=== PATIENT | female | born 1980 | race Caucasian/White ===

== ENCOUNTER 2016-11-25 15:56 | Inpatient (IN) ==
[2016-11-25] MEDS ORDERED: *HR* HYDROmorphone (PF) 1 MG/ML SYRINGE IVP ONE ×3 (16:25→18:32)
[2016-11-25] MEDS ORDERED: Ondansetron 4 MG/2 ML VIAL IVP ONE (16:25)
[2016-11-25] MEDS ORDERED: 0.9 % Sodium Chloride 1,000 ML IVC ONE ×2 (16:25→18:10)
--- NOTE | 2016-11-25 16:48 | Emergency Department Note ---
Disposition Clinical Impression: Intractable pain Abdominal pain Qualifiers: Abdominal location: epigastric Qualified Code(s): R10.13 - Epigastric pain Pancreatitis Qualifiers: Chronicity: acute Pancreatitis type: alcohol induced Acute pancreatitis complication: unspecified Qualified Code(s): K85.20 - Alcohol induced acute pancreatitis without necrosis or infection Disposition: Admitted As Inpatient Condition: Good Forms: Work/School Release, ED Satisfaction Letter Time of Disposition: 17:48 Abdominal Pain HPI - General Chief Complaint: ED Abdominal Pain Stated Complaint: "pancreatitis" Time Seen by Provider: 11/25/16 16:01 Source: patient Mode of arrival: ambulatory Limitations: no limitations Nursing Notes Reviewed: Yes Vital Signs Reviewed: Yes - History of Present Illness HPI Narrative: Patient presents emergency room with complaint of abdominal pain midepigastric area. This is similar to all of her other episodes of pancreatitis. She did that she drink alcohol again 3 days ago and since then has had severe pain. Denies fevers chills has had intermittent normal discomfort with nausea vomiting and no diarrhea. Denies chest pain or shortness of breath. This is identical longer other pancreatitis exacerbation secondary to alcohol Pt Subjective Complaint: abdominal pain Onset (ago): day(s) Consistency: constant Location: epigastric Pain Severity: severe Pain Scale: 10 Quality: stabbing Radiation: epigastric Migration to: no migration Worsens with: eating, vomiting, movement Associated symptoms: Reports: nausea, vomiting, chills. Denies: diarrhea, fever Treatments prior to arrival: none - Related Data Home Medications Medication Instructions Recorded Confirmed Buspirone HCl [Buspar] 15 mg PO BID 05/26/16 05/26/16 LORazepam [Ativan] 1 mg PO AD 05/26/16 05/26/16 Labetalol [Trandate] 100 mg PO BID 05/26/16 05/26/16 Pantoprazole Sodium [Protonix] 40 mg PO DAILY 05/26/16 05/26/16 Previous Rx's Medication Instructions Recorded CloNIDine HCl [Kapvay] 0.2 mg PO TID #90 05/27/16 Folic Acid 1 mg PO DAILY #30 tablet 05/27/16 Labetalol [Trandate] 100 mg PO BID #60 tablet 05/27/16 OxyCODONE/APAP 7.5/325 [Percocet 1 each PO Q6H PRN #20 tablet 05/27/16 7.5/325 MG] Thiamine (B-1) [Vitamin B-1] 100 mg PO DAILY #30 tablet 05/27/16 Vitamin B Complex/Vit C/Vit E 1 each PO DAILY #30 tablet 05/27/16 [Stresstab] Allergies Allergy/AdvReac Type Severity Reaction Status Date / Time No Known Allergies Allergy Verified 11/25/16 16:01 All systems ED: reviewed and negative except as stated. Constitutional: Denies: chills Cardiovascular: Denies: chest pain, palpitations Respiratory: Denies: dyspnea, wheezes Gastrointestinal: Reports: abdominal pain, nausea, vomiting. Denies: diarrhea Musculoskeletal: Denies: back pain, neck pain Abdominal Pain PMH - Past Medical History Medical history: Reports: hypertension, other Female Surgical History: Reports: no surgical history Psychiatric history: Reports: no psych history, depression - Social History Smoking status: Current every day smoker Alcohol use: Reports: heavy, recent Drug use: Reports: none Physical Exam - General Limitations: no limitations General appearance: alert, in no apparent distress - Chest Chest inspection: Present: normal inspection - Cardiovascular Cardiovascular exam: Present: normal rhythm, tachycardia, normal heart sounds - Abdominal Exam Abdominal exam: Present: soft, tenderness, guarding, normal bowel sounds. Absent: distention, rebound, rigidity, Hyman's sign, Rovsing's sign, tenderness at McBurney's Point, pulsatile mass, hernia - Extremities Exam Extremities exam: Present: normal inspection, full ROM - Neurological Exam Neurological exam: Present: alert, oriented X3, CN II-XII intact - Psychiatric Psychiatric exam: Present: normal affect, normal mood - Skin Skin exam: Present: warm, dry, intact, normal color Course Course Narrative: Patient seen and examined the time of arrival. See history of present illness. Patient presents today for what she thinks is an acute flareup of her pancreatitis. She has a 7/10 she drinks alcohol. Patient drank alcohol 3 days ago. Since then she has had intermittent epigastric pain and today it became constant. She denies any fevers chills she has intermittent nausea vomiting. Denies any diarrhea. Denies chest pain shortness of breath headache vision change. On arrival to the room patient is requesting medication patient physical exam is abdominal pain and discomfort. Mild guarding no rigidity no peritoneal symptoms. Symptoms appear to assess the epigastrium. "I need pain medicine" patient has no other acute findings and evaluation. IV access to be obtained fluids nausea medication pain medication given. Nothing by mouth status advised the patient will be placed. Patient laboratory workup also including lipase. Patient had CT scan performed in April. At that time. Refrain from CT this time because it is a similar presentation of her chronic pancreatitis Patient is otherwise stable resting comfortably in the bed. Admission process will be discussed on - Reevaluation(s) Reevaluation #1: Labs consistent with a nonobstructive pancreatitis at this time. Patient viral fluids and second dose of pain medication. Urinalysis is pending at this point. Initial process completed consultation placement patient was reviewed with the hospitalist . We reviewed the patient's presentation symptoms medical history multiple evaluations in the emergency room. Urinalysis and urine drug screen are pending. Otherwise no other acute issues noted during the treatment course and evaluation. Patient will be admitted to the hospital for definitive management with nothing by mouth status for acute pancreatitis. CT imaging was not done at this time secondary to patient recently having a CAT scan performed in April. Patient's symptoms appear to identical to her previous PEG otitis episodes. Abdomen is soft with no other specific point tenderness or issue. Patient is otherwise comfortable resting in the bed at this time. Time: 17:47 Vital Signs Temperature 97.8 F 11/25/16 15:57 Pulse Rate 127 11/25/16 15:57 Respiratory Rate 18 11/25/16 15:57 Blood Pressure 179/115 11/25/16 15:57 O2 Sat by Pulse Oximetry 99 11/25/16 15:57 Temperature 97.8 F 11/25/16 15:57 Pulse Rate 127 11/25/16 15:57 Respiratory Rate 18 11/25/16 15:57 Blood Pressure 179/115 11/25/16 15:57 O2 Sat by Pulse Oximetry 99 11/25/16 15:57 Oxygen Delivery Oxygen Delivery Room Air Abdominal Pain - MDM Narrative Medical decision making narrative: Abdominal pain, nausea, vomiting, pancreatitis - Medical Records Medical records reviewed: Yes I reviewed the patient's medical records. - Lab Data Lab results reviewed: Yes I reviewed the patient's lab results.
[2016-11-25 16:50] LABS: Basophils # 0.1 K/mcL (0.0-0.2); Basophils % 0.4 %; Eosinophils % 0.2 %; Hematocrit 42.8 % (35.3-44.9); Hemoglobin 15.1 g/dL (11.5-15.4); Immature Granulocytes % 0.4 % (0-4); Lymphocytes # 2.2 K/mcL (0.6-4.6); Mean Corpuscular HGB Conc 35.3 g/dL (31.6-35.5); Mean Corpuscular Hemoglobin 32.7 pg (28.0-33.3); Mean Corpuscular Volume 92.6 fL (83.0-100.0); Mean Platelet Volume 8.9 fL (9.4-12.4); Monocytes # 0.9 K/mcL (0.0-1.3); Neutrophils # 9.7 K/mcL (1.6-8.9); Platelet Count 260 K/mcL (140-400); Red Blood Count 4.62 M/mcL (3.82-4.97)
[2016-11-25 17:04] LABS: Alanine Aminotransferase 18 Units/L (0-55); Alkaline Phosphatase 90 Units/L (38-126); Aspartate Amino Transferase 57 Units/L (5-34); BUN/Creatinine Ratio 20 (6-26); Bilirubin,Direct 0.4 mg/dL (0.0-0.5); Bilirubin,Indirect 0.3 mg/dL (0.0-1.2); Bilirubin,Total 0.7 mg/dL (0.2-1.2); Blood Urea Nitrogen 14 mg/dL (7-20); Calcium 8.9 mg/dL (8.6-10.8); Carbon Dioxide 22 mEq/L (19-29); Chloride 99 mEq/L (98-109); Glucose 124 mg/dL (70-99); Lipase 245 Units/L (8-78); Osmolality,Calculated 292 (280-300); Potassium 3.3 mEq/L (3.5-4.5); Sodium 140 mEq/L (136-145); eGFR For African Americans > 60 (> 60); eGFR For Non-African Americans > 60 (> 60)
--- NOTE | 2016-11-25 17:18 | Emergency Department Note ---
START Narrative - START START: I personally interviewed and examined this patient and my medical decision- making was reviewed with the ED Resident Physician, Dr. Richardson. I agree with the documented findings, disposition and treatment plan as described except to the extent set forth below. She is a 36-year-old white female with a prior history of pancreatitis which is secondary to her alcohol use. Patient states she last drank on Monday and then has been having gradually worsening epigastric abdominal pain rating her back with nausea and vomiting for the last 48 hours. Patient denies any fevers or chills, no chest pain shortness of breath. No urinary symptoms or flank pain. Patient denies any other associated symptoms. On exam she has mild tenderness to palpation in the epigastric area otherwise abdomen is soft with no pain signs. Remainder of exam is unremarkable with the exception of a mild tachycardia. Initiated IV fluids, pain medications and antiemetics and patient with elevated lipase reflecting pancreatitis. We will obtain imaging and admit the patient for further IV fluids and pain control.
[2016-11-25 17:50] LABS: Bilirubin,Urine Small (Negative); Blood,Urine Small (Negative); Clarity,Urine Cloudy (Clear); Color,Urine Dark Yellow (Yellow); Glucose,Urine (UA) Normal (Normal); Ketones,Urine Trace mg/dL (Negative); Leukocyte Esterase,Urine Negative (Negative); Nitrite,Urine Negative (Negative); Protein,Urine >=300 mg/dL (Neg-Trace); Specific Gravity,Urine > 1.030 (1.010-1.025); Urobilinogen,Urine Normal (Normal)
[2016-11-25 17:55] LABS: Bacteria,Urine Few per hpf (None-Few); Hyaline Casts,Urine Few per lpf (None-Few); Squamous Epithelial Cell,Urine Many per lpf (None-Few)
[2016-11-25] MEDS ORDERED: *HR* HYDROmorphone (PF) 1 MG/ML SYRINGE IVP PRN (18:06)
[2016-11-25] MEDS ORDERED: Naloxone 0.4 MG/ML INJ IVP PRN (18:06)
[2016-11-25] MEDS ORDERED: Ondansetron 4 MG/2 ML VIAL IVP PRN (18:06)
[2016-11-25] MEDS ORDERED: *HR* Metoprolol 5 MG/5 ML VIAL IVP PRN (18:10)
[2016-11-25] MEDS ORDERED: Potassium Chloride 20 MEQ, Lidocaine 1% 2 ML in D5% in Water 250 ML IVPB ONE (18:12)
[2016-11-25] MEDS ORDERED: 0.9 % Sodium Chloride 1,000 ML IVC SCH ×2 (18:15→20:19)
--- NOTE | 2016-11-25 18:20 | Internal Med History&Physical ---
<Breanna Tate M - Last Filed: 11/25/16 20:41> Date of Encounter: 11/25/16 Time of Encounter: 18:20 Assessment and Plan (1) Pancreatitis Current visit: No Status: Acute Patient with recurrent pancreatitis, reports she drank alcohol on Monday. She presents with abdominal pain, nausea and vomiting. Lipase elevated to 245. AST elevated to 57. 2L fluid boluses ordered 0.9NS at 150ml/hr CT abd/pelvis NPO Advance to clear liquids tomorrow if tolerated IV dilaudid PRN for pain Zofran PRN for nausea Narcan PRN for respiratory depression. Qualifiers: Chronicity: acute Pancreatitis type: alcohol induced Acute pancreatitis complication: unspecified Qualified Code(s): K85.20 - Alcohol induced acute pancreatitis without necrosis or infection (2) Hypokalemia Current visit: No Status: Acute Potassium of 3.3. 20mEq of potassium IVPB recheck chemistry tomorrow. (3) Alcohol dependence Current visit: No Status: Chronic Patient reports she drinks 2-3 times per week, despite having chronic pancreatitis and knowing that alcohol aggravates her pancreatitis. Serum and urine alcohol checks CIWA protocol. MVI IV fluids x 3. SWK consulted. Qualifiers: Substance use status: other alcohol-induced disorder Qualified Code(s): F10.288 - Alcohol dependence with other alcohol-induced disorder (4) Tachycardia Current visit: Yes Status: Acute HR 120s, likely secondary to dehydration with poor appetite yesterday and nausea /vomiting today. UA consistent with dehydration. Will hydrate with 2L of fluid boluses and 0.9NS at 150mL/hr. Continuous cardiac rehab nurse. (5) Hypertension Current visit: No Status: Acute Patient reports she hasn't taken any medication for her blood pressure recently due to lack of insurance. Patient hypertensive. Start metoprolol 25mg XL daily, and Lisinopril 5mg daily. Metoprolol 5mg IVP Q6hr PRN for SBP > 160 or DBP > 100. Qualifiers: Hypertension type: essential hypertension Qualified Code(s): I10 - Essential (primary) hypertension (6) Proteinuria Current visit: Yes Status: Acute UA showed large proteinuria. May be due to dehydration, but will check Hgb A1c , Urine P/C, urine microalbumin. Repeat UA tomorrow morning. Qualifiers: Proteinuria type: unspecified Qualified Code(s): R80.9 - Proteinuria, unspecified (7) DVT prophylaxis Current visit: No Status: Acute encourage ambulation anti-embolic stockings lovenox 40mg SQ daily Internal Medicine - H&P: HPI Chief complaint: abdominal pain, nausea and vomiting Admitted From: Emergency Dept Plans for Post Hospital Care: Home History of present illness: Ms. Anderson is a 36 year old female with history of chronic pancreatitis and hypertension and anxiety presents to the emergency room with complaints of abdominal pain, nausea, and vomiting. Patient reports yesterday she had a poor appetite, and abdominal pain started last evening. She describes it as sharp, constant, and worsening over time. It was somewhat relieved by pain medication given in the emergency department. Today she developed nausea and vomiting, and has not been able to eat or drink anything all day. She reports some lightheadedness, some palpitations. She denies any headache, chest pain, shortness of breath, or cough. She reports chills and sweats. Patient reports she drank alcohol on Monday, and knows that this is what exacerbates her pancreatitis. Evaluation emergency department revealed mildly elevated white blood cell count of 12.9. Elevated lipase of 245. Elevated AST of 57. She is tachycardic with heart rate in the 120s to 130s. Blood pressure is also elevated. She was mildly hypokalemic with potassium of 3.3. On exam, patient is alert and oriented, in no acute distress. Heart has tachycardic but regular rhythm, lungs are clear bilaterally to auscultation. Abdomen is tender to palpation in epigastric and right upper quadrant. Past Med Surg Social Fam HX - Past Medical History Medical history: hypertension, other Psychiatric history: depression - Past Surgical History Surgical History: no surgical history, other (tonsillectomy) - Social History Smoking Status: Current every day smoker Smokeless Tobacco Status: No Alcohol use: heavy, recent Drug use: none - Family History Father Living Status: Still Living Hx Family Cardiac Disorders: No Hx Family Respiratory Disorders: No Hx Family Cancer: Yes Hx Family GI Disorders: No Hx Family Endocrine Disorder: No Hx Family Neuromuscular Disorders: No Hx Family Neurologic Disorders: No Hx Family HEENT Disorders: No Hx Family Autoimmune Disorders: No Internal Medicine - H&P: Meds No Known Home Drugs 11/25/16 [History] Allergies No Known Allergies Allergy (Verified 11/25/16 16:01) All Systems PM: A 10-system review of systems was performed and is negative for pertinent findings except as documented above in the HPI. - Constitutional Constitutional: anorexia, chills, no fever(s), no night sweats - EENT Eyes: no change in vision, no discharge, no pain, no photophobia Ears: no ear discharge, no ear pain, no tinnitus Nose, mouth and throat: no dysphagia, no nasal discharge, no neck pain, no sore throat - Cardiovascular Cardiovascular ROS IM: lightheadedness, palpitations, no chest pain, no diaphoresis, no dyspnea, no syncope - Respiratory Respiratory: no cough, no dyspnea, no wheezing, no excessive phlegm production - Gastrointestinal Gastrointestinal: abdominal pain, nausea, vomiting, no diarrhea, no hematemesis , no hematochezia, no melena - Genitourinary Genitourinary: no change in urinary stream, no dysuria, no flank pain, no hematuria - Musculoskeletal Musculoskeletal ROS IM: no numbness, no tingling - Integumentary Integumentary IM: no rash, no unusual bruising - Neurological Neurological ROS: no confusion, no convulsions, no focal weakness, no numbness, no tingling, no tremor(s) - Hematologic/Lymphatic Hematologic/Lymphatic: no easy bruising - Constitutional Vitals: Temp Pulse Resp BP Pulse Ox 97.8 F 122 16 168/107 97 11/25/16 15:57 11/25/16 17:30 11/25/16 17:30 11/25/16 17:30 11/25/16 17:30 General appearance: Present: A&O X 3, pleasant, obese - Head Head exam: Present: atraumatic, normocephalic - Eye Eye exam: Present: PERRL, conjuntiva pink, sclera anicteric Pupils: Present: PERRL - Neck Neck exam general surgery: Present: supple, trachea midline. Absent: lymphadenopathy - Respiratory Respiratory exam: Present: CTAB. Absent: accessory muscle use, rales, rhonchi, wheezes - Cardiovascular Cardiovascular exam: Present: +S1, +S2, tachycardia. Absent: diastolic murmur, gallop, rubs, systolic murmur - GI/Abdominal GI/Abdominal exam: Present: guarding, normal bowel sounds, soft, tenderness, no peritoneal signs. Absent: distended - Extremities Exam Extremities exam: Present: warm, radial pulses palpable and symetrical. Absent : calf tenderness, cyanotic, pedal edema - Neurological Exam Neurological exam: Present: CN II-XII intact, oriented X3, no focal deficits. Absent: facial droop, speech deficit - Skin Skin exam: Present: dry, intact Internal Med - H&P Results - Labs CBC & Chem 7: 11/25/16 16:38 11/25/16 16:38 Labs: All Lab Results (24 Hours) 11/25/16 11/25/16 11/25/16 Range/Units 16:38 16:38 17:40 WBC 12.9 H (4.3-11.1) K/mcL RBC 4.62 (3.82-4.97) M/mcL Hgb 15.1 (11.5-15.4) g/dL Hct 42.8 (35.3-44.9) % MCV 92.6 (83.0-100.0) fL MCH 32.7 (28.0-33.3) pg MCHC 35.3 (31.6-35.5) g/dL RDW 12.0 (11.5-14.5) % Plt Count 260 (140-400) K/mcL MPV 8.9 L (9.4-12.4) fL Immature Gran % 0.4 (0-4) % Seg Neutrophils % 75.0 % Lymphocytes % 17.0 % Monocytes % 7.0 % Eosinophils % 0.2 % Basophils % 0.4 % Neutrophils # 9.7 H (1.6-8.9) K/mcL Lymphocytes # 2.2 (0.6-4.6) K/mcL Monocytes # 0.9 (0.0-1.3) K/mcL Eosinophils # 0.0 (0.0-0.6) K/mcL Basophils # 0.1 (0.0-0.2) K/mcL Immature Plt Fraction 3.0 (1.1-6.1) % Sodium 140 (136-145) mEq/L Potassium 3.3 L (3.5-4.5) mEq/L Chloride 99 (98-109) mEq/L Carbon Dioxide 22 (19-29) mEq/L BUN 14 (7-20) mg/dL Creatinine 0.69 (0.57-1.11) mg/dL Est GFR ( Amer) > 60 (> 60) Est GFR (Non-Af Amer) > 60 (> 60) BUN/Creatinine Ratio 20 (6-26) Glucose 124 H (70-99) mg/dL Calculated Osmolality 292 (280-300) Calcium 8.9 (8.6-10.8) mg/dL Total Bilirubin 0.7 (0.2-1.2) mg/dL Direct Bilirubin 0.4 (0.0-0.5) mg/dL Indirect Bilirubin 0.3 (0.0-1.2) mg/dL AST 57 H (5-34) Units/L ALT 18 (0-55) Units/L Alkaline Phosphatase 90 (38-126) Units/L Serum Total Protein 8.0 (6.0-8.3) g/dL Albumin 4.0 (3.5-5.0) g/dL Globulin 4.0 H (2.4-3.5) g/dL Albumin/Globulin Ratio 1.0 L (1.1-2.2) Lipase 245 H (8-78) Units/L Urine Color Dark Yellow (Yellow) Urine Clarity Cloudy A (Clear) Urine pH 6.0 (5.0-8.0) pH Units Ur Specific Hensel > 1.030 H (1.010-1.025) Urine Protein >=300 H (Neg-Trace) mg/dL Urine Glucose (UA) Normal (Normal) mg/dL Urine Ketones Trace H (Negative) mg/dL Urine Blood Small H (Negative) Urine Nitrite Negative (Negative) Urine Bilirubin Small H (Negative) Urine Urobilinogen Normal (Normal) mg/dL Ur Leukocyte Esterase Negative (Negative) Urine Microscopic RBC 5-15 H (0-3) per hpf Urine Microscopic WBC 5-15 H (0-3) per hpf Ur Squamous Epith Cells Many H (None-Few) per lpf Urine Bacteria Few (None-Few) per hpf Hyaline Casts Few (None-Few) per lpf Ur Culture Indicated? YES A (NO) Urine Test (Negative) Urine Opiates Screen (Fxehhr=757) ng/mL Ur Barbiturates Screen (Idoicm=047) ng/mL Ur Phencyclidine Scrn (Cutoff=25) ng/mL Ur Amphetamines Screen (Wqzfmp=9152) ng/mL U Benzodiazepines Scrn (Kfpgjy=910) ng/mL Urine Cocaine Screen (Cutoff= 300) ng/mL U Marijuana (THC) Screen (Cutoff = 50) ng/mL 11/25/16 11/25/16 Range/Units 17:40 17:40 WBC (4.3-11.1) K/mcL RBC (3.82-4.97) M/mcL Hgb (11.5-15.4) g/dL Hct (35.3-44.9) % MCV (83.0-100.0) fL MCH (28.0-33.3) pg MCHC (31.6-35.5) g/dL RDW (11.5-14.5) % Plt Count (140-400) K/mcL MPV (9.4-12.4) fL Immature Gran % (0-4) % Seg Neutrophils % % Lymphocytes % % Monocytes % % Eosinophils % % Basophils % % Neutrophils # (1.6-8.9) K/mcL Lymphocytes # (0.6-4.6) K/mcL Monocytes # (0.0-1.3) K/mcL Eosinophils # (0.0-0.6) K/mcL Basophils # (0.0-0.2) K/mcL Immature Plt Fraction (1.1-6.1) % Sodium (136-145) mEq/L Potassium (3.5-4.5) mEq/L Chloride (98-109) mEq/L Carbon Dioxide (19-29) mEq/L BUN (7-20) mg/dL Creatinine (0.57-1.11) mg/dL Est GFR ( Amer) (> 60) Est GFR (Non-Af Amer) (> 60) BUN/Creatinine Ratio (6-26) Glucose (70-99) mg/dL Calculated Osmolality (280-300) Calcium (8.6-10.8) mg/dL Total Bilirubin (0.2-1.2) mg/dL Direct Bilirubin (0.0-0.5) mg/dL Indirect Bilirubin (0.0-1.2) mg/dL AST (5-34) Units/L ALT (0-55) Units/L Alkaline Phosphatase (38-126) Units/L Serum Total Protein (6.0-8.3) g/dL Albumin (3.5-5.0) g/dL Globulin (2.4-3.5) g/dL Albumin/Globulin Ratio (1.1-2.2) Lipase (8-78) Units/L Urine Color (Yellow) Urine Clarity (Clear) Urine pH (5.0-8.0) pH Units Ur Specific Hensel (1.010-1.025) Urine Protein (Neg-Trace) mg/dL Urine Glucose (UA) (Normal) mg/dL Urine Ketones (Negative) mg/dL Urine Blood (Negative) Urine Nitrite (Negative) Urine Bilirubin (Negative) Urine Urobilinogen (Normal) mg/dL Ur Leukocyte Esterase (Negative) Urine Microscopic RBC (0-3) per hpf Urine Microscopic WBC (0-3) per hpf Ur Squamous Epith Cells (None-Few) per lpf Urine Bacteria (None-Few) per hpf Hyaline Casts (None-Few) per lpf Ur Culture Indicated? (NO) Urine Test Negative (Negative) Urine Opiates Screen Positive H (Wbpwyc=159) ng/mL Ur Barbiturates Screen Negative (Cyqmfq=019) ng/mL Ur Phencyclidine Scrn Negative (Cutoff=25) ng/mL Ur Amphetamines Screen Negative (Kwojlb=7860) ng/mL U Benzodiazepines Scrn Negative (Hfjljh=180) ng/mL Urine Cocaine Screen Negative (Cutoff= 300) ng/mL U Marijuana (THC) Screen Negative (Cutoff = 50) ng/mL <Eleazar Esqueda - Last Filed: 11/26/16 04:50> Date of Encounter: 11/25/16 Internal Medicine - H&P: HPI Admitted From: Emergency Dept Plans for Post Hospital Care: Home History of present illness: Ms. Anderson is a 36 year old female with significant history of chronic alcoholism/dependency/abuse, retention, OA, GERD, anemia of chronic disease, alcohol induced pancreatitis/chronic pancreatitis, obesity with deconditioning, nicotine dependency, etc.. The patient was admitted to [facility] via the emergency department when she presented with reports of abdominal pain. The patient has a history of chronic recurring pancreatitis. Today symptoms reminiscent of exacerbations experiences in the past. Mid abdominal epigastric area with radiation to the flank. The patient is a knowledged alcoholic. Her pancreatic disease felt induced by her alcoholism. She acknowledges drinking alcohol again 3 days prior to presentation. The history has been one of fever and shaking at L4 constant indigestion and extended periods. Following her admission of alcohol she began to experience severe burning discomfort. She denies any associated fevers chills sweats. She had noticed intermittent episodes of extended discomfort associated with nausea or vomiting. Denies any diarrhea. Denies chest pain. Denies any upper respiratory complaints. She presents with severe pain that she rates at 10/10 severity stabbing constant. She denies a migratory feature to it with today's symptoms of epigastric and focus. Symptoms are worsened with any oral intake following episodes of vomiting and movement. Denies any evidences of bleeding events either coffee- ground emesis epistaxis with blood per rectum melena hematochezia. These studies are significant for significant electrolyte disturbances. Potassium 3.3 , ionized calcium 1.0, magnesium 1.0. Lactic acid 3.1. Ethyl alcohol level less than 10. Lipase elevated at 245 urinalysis demonstrating marked proteinuria and sediment suggestive of associated UTI and general dehydration. Vital signs were noteworthy for tachycardia with heart rates 120-140s and accelerated hypertension/urgency with measures of 179/115. EKG demonstrated chronic ischemic changes for progression of the anterior-anteroseptal wall. Mild T-wave inversions 3 and aVF and mild ST depressions in the lateral leads. No acute ischemic changes remanifest. Radiographic findings did note mild cardiomegaly likely consistent with nonischemic cardiomyopathy seen in alcoholic populations. CT of the abdomen and pelvis will be obtained. The patient was encephalopathic and mild delirium was apparent he has some background of dysphoria/depressed mood. A UDS was obtained and positive for opiates. Final identification pending. Her presentation was suggestive of early alcohol withdrawal. Concomitant positive UDS raises question of visit drug use with his own secondary to adverse withdrawal concerns.. SIRS/sepsis criteria are present at the time of admission. The patient will receive a comprehensive supportive care measures and be initiated on appropriate cautionary protocols and's surveillance. Vigorous fluid rehydration therapy completion of electrolyte and metabolic deficits, etc. proceed. She is at risk for further acute clinical decline and morbidity given her presenting chief concerns, findings and historic comorbidities.. Patient was visited and interviewed and examined. I examined this patient and my medical decision-making was reviewed with the Advanced Practice Nurse, Ms. Breanna Tate. For this encounter, I have reviewed the CABLE ENGINEER documentation, treatment plan, and medical decision making. I have had face to face time with this patient. Cumulative laboratory and radiographic database was reviewed, considered and discussed.. I agree with the documented findings, disposition and treatment plan as described except to the extent set forth below. Given the patient's presenting concerns, past medical history, clinical findings and symptoms, she was admitted at this time to undergo further evaluation and disposition. Condition is serious; unstable with multiorgan derangements. Prognosis is guarded. CODE STATUS is full. Past Med Surg Social Fam HX - Past Medical History Source: old records reviewed Medical history: arthritis, cardiomyopathy (?Alcohol-induced cardiomyopathy), GERD, hypertension, kidney stones, liver disease (Hepatic steatosis. Cholelithiasis.), migraine, renal disease, other (Chornic pancreatitis. Chronic alcoholism.) Psychiatric history: anxiety, depression, other - Past Surgical History Surgical History: non-contributory, other - Social History Smoking Status: Current every day smoker Drug use: none, unknown Occupational status: unemployed Current living situation: Home - Independent, Home Activity Level: Independent ambulation, Mostly sedentary Recent Out of Country Travel Within the Last 8 Weeks: No Exposure or Possible Exposure to Illness During Travel: No ROS unobtainable: due to mental status All Systems PM: A 10-system review of systems was performed and is negative for pertinent findings except as documented above in the HPI. - Constitutional Constitutional: as per HPI - EENT Eyes: as per HPI Ears: as per HPI Nose, mouth and throat: as per HPI - Cardiovascular Cardiovascular ROS IM: as per HPI - Respiratory Respiratory: as per HPI - Gastrointestinal Gastrointestinal: as per HPI - Genitourinary Genitourinary: as per HPI Menstruation: as per HPI - Musculoskeletal Musculoskeletal ROS IM: as per HPI - Integumentary Integumentary IM: as per HPI - Neurological Neurological ROS: as per HPI - Psychiatric Psychiatric: as per HPI - Endocrine Endocrine IM: as per HPI - Hematologic/Lymphatic Hematologic/Lymphatic: as per HPI - Allergic/Immunologic Allergic/Immunologic: as per HPI - Constitutional Vitals: Temp Pulse Resp BP Pulse Ox 97.9 F 139 16 162/133 94 11/25/16 20:37 11/25/16 20:37 11/25/16 20:37 11/25/16 20:37 11/25/16 20:37 Vital Signs Temp Pulse Resp BP Pulse Ox 11/25/16 20:37 97.9 F 139 16 162/133 94 11/25/16 19:15 16 194/135 11/25/16 17:30 122 16 168/107 97 11/25/16 17:00 128 16 167/113 97 11/25/16 15:57 97.8 F 127 18 179/115 99 Intake and Output 11/25/16 11/25/16 11/25/16 07:59 15:59 23:59 Intake Total 1000 / 1000 Balance 1000 / 1000 Intake: IV Fluids 1000 / 1000 0.9 % Sodium Chloride 1, 1000 / 1000 000 ML @ 3750 mls/hr IVC .Q16M ONE Rx#:[id number] Other: Weight 72.575 kg Patient Weight 11/25/16 23:59 Weight 72.575 kg Internal Med - H&P Results - Labs CBC & Chem 7: 11/25/16 16:38 11/25/16 16:38 - ABG Interpretation ABG results: 11/25/16 21:42 VBG pH 7.35 VBG pCO2 50 VBG pO2 57 H VBG HCO3 27.6 H - Attending Attestation My signature below is to certify that this patient is under my care and that I, or Nurse Practitioner working with me, has had a [id number] encounter with this patient.
[2016-11-25 18:21] LABS: Amphetamine Screen,Urine Negative ng/mL (Cutoff=1000); Barbiturate Screen,Urine Negative ng/mL (Cutoff=200); Benzodiazepines Screen,Urine Negative ng/mL (Cutoff=200); Cannabinoid Screen,Urine Negative ng/mL (Cutoff = 50); Cocaine Screen,Urine Negative ng/mL (Cutoff= 300); Opiate Screen,Urine Positive ng/mL (Cutoff=300); Phencyclidine Screen,Urine Negative ng/mL (Cutoff=25)
[2016-11-25] MEDS ORDERED: Ondansetron 4 MG/2 ML VIAL IV ONE (18:33)
[2016-11-25] MEDS ORDERED: *HR* LORazepam 2 MG/ML VIAL IVP PRN ×2 (18:33)
[2016-11-25] MEDS: *HR* LORazepam 2 MG/ML VIAL IVP PRN (19:57)
[2016-11-25] MEDS: Pantoprazole 40 MG VIAL IVP SCH (20:23)
[2016-11-25] MEDS ORDERED: traZODone 50 MG TABLET PO PRN (20:27)
[2016-11-25 20:44] LABS: Hemoglobin A1C 5.6 %
[2016-11-25 21:07] LABS: Protein/Creatinine Ratio,Urine 0.94 mg/mg (0-0.20)
[2016-11-25 21:08] LABS: Thyroid Stimulating Hormone 0.71 mcIU/mL (0.350-4.840); Triiodothyronine (T3) Free 2.65 pg/mL (1.71-3.71)
[2016-11-25] MEDS ORDERED: Benzonatate 100 MG CAPSULE PO PRN (21:20)
[2016-11-25] MEDS ORDERED: Scopolamine Patch 1.5 MG PATCH.TD72 TD ONE (21:20)
[2016-11-25] MEDS ORDERED: Ipratropium/Albuterol Neb 3 ML IH PRN (21:20)
[2016-11-25] MEDS ORDERED: *HR* Promethazine 25 MG/ML VIAL IVP PRN (21:25)
[2016-11-25] MEDS ORDERED: Ibuprofen 400 MG TABLET PO PRN (21:25)
[2016-11-25 22:02] LABS: VBG HCO3 27.6 mEq/L (21-27); VBG PH 7.35 pH Units (7.32-7.42)
[2016-11-25] MEDS: Metoprolol XL (24 HR) Succ 25 MG TAB.ER.24H PO SCH (22:07)
[2016-11-25 22:11] LABS: Beta-Hydroxybutyric Acid 0.24 mmol/L (0.02-0.27)
[2016-11-25] MEDS: *HR* HYDROmorphone (PF) 1 MG/ML SYRINGE IVP PRN (22:15)
[2016-11-25] MEDS: Melatonin 3 MG TABLET PO SCH (22:16)
[2016-11-25 22:33] LABS: Thyroid Stimulating Hormone 2.295 mcIU/mL (0.350-4.840)
[2016-11-25] MEDS: Nicotine 21 MG PATCH.TD24 TD SCH (22:41)
[2016-11-26] MEDS ORDERED: Promethazine 12.5 MG in 0.9 % Sodium Chloride 50 ML IVPB SCH
[2016-11-26] MEDS: *HR* HYDROmorphone (PF) 1 MG/ML SYRINGE IVP PRN ×11 (00:09→22:30)
[2016-11-26] MEDS ORDERED: Promethazine 12.5 MG in 0.9 % Sodium Chloride 50 ML IVPB PRN (01:01)
[2016-11-26] MEDS: *HR* LORazepam 2 MG/ML VIAL IVP PRN ×7 (02:34→20:26)
[2016-11-26] MEDS ORDERED: PHENobarbital 65 MG/ML VIAL IVP STA (03:57)
[2016-11-26] MEDS ORDERED: Calcium Gluconate 1,000 MG in D5% in Water 100 ML IVPB ONE (03:57)
[2016-11-26] MEDS ORDERED: Magnesium Sulfate 2 GM in D5% in Water 100 ML IVPB STA (04:03)
[2016-11-26] MEDS ORDERED: Potassium Chloride 20 MEQ, Lidocaine 1% 2 ML in D5% in Water 250 ML IVPB ONE ×2 (04:11→07:53)
[2016-11-26] MEDS ORDERED: 0.9 % Sodium Chloride 1,000 ML IVC ONE (04:13)
[2016-11-26] MEDS ORDERED: Haloperidol Lactate 5 MG/ML VIAL IVP PRN (04:14)
[2016-11-26 06:11] LABS: Basophils % 0.4 %; Eosinophils # 0.1 K/mcL (0.0-0.6); Eosinophils % 0.5 %; Hematocrit 37.8 % (35.3-44.9); Immature Granulocytes % 0.5 % (0-4); Lymphocytes # 2.4 K/mcL (0.6-4.6); Lymphocytes % 24.1 %; Mean Corpuscular HGB Conc 34.4 g/dL (31.6-35.5); Mean Corpuscular Volume 95.9 fL (83.0-100.0); Mean Platelet Volume 9.1 fL (9.4-12.4); Monocytes # 0.8 K/mcL (0.0-1.3); Monocytes % 8.2 %; Neutrophils # 6.6 K/mcL (1.6-8.9); Platelet Count 180 K/mcL (140-400); Red Blood Count 3.94 M/mcL (3.82-4.97); Red Cell Distribution Width 12.1 % (11.5-14.5); Segmented Neutrophils % 66.3 %
[2016-11-26 06:15] LABS: INR 1.2; Prothrombin Time 12.9 Seconds (9.4-12.1)
[2016-11-26 06:18] LABS: Activated Partial Thrombo Time 32.2 Seconds (26.0-36.0)
[2016-11-26 06:27] LABS: Phosphorous 1.9 mg/dL (2.3-4.7)
[2016-11-26 06:31] LABS: Lactate Dehydrogenase 183 Units/L (159-327); Lipase 259 Units/L (8-78)
[2016-11-26 06:33] LABS: BUN/Creatinine Ratio 20 (6-26); Blood Urea Nitrogen 13 mg/dL (7-20); Calcium 8.2 mg/dL (8.6-10.8); Carbon Dioxide 23 mEq/L (19-29); Chloride 105 mEq/L (98-109); Cholesterol 152 mg/dL (< 200); Glucose 171 mg/dL (70-99); HDL Cholesterol 77 mg/dL (40-59); LDL Cholesterol,Calculated 51 mg/dL (0-99); Osmolality,Calculated 292 (280-300); Potassium 3.2 mEq/L (3.5-4.5); Sodium 139 mEq/L (136-145); Triglycerides 120 mg/dL (< 150); eGFR For African Americans > 60 (> 60); eGFR For Non-African Americans > 60 (> 60)
[2016-11-26 06:51] LABS: Triiodothyronine (T3) Free 3.15 pg/mL (1.71-3.71)
[2016-11-26] MEDS: *HR* Enoxaparin 40 MG/0.4 ML SYRINGE SQ SCH (06:55)
[2016-11-26] MEDS ORDERED: *HR* LORazepam 2 MG/ML VIAL IVP PRN (08:21)
--- NOTE | 2016-11-26 08:38 | Internal Med Progress Note ---
Date of Encounter: 11/26/16 Time of Encounter: 08:35 - Assessment and plan (1) Acute alcoholic pancreatitis Current Visit: No Status: Acute Assessment and plan: Acute on chronic alcoholic pancreatitis Start normal saline with 10 mEq of potassium at 200 cc per hour, may decrease rate when she is less tachycardic and starts clear liquids Monitor lipase, may go back to NPO if pain gets worse Dilated as needed Qualifiers: Acute pancreatitis complication: no infection or necrosis Qualified Code(s) : K85.20 - Alcohol induced acute pancreatitis without necrosis or infection (2) Alcoholism Current Visit: No Status: Acute Assessment and plan: Start Librium and taper, hold if sedated Continue Ativan IV per CIWA scale (3) Hypokalemia Current Visit: No Status: Acute Assessment and plan: Replete as needed (4) Cigarette smoker Current Visit: No Status: Chronic Assessment and plan: Smoking cessation counseling given for 5 minutes, nicotine patch ordered (5) Tachycardia Current Visit: Yes Status: Acute Assessment and plan: Likely related to dehydration Increase IV fluids, may discontinue Cardizem drip once heart rate is better controlled Order an EKG (6) Proteinuria Current Visit: Yes Status: Acute Assessment and plan: Unclear etiology, patient does not show any signs of nephrotic syndrome Qualifiers: Proteinuria type: unspecified Qualified Code(s): R80.9 - Proteinuria, unspecified - Subjective Interval history: Complains of abdominal pain 8 out of 10 in intensity, denies any dysuria, feels very thirsty. Still very tachycardic, anxious, denies any shortness of breath - Constitutional Vitals: Temp Pulse Resp BP Pulse Ox 98.0 F 123 16 135/92 92 11/26/16 07:48 11/26/16 07:48 11/26/16 07:48 11/26/16 07:48 11/26/16 08:00 General appearance: Present: A&O X 3, pleasant, obese Exam: Dry mucosa - Head Head exam: Present: atraumatic, normocephalic - Eye Eye exam: Present: PERRL, conjuntiva pink, sclera anicteric Pupils: Present: PERRL - Neck Neck exam general surgery: Present: supple, trachea midline. Absent: lymphadenopathy - Respiratory Respiratory exam: Present: CTAB. Absent: accessory muscle use, rales, rhonchi, wheezes - Cardiovascular Cardiovascular exam: Present: RRR, +S1, +S2, tachycardia. Absent: diastolic murmur, gallop, rubs, systolic murmur - GI/Abdominal GI/Abdominal exam: Present: distended, normal bowel sounds, soft, tenderness ( Epigastric tenderness, no rebound), no peritoneal signs. Absent: rebound - Extremities Exam Extremities exam: Present: warm, radial pulses palpable and symetrical. Absent : calf tenderness, cyanotic, pedal edema - Neurological Exam Neurological exam: Present: CN II-XII intact, oriented X3, no focal deficits. Absent: pronater drift, facial droop, speech deficit - Skin Skin exam: Present: dry, intact Internal Medicine: Result - Labs CBC & Chem 7: 11/26/16 05:45 11/26/16 05:45 Labs: Short CBC 11/26/16 Range/Units 05:45 WBC 10.0 (4.3-11.1) K/mcL Hgb 13.0 D (11.5-15.4) g/dL Hct 37.8 (35.3-44.9) % Plt Count 180 (140-400) K/mcL Neutrophils # 6.6 (1.6-8.9) K/mcL BMP 11/26/16 05:45 Sodium 139 Potassium 3.2 L Chloride 105 Carbon Dioxide 23 BUN 13 Creatinine 0.65 Glucose 171 H Calcium 8.2 L - ABG Interpretation ABG results: PT/INR, D-dimer PT 12.9 Seconds (9.4-12.1) H 11/26/16 05:45 - Impressions Impressions Abdomen/Pelvis CT 11/25/16 20:15 IMPRESSION: Findings compatible with acute pancreatitis. No loculated fluid collections identified. Mild hyperdensity within the gallbladder is nonspecific but could represent biliary sludge. Hepatic steatosis. Nonobstructing nephrolithiasis. D/ / 11/25/2016 23:19:03 Gallo Robertson MD / [email or web address] Interpreting Provider: Gallo Robertson MD - VTE Documentation of Mechanical Device: Graduated compression elastic hosiery Consult Discharge Plan - Plan Referrals: NO,PCP [Primary Care Provider] -
[2016-11-26] MEDS: Nicotine 21 MG PATCH.TD24 TD SCH (08:48)
[2016-11-26] MEDS: Metoprolol XL (24 HR) Succ 25 MG TAB.ER.24H PO SCH (08:57)
[2016-11-26] MEDS: Magnesium Oxide 400 MG TABLET PO SCH ×2 (08:57→20:05)
[2016-11-26] MEDS: Pantoprazole 40 MG VIAL IVP SCH (08:57)
[2016-11-26] MEDS: Mag Hydrox/Al Hydrox/Simeth 30 ML UDC PO PRN ×2 (08:58→15:48)
[2016-11-26] MEDS ORDERED: Folic Acid 1 MG TABLET PO SCH (09:00)
[2016-11-26] MEDS ORDERED: Vitamin B Complex/Vit C/Vit E 1 EACH TABLET PO SCH (09:00)
[2016-11-26] MEDS: Promethazine 12.5 MG in 0.9 % Sodium Chloride 50 ML IVPB PRN (12:53)
[2016-11-26] MEDS: *HR* OxyCODONE Immed Rel 5 MG TABLET PO PRN (14:29)
[2016-11-26] MEDS ORDERED: Thiamine (B-1) 100 MG, Folic Acid 1 MG, MVI, adult with vitamin K 10 ML in 0.9 % Sodi... IVPB SCH ×2 (18:00)
[2016-11-26] MEDS: Melatonin 3 MG TABLET PO SCH (20:06)
[2016-11-27] MEDS: *HR* HYDROmorphone (PF) 1 MG/ML SYRINGE IVP PRN ×8 (00:45→22:07)
[2016-11-27] MEDS: *HR* LORazepam 2 MG/ML VIAL IVP PRN ×5 (03:28→22:14)
[2016-11-27 05:38] LABS: Alanine Aminotransferase 9 Units/L (0-55); Albumin 2.9 g/dL (3.5-5.0); Albumin/Globulin Ratio 0.8 (1.1-2.2); Alkaline Phosphatase 61 Units/L (38-126); Aspartate Amino Transferase 22 Units/L (5-34); BUN/Creatinine Ratio 6 (6-26); Bilirubin,Total 0.9 mg/dL (0.2-1.2); Blood Urea Nitrogen 3 mg/dL (7-20); Calcium 7.7 mg/dL (8.6-10.8); Carbon Dioxide 23 mEq/L (19-29); Chloride 104 mEq/L (98-109); Globulin 3.5 g/dL (2.4-3.5); Glucose 124 mg/dL (70-99); Lipase 68 Units/L (8-78); Osmolality,Calculated 280 (280-300); Potassium 3.5 mEq/L (3.5-4.5); Sodium 136 mEq/L (136-145); Total Protein 6.4 g/dL (6.0-8.3); eGFR For African Americans > 60 (> 60); eGFR For Non-African Americans > 60 (> 60)
[2016-11-27] MEDS: *HR* Enoxaparin 40 MG/0.4 ML SYRINGE SQ SCH (05:41)
[2016-11-27] MEDS: Pantoprazole 40 MG VIAL IVP SCH (07:52)
[2016-11-27] MEDS: Magnesium Oxide 400 MG TABLET PO SCH ×2 (07:52→20:07)
[2016-11-27] MEDS: Metoprolol XL (24 HR) Succ 25 MG TAB.ER.24H PO SCH (07:52)
[2016-11-27] MEDS: Nicotine 21 MG PATCH.TD24 TD SCH ×2 (07:52→08:10)
[2016-11-27] MEDS: *HR* OxyCODONE Immed Rel 5 MG TABLET PO PRN (11:44)
[2016-11-27] MEDS ORDERED: Magnesium Sulfate 2 GM in D5% in Water 100 ML IVPB ONE (12:44)
--- NOTE | 2016-11-27 16:38 | Internal Med Progress Note ---
Date of Encounter: 11/27/16 Time of Encounter: 16:36 - Assessment and plan (1) Acute alcoholic pancreatitis Current Visit: No Status: Acute Assessment and plan: Acute on chronic alcoholic pancreatitis Start normal saline with 10 mEq of potassium at 200 cc per hour, may decrease rate when she is less tachycardic and starts clear liquids Monitor lipase, may go back to NPO if pain gets worse Dilated as needed 11/27/2016 Acute on chronic alcoholic pancreatitis. Patient is comfortably lying in bed. Complains of occasional abdominal pain. We will continue nothing by mouth. Enzyme trending downwards. Qualifiers: Acute pancreatitis complication: no infection or necrosis Qualified Code(s) : K85.20 - Alcohol induced acute pancreatitis without necrosis or infection (2) Alcoholism Current Visit: No Status: Acute Assessment and plan: We will continue CIWA protocol (3) Tachycardia Current Visit: Yes Status: Acute Assessment and plan: Likely related to dehydration Increase IV fluids, may discontinue Cardizem drip once heart rate is better controlled Order an EKG 11/27/2016 Patient is in sinus rhythm. We will gradually taper the Cardizem drip. We will continue IV fluids. Close monitoring (4) Pancreatitis Current Visit: No Status: Acute Assessment and plan: Likely secondary to alcoholic etiology. Qualifiers: Chronicity: acute Pancreatitis type: unspecified pancreatitis type Acute pancreatitis complication: unspecified Qualified Code(s): K85.90 - Acute pancreatitis without necrosis or infection, unspecified - Subjective Interval history: 11/27/2016 Patient seen and examined. Chart reviewed. Patient complains of occasional abdominal pain. Patient denies chest pain, shortness of breath, vomiting and diarrhea. - Constitutional Vitals: Temp Pulse Resp BP Pulse Ox 97.9 F 108 18 111/82 97 11/27/16 15:42 11/27/16 15:42 11/27/16 15:42 11/27/16 15:42 11/27/16 16:02 General appearance: Present: A&O X 3, pleasant, obese - Head Head exam: Present: atraumatic, normocephalic - Eye Eye exam: Present: PERRL, conjuntiva pink, sclera anicteric Pupils: Present: PERRL - Neck Neck exam general surgery: Present: supple, trachea midline. Absent: lymphadenopathy - Respiratory Respiratory exam: Present: CTAB. Absent: accessory muscle use, rales, rhonchi, wheezes - Cardiovascular Cardiovascular exam: Present: RRR, +S1, +S2. Absent: diastolic murmur, gallop, rubs, systolic murmur - GI/Abdominal GI/Abdominal exam: Present: normal bowel sounds, soft, no peritoneal signs. Absent: distended, tenderness - Extremities Exam Extremities exam: Present: warm, radial pulses palpable and symetrical. Absent : calf tenderness, cyanotic, pedal edema - Neurological Exam Neurological exam: Present: CN II-XII intact, oriented X3, no focal deficits. Absent: pronater drift, facial droop, speech deficit - Skin Skin exam: Present: dry, intact Internal Medicine: Result - Labs CBC & Chem 7: 11/26/16 05:45 11/27/16 04:51 Labs: BMP 11/27/16 04:51 Sodium 136 Potassium 3.5 Chloride 104 Carbon Dioxide 23 BUN 3 L D Creatinine 0.48 L Glucose 124 H Calcium 7.7 L Liver Function 11/27/16 Range/Units 04:51 Total Bilirubin 0.9 (0.2-1.2) mg/dL AST 22 (5-34) Units/L ALT 9 (0-55) Units/L Alkaline Phosphatase 61 (38-126) Units/L Albumin 2.9 L D (3.5-5.0) g/dL - ABG Interpretation ABG results: PT/INR, D-dimer PT 12.9 Seconds (9.4-12.1) H 11/26/16 05:45 - VTE Documentation of Mechanical Device: Graduated compression elastic hosiery Consult Discharge Plan - Plan Referrals: NO,PCP [Primary Care Provider] -
--- NOTE | 2016-11-27 17:44 | Electrocardiograph Report ---
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
[2016-11-27] MEDS: Melatonin 3 MG TABLET PO SCH (20:07)
[2016-11-28] MEDS: *HR* HYDROmorphone (PF) 1 MG/ML SYRINGE IVP PRN ×9 (00:47→22:28)
[2016-11-28] MEDS: *HR* LORazepam 2 MG/ML VIAL IVP PRN ×3 (02:16→22:07)
[2016-11-28] MEDS: *HR* OxyCODONE Immed Rel 5 MG TABLET PO PRN (02:16)
[2016-11-28 04:11] LABS: Basophils % 0.6 %; Eosinophils # 0.2 K/mcL (0.0-0.6); Eosinophils % 3.3 %; Hematocrit 29.8 % (35.3-44.9); Immature Granulocytes % 0.8 % (0-4); Lymphocytes # 2.5 K/mcL (0.6-4.6); Lymphocytes % 37.2 %; Mean Corpuscular HGB Conc 33.2 g/dL (31.6-35.5); Mean Corpuscular Hemoglobin 33.3 pg (28.0-33.3); Mean Corpuscular Volume 100.3 fL (83.0-100.0); Mean Platelet Volume 9.3 fL (9.4-12.4); Monocytes # 0.6 K/mcL (0.0-1.3); Monocytes % 8.3 %; Neutrophils # 3.3 K/mcL (1.6-8.9); Platelet Count 115 K/mcL (140-400); Red Blood Count 2.97 M/mcL (3.82-4.97); Red Cell Distribution Width 12.5 % (11.5-14.5); Segmented Neutrophils % 49.8 %
[2016-11-28 04:16] LABS: Hemoglobin 9.9 g/dL (11.5-15.4)
[2016-11-28 04:35] LABS: Alanine Aminotransferase 8 Units/L (0-55); Albumin 2.6 g/dL (3.5-5.0); Albumin/Globulin Ratio 0.8 (1.1-2.2); Alkaline Phosphatase 53 Units/L (38-126); Aspartate Amino Transferase 20 Units/L (5-34); BUN/Creatinine Ratio 7 (6-26); Bilirubin,Total 0.6 mg/dL (0.2-1.2); Calcium 7.6 mg/dL (8.6-10.8); Carbon Dioxide 21 mEq/L (19-29); Chloride 109 mEq/L (98-109); Globulin 3.2 g/dL (2.4-3.5); Glucose 121 mg/dL (70-99); Osmolality,Calculated 280 (280-300); Potassium 3.3 mEq/L (3.5-4.5); Sodium 136 mEq/L (136-145); Total Protein 5.8 g/dL (6.0-8.3); eGFR For African Americans > 60 (> 60); eGFR For Non-African Americans > 60 (> 60)
[2016-11-28 04:37] LABS: Blood Urea Nitrogen 3 mg/dL (7-20)
[2016-11-28] MEDS: *HR* Enoxaparin 40 MG/0.4 ML SYRINGE SQ SCH (06:48)
[2016-11-28] MEDS: Metoprolol XL (24 HR) Succ 25 MG TAB.ER.24H PO SCH (09:02)
[2016-11-28] MEDS: Pantoprazole 40 MG VIAL IVP SCH (09:02)
[2016-11-28] MEDS: Magnesium Oxide 400 MG TABLET PO SCH ×2 (09:02→20:02)
[2016-11-28] MEDS: Nicotine 21 MG PATCH.TD24 TD SCH (09:03)
--- NOTE | 2016-11-28 09:03 | Electrocardiograph Report ---
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
[2016-11-28] MEDS: Thiamine (B-1) 100 MG TABLET PO SCH (09:05)
--- NOTE | 2016-11-28 11:58 | Electrocardiograph Report ---
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
--- NOTE | 2016-11-28 18:25 | Internal Med Progress Note ---
Date of Encounter: 11/28/16 Time of Encounter: 18:24 - Assessment and plan (1) Acute alcoholic pancreatitis Current Visit: No Status: Acute Assessment and plan: Acute on chronic alcoholic pancreatitis Start normal saline with 10 mEq of potassium at 200 cc per hour, may decrease rate when she is less tachycardic and starts clear liquids Monitor lipase, may go back to NPO if pain gets worse Dilated as needed 11/27/2016 Acute on chronic alcoholic pancreatitis. Patient is comfortably lying in bed. Complains of occasional abdominal pain. We will continue nothing by mouth. Enzyme trending downwards. 11/28/2016 Acute on chronic alcoholic pancreatitis Patient feels much better as compared to yesterday. Denies any abdominal pain. We will start clear liquid for her. Qualifiers: Acute pancreatitis complication: no infection or necrosis Qualified Code(s) : K85.20 - Alcohol induced acute pancreatitis without necrosis or infection (2) Alcoholism Current Visit: No Status: Acute Assessment and plan: We will continue CIWA protocol (3) Tachycardia Current Visit: Yes Status: Acute Assessment and plan: Likely related to dehydration Increase IV fluids, may discontinue Cardizem drip once heart rate is better controlled Order an EKG 11/27/2016 Patient is in sinus rhythm. We will gradually taper the Cardizem drip. We will continue IV fluids. Close monitoring (4) Pancreatitis Current Visit: No Status: Acute Assessment and plan: Likely secondary to alcoholic etiology. Qualifiers: Chronicity: acute Pancreatitis type: unspecified pancreatitis type Acute pancreatitis complication: unspecified Qualified Code(s): K85.90 - Acute pancreatitis without necrosis or infection, unspecified - Subjective Interval history: 11/27/2016 Patient seen and examined. Chart reviewed. Patient complains of occasional abdominal pain. Patient denies chest pain, shortness of breath, vomiting and diarrhea. 11/28/2016 Seen and examined Chart reviewed. Denies any chest pain, short of breath, abdominal pain, diarrhea - Constitutional Vitals: Temp Pulse Resp BP Pulse Ox 97.9 F 104 16 146/109 96 11/28/16 17:56 11/28/16 17:56 11/28/16 17:56 11/28/16 17:56 11/28/16 17:56 General appearance: Present: A&O X 3, pleasant, obese - Head Head exam: Present: atraumatic, normocephalic - Eye Eye exam: Present: PERRL, conjuntiva pink, sclera anicteric Pupils: Present: PERRL - Neck Neck exam general surgery: Present: supple, trachea midline. Absent: lymphadenopathy - Respiratory Respiratory exam: Present: CTAB. Absent: accessory muscle use, rales, rhonchi, wheezes - Cardiovascular Cardiovascular exam: Present: RRR, +S1, +S2. Absent: diastolic murmur, gallop, rubs, systolic murmur - GI/Abdominal GI/Abdominal exam: Present: normal bowel sounds, soft, no peritoneal signs. Absent: distended, tenderness - Extremities Exam Extremities exam: Present: warm, radial pulses palpable and symetrical. Absent : calf tenderness, cyanotic, pedal edema - Neurological Exam Neurological exam: Present: CN II-XII intact, oriented X3, no focal deficits. Absent: pronater drift, facial droop, speech deficit - Skin Skin exam: Present: dry, intact Internal Medicine: Result - Labs CBC & Chem 7: 11/28/16 03:39 11/28/16 03:39 Labs: Short CBC 11/28/16 Range/Units 03:39 WBC 6.6 (4.3-11.1) K/mcL Hgb 9.9 L D (11.5-15.4) g/dL Hct 29.8 L (35.3-44.9) % Plt Count 115 L (140-400) K/mcL Neutrophils # 3.3 (1.6-8.9) K/mcL BMP 11/28/16 03:39 Sodium 136 Potassium 3.3 L Chloride 109 Carbon Dioxide 21 BUN 3 L Creatinine 0.46 L Glucose 121 H Calcium 7.6 L Liver Function 11/28/16 Range/Units 03:39 Total Bilirubin 0.6 (0.2-1.2) mg/dL AST 20 (5-34) Units/L ALT 8 (0-55) Units/L Alkaline Phosphatase 53 (38-126) Units/L Albumin 2.6 L (3.5-5.0) g/dL - ABG Interpretation ABG results: PT/INR, D-dimer PT 12.9 Seconds (9.4-12.1) H 11/26/16 05:45 - VTE Documentation of Mechanical Device: Graduated compression elastic hosiery Consult Discharge Plan - Plan Referrals: [facility], [facility]PER [Advanced Practice Nurse] -
[2016-11-28] MEDS: Promethazine 12.5 MG in 0.9 % Sodium Chloride 50 ML IVPB PRN (18:50)
[2016-11-28] MEDS: Melatonin 3 MG TABLET PO SCH (20:02)
[2016-11-28] MEDS ORDERED: *HR* Metoprolol 5 MG/5 ML VIAL IVP ONE (20:39)
[2016-11-29] MEDS: *HR* HYDROmorphone (PF) 1 MG/ML SYRINGE IVP PRN ×4 (01:10→09:52)
[2016-11-29 04:27] LABS: Basophils % 0.5 %; Eosinophils # 0.2 K/mcL (0.0-0.6); Hematocrit 30.9 % (35.3-44.9); Hemoglobin 10.2 g/dL (11.5-15.4); Immature Granulocytes % 0.9 % (0-4); Lymphocytes # 2.4 K/mcL (0.6-4.6); Mean Platelet Volume 9.3 fL (9.4-12.4); Monocytes # 0.6 K/mcL (0.0-1.3); Monocytes % 9.7 %; Neutrophils # 3.1 K/mcL (1.6-8.9); Platelet Count 141 K/mcL (140-400); Red Blood Count 3.09 M/mcL (3.82-4.97); Red Cell Distribution Width 12.5 % (11.5-14.5); Segmented Neutrophils % 47.9 %
[2016-11-29 04:53] LABS: Alanine Aminotransferase 6 Units/L (0-55); Albumin 2.8 g/dL (3.5-5.0); Albumin/Globulin Ratio 0.8 (1.1-2.2); Alkaline Phosphatase 70 Units/L (38-126); Aspartate Amino Transferase 22 Units/L (5-34); BUN/Creatinine Ratio 6 (6-26); Bilirubin,Total 0.4 mg/dL (0.2-1.2); Blood Urea Nitrogen 3 mg/dL (7-20); Calcium 8.3 mg/dL (8.6-10.8); Carbon Dioxide 23 mEq/L (19-29); Chloride 108 mEq/L (98-109); Globulin 3.7 g/dL (2.4-3.5); Glucose 101 mg/dL (70-99); Osmolality,Calculated 283 (280-300); Potassium 3.5 mEq/L (3.5-4.5); Sodium 138 mEq/L (136-145); Total Protein 6.5 g/dL (6.0-8.3); eGFR For African Americans > 60 (> 60); eGFR For Non-African Americans > 60 (> 60)
[2016-11-29] MEDS: *HR* Enoxaparin 40 MG/0.4 ML SYRINGE SQ SCH (06:12)
[2016-11-29 08:46] VITALS: BP 140/109
[2016-11-29] MEDS: Thiamine (B-1) 100 MG TABLET PO SCH (09:54)
[2016-11-29] MEDS: Magnesium Oxide 400 MG TABLET PO SCH (09:54)
[2016-11-29] MEDS: Pantoprazole 40 MG VIAL IVP SCH (09:54)
[2016-11-29] MEDS: Metoprolol XL (24 HR) Succ 25 MG TAB.ER.24H PO SCH (09:54)
[2016-11-29] MEDS: Nicotine 21 MG PATCH.TD24 TD SCH (10:40)
[2016-11-29] MEDS: *HR* OxyCODONE Immed Rel 5 MG TABLET PO PRN (12:17)
--- NOTE | 2016-12-05 18:16 | Event Note ---
Date of Encounter: 12/05/16 Time of Encounter: 18:14 This patient signed out AMA. Patient is aware of the risk, benefit, advantages, disadvantages and alternative options. She did not signed out in front of me. please treat this event note a discharge summary.
--- NOTE | 2016-12-13 05:15 | Discharge Summary ---
Date of Encounter: 12/13/16 Time of Encounter: 05:12 - Discharge Diagnosis (1) Acute alcoholic pancreatitis Priority: Primary Status: Acute Qualifiers: Acute pancreatitis complication: no infection or necrosis Qualified Code(s) : K85.20 - Alcohol induced acute pancreatitis without necrosis or infection (2) Alcoholism Priority: Primary Status: Acute (3) Tachycardia Priority: Primary Status: Acute (4) Pancreatitis Priority: Secondary Status: Acute Qualifiers: Chronicity: acute Pancreatitis type: unspecified pancreatitis type Acute pancreatitis complication: unspecified Qualified Code(s): K85.90 - Acute pancreatitis without necrosis or infection, unspecified - Discharge Medications Home Medications: No Known Home Drugs 11/25/16 [History] Allergies/Adverse Reactions: Allergies No Known Allergies Allergy (Verified 11/25/16 16:01) Date of admission: 11/25/16 18:06 Primary care physician: PCP NO Consults: 11/25/16 18:34 Consult to Head Of Sales Promotion [CONS] Routine Reason for SW Consult: Patient still drinking despite chronic pancreatitis. Reportedly drinks 2-3 days per week. Discharging clinician: Elijah Prajapati - Patient Status Disposition: Left Against Medical Advice Condition: Fair - Discharge Instructions Instructions: Pancreatitis (DC), Alcohol Dependence (GEN) Follow Up With: Mason Cleaning CNP [Advanced Practice Nurse] - 12/08/16 2:00 pm () Interval History: Ms. Anderson is a 36 year old female with history of chronic pancreatitis and hypertension and anxiety presents to the emergency room with complaints of abdominal pain, nausea, and vomiting. Patient reports yesterday she had a poor appetite, and abdominal pain started last evening. She describes it as sharp, constant, and worsening over time. It was somewhat relieved by pain medication given in the emergency department.She reports some lightheadedness, some palpitations. She denies any headache, chest pain, shortness of breath, or cough. She reports chills and sweats. Patient reports she drank alcohol on Monday, and knows that this is what exacerbates her pancreatitis. Evaluation emergency department revealed mildly elevated white blood cell count of 12.9. Elevated lipase of 245. Elevated AST of 57. She is tachycardic with heart rate in the 120s to 130s. Blood pressure is also elevated. She was mildly hypokalemic with potassium of 3.3. On exam, patient is alert and oriented, in no acute distress. Heart has tachycardic but regular rhythm, lungs are clear bilaterally to auscultation. Abdomen is tender to palpation in epigastric and right upper quadrant. Hospital course: patient was hospitalized for further management. she was started on IV fluids along with pain medications. serial abdominal examinations performed and repeat seral labs were done. she was kept NPO and monitered closely. she responded clinically as well as biochemically ( trending down pancreatic enzymes). patient was started on clear liquid diet. her pain was controlled with IV and oral medications. her IV medications tapered down. she was not completely recovered yet but she decided to leave hospital. This patient signed out AMA. Patient is aware of the risk, benefit, advantages, disadvantages and alternative options. - Time Spent with Patient Total time spent providing and/or coordinating discharge services: - Constitutional Vitals: Temp Pulse Resp BP Pulse Ox 98.3 F 87 16 140/109 95 11/29/16 08:44 11/29/16 08:44 11/29/16 08:44 11/29/16 08:44 11/29/16 08:44 General appearance: Present: A&O X 3, pleasant, obese - VTE Documentation of Mechanical Device: Graduated compression elastic hosiery
== END 2016-11-29 14:35 | disposition left against medical advice (07) | DRG 282 ==
LOC: 3BNU 15:56 → EMEROO 15:56 → SUATTDRO 18:06 → 3BNU 19:36 → 2NENU 11-26 00:35
PROVIDERS: ADMIT Internal Medicine; ATTEND Internal Medicine

== ENCOUNTER 2016-12-20 22:16 | Inpatient (IN) ==
[2016-12-20 23:25] LABS: Bilirubin,Urine Small (Negative); Blood,Urine Negative (Negative); Clarity,Urine Clear (Clear); Color,Urine Yellow (Yellow); Glucose,Urine (UA) >=1000 mg/dL (Normal); Ketones,Urine 40 mg/dL (Negative); Leukocyte Esterase,Urine Negative (Negative); Nitrite,Urine Negative (Negative); PH,Urine 5.5 pH Units (5.0-8.0); Protein,Urine 100 mg/dL (Neg-Trace); Specific Gravity,Urine > 1.030 (1.010-1.025); Urobilinogen,Urine Normal (Normal)
[2016-12-20 23:28] LABS: Bacteria,Urine Few per hpf (None-Few); Hyaline Casts,Urine None Seen per lpf (None-Few); Squamous Epithelial Cell,Urine Many per lpf (None-Few)
[2016-12-20 23:41] LABS: RBC,Urine 0-3 per hpf (0-3)
[2016-12-20] MEDS ORDERED: 0.9 % Sodium Chloride 1,000 ML IVC ONE (23:51)
[2016-12-20] MEDS ORDERED: Ondansetron 4 MG/2 ML VIAL IVP ONE (23:51)
[2016-12-20] MEDS ORDERED: *HR* HYDROmorphone (PF) 1 MG/ML SYRINGE IVP ONE (23:52)
[2016-12-21 00:05] LABS: Alanine Aminotransferase 41 Units/L (0-55); Albumin 4.4 g/dL (3.5-5.0); Albumin/Globulin Ratio 0.9 (1.1-2.2); Alkaline Phosphatase 106 Units/L (38-126); Amylase 29 Units/L (25-125); Aspartate Amino Transferase 53 Units/L (5-34); BUN/Creatinine Ratio 15 (6-26); Bilirubin,Direct 0.7 mg/dL (0.0-0.5); Bilirubin,Indirect 0.7 mg/dL (0.0-1.2); Bilirubin,Total 1.4 mg/dL (0.2-1.2); Blood Urea Nitrogen 15 mg/dL (7-20); Carbon Dioxide 22 mEq/L (19-29); Chloride 88 mEq/L (98-109); Globulin 4.7 g/dL (2.4-3.5); Glucose 445 mg/dL (70-99); Lipase 120 Units/L (8-78); Osmolality,Calculated 294 (280-300); Potassium 3.8 mEq/L (3.5-4.5); Sodium 132 mEq/L (136-145); Total Protein 9.1 g/dL (6.0-8.3); eGFR For African Americans > 60 (> 60); eGFR For Non-African Americans > 60 (> 60)
[2016-12-21 00:06] LABS: Basophils # 0.1 K/mcL (0.0-0.2); Basophils % 0.6 %; Eosinophils % 0.2 %; Hematocrit 45.1 % (35.3-44.9); Hemoglobin 15.8 g/dL (11.5-15.4); Immature Granulocytes % 0.7 % (0-4); Immature Platelets 6.1 % (1.1-6.1); Lymphocytes # 1.5 K/mcL (0.6-4.6); Mean Corpuscular Hemoglobin 32.9 pg (28.0-33.3); Mean Platelet Volume 10.3 fL (9.4-12.4); Monocytes # 1.4 K/mcL (0.0-1.3); Neutrophils # 7.7 K/mcL (1.6-8.9); Platelet Count 172 K/mcL (140-400); Red Cell Distribution Width 12.8 % (11.5-14.5); Segmented Neutrophils % 71.5 %
[2016-12-21] MEDS ORDERED: *HR* HYDROmorphone (PF) 1 MG/ML SYRINGE IVP ONE ×2 (00:32→07:42)
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
[2016-12-21 01:38] LABS: VBG HCO3 24.3 mEq/L (21-27); VBG PH 7.38 pH Units (7.32-7.42)
[2016-12-21] MEDS ORDERED: Ondansetron 4 MG/2 ML VIAL IVP ONE ×2 (01:51→04:57)
[2016-12-21] MEDS ORDERED: *HR* Morphine 2 MG/ML SYRINGE IVP ONE ×2 (01:57→04:57)
[2016-12-21] MEDS ORDERED: *HR* Dextrose 50 % in Water (Syg) 50 ML SYRINGE IVP PRN ×2 (03:08→08:14)
[2016-12-21] MEDS ORDERED: 0.9 % Sodium Chloride 1,000 ML IVC ONE (03:08)
[2016-12-21] MEDS ORDERED: Insulin Human Regular 100 UNIT in 0.9 % Sodium Chloride 100 ML IVC SCH (03:15)
[2016-12-21] MEDS ORDERED: Pantoprazole 40 MG VIAL IVP ONE (04:57)
[2016-12-21] MEDS ORDERED: D5% in 0.45% NACL 1,000 ML IVC SCH (06:25)
--- NOTE | 2016-12-21 07:16 | Emergency Department Note ---
Disposition Clinical Impression: DKA (diabetic ketoacidoses) Qualifiers: Diabetes mellitus type: due to underlying condition Diabetes mellitus complication detail: without coma Qualified Code(s): E08.10 - Diabetes mellitus due to underlying condition with ketoacidosis without coma Pancreatitis Qualifiers: Chronicity: acute Pancreatitis type: alcohol induced Acute pancreatitis complication: unspecified Qualified Code(s): K85.20 - Alcohol induced acute pancreatitis without necrosis or infection Disposition: Admitted As Inpatient Referrals: NO,PCP [Primary Care Provider] - Forms: ED Satisfaction Letter, Work/School Release General Adult HPI - General Chief complaint: ED Abdominal Pain Stated complaint: "Thinks Her B/P is High/Pancreatic Problems" Time Seen by Provider: 12/20/16 23:11 Source: patient Limitations: no limitations Nursing Notes Reviewed: Yes Vital Signs Reviewed: Yes - History of Present Illness Pain Scale: 7 - Related Data Home Medications Medication Instructions Recorded Confirmed Aspirin/Sod Bicarb/Citric Acid 1 tab PO DAILY PRN 12/21/16 12/21/16 [[place] Original Tab Eff] FLUoxetine HCl [PROzac] 20 mg PO DAILY 12/21/16 12/21/16 Lisinopril/Hydrochlorothiazide 1 tab PO DAILY 12/21/16 12/21/16 [Zestoretic 10-12.5 mg Tablet] Naproxen Sodium [Aleve] 220 mg PO BID PRN 12/21/16 12/21/16 Pantoprazole Sodium [Protonix] 40 mg PO DAILY 12/21/16 12/21/16 Allergies Allergy/AdvReac Type Severity Reaction Status Date / Time No Known Allergies Allergy Verified 11/25/16 16:01 Past Medical History - Past Medical History Medical history: Reports: arthritis, cardiomyopathy, GERD, hypertension, kidney stones, liver disease, migraine, renal disease, other Surgical history: Reports: non-contributory, other Psychiatric history: Reports: anxiety, depression, other - Social History Smoking Status: Current every day smoker Smokeless Tobacco Status: No Alcohol use: Reports: heavy, recent Drug use: Reports: none, unknown Physical Exam - General Limitations: no limitations General appearance: alert Course Vital Signs Temperature 98 F 12/20/16 22:46 Pulse Rate 88 12/20/16 22:46 Respiratory Rate 18 12/20/16 22:46 Blood Pressure 178/125 12/20/16 22:46 O2 Sat by Pulse Oximetry 96 12/20/16 22:46 Temperature 98 F 12/20/16 22:46 Pulse Rate 114 12/21/16 05:55 Respiratory Rate 16 12/21/16 05:55 Blood Pressure 169/119 12/21/16 05:55 O2 Sat by Pulse Oximetry 98 12/21/16 05:55 Oxygen Delivery Oxygen Delivery Room Air Medical Decision Making - MDM Narrative Medical decision making narrative: I examined this patient and my medical decision-making was reviewed with the SALES SERVICE ROUTE MANAGER/PA/Advanced Practice Nurse/Resident Physician. I agree with the documented findings, disposition and treatment plan as described except to the extent set forth below. Patient was a sign out from the evening ER physician Dr. Jones. Dr. Ordaz and I assume the care of the patient this morning. Dr. 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 Patient has long history of pancreatitis and came in with exacerbation. Found her sugar to be elevated and was placed on insulin drip. She has been admitted but there are no beds in the hospital currently for an insulin drip. Her sugars are down to 130 here to see if we can bring her off the insulin drip per protocols. She is actually thirsty does not want anything to eat. We will see how she tolerates by mouth liquids. See if we can repeat a Chem-7 to see what our acid-base status is and then reassess. She will still need admission. Depending on her glucose - Lab Data Result diagrams: 12/20/16 23:58 12/20/16 23:12 Lab Results 12/20/16 12/20/16 12/20/16 Range/Units 23:00 23:00 23:12 WBC (4.3-11.1) K/mcL RBC (3.82-4.97) M/mcL Hgb (11.5-15.4) g/dL Hct (35.3-44.9) % MCV (83.0-100.0) fL MCH (28.0-33.3) pg MCHC (31.6-35.5) g/dL RDW (11.5-14.5) % Plt Count (140-400) K/mcL MPV (9.4-12.4) fL Immature Gran % (0-4) % Seg Neutrophils % % Lymphocytes % % Monocytes % % Eosinophils % % Basophils % % Neutrophils # (1.6-8.9) K/mcL Lymphocytes # (0.6-4.6) K/mcL Monocytes # (0.0-1.3) K/mcL Eosinophils # (0.0-0.6) K/mcL Basophils # (0.0-0.2) K/mcL Immature Plt Fraction (1.1-6.1) % VBG pH (7.32-7.42) pH Units VBG pCO2 (41-51) mmHg VBG pO2 (25-40) mmHg VBG HCO3 (21-27) mEq/L Sodium 132 L (136-145) mEq/L Potassium 3.8 (3.5-4.5) mEq/L Chloride 88 L (98-109) mEq/L Carbon Dioxide 22 (19-29) mEq/L BUN 15 (7-20) mg/dL Creatinine 1.01 (0.57-1.11) mg/dL Est GFR ( Amer) > 60 (> 60) Est GFR (Non-Af Amer) > 60 (> 60) BUN/Creatinine Ratio 15 (6-26) Glucose 445 H (70-99) mg/dL POC Glucose (58-89) Calculated Osmolality 294 (280-300) Calcium 10.0 (8.6-10.8) mg/dL Total Bilirubin 1.4 H (0.2-1.2) mg/dL Direct Bilirubin 0.7 H (0.0-0.5) mg/dL Indirect Bilirubin 0.7 (0.0-1.2) mg/dL AST 53 H (5-34) Units/L ALT 41 (0-55) Units/L Alkaline Phosphatase 106 (38-126) Units/L Serum Total Protein 9.1 H (6.0-8.3) g/dL Albumin 4.4 (3.5-5.0) g/dL Globulin 4.7 H (2.4-3.5) g/dL Albumin/Globulin Ratio 0.9 L (1.1-2.2) Amylase 29 (25-125) Units/L Lipase 120 H (8-78) Units/L Beta-Hydroxybutyric Acd (0.02-0.27) mmol/L Urine Color Yellow (Yellow) Urine Clarity Clear (Clear) Urine pH 5.5 (5.0-8.0) pH Units Ur Specific [place] > 1.030 H (1.010-1.025) Urine Protein 100 H (Neg-Trace) mg/dL Urine Glucose (UA) >=1000 H (Normal) mg/dL Urine Ketones 40 H (Negative) mg/dL Urine Blood Negative (Negative) Urine Nitrite Negative (Negative) Urine Bilirubin Small H (Negative) Urine Urobilinogen Normal (Normal) mg/dL Ur Leukocyte Esterase Negative (Negative) Urine Microscopic RBC 0-3 (0-3) per hpf Urine Microscopic WBC 3-5 H (0-3) per hpf Ur Squamous Epith Cells Many H (None-Few) per lpf Urine Bacteria Few (None-Few) per hpf Hyaline Casts None Seen (None-Few) per lpf Ur Culture Indicated? NO (NO) Urine Test Negative (Negative) Ethyl Alcohol (0-10) mg/dL 12/20/16 12/20/16 12/21/16 Range/Units 23:12 23:58 00:04 WBC 10.7 (4.3-11.1) K/mcL RBC 4.80 (3.82-4.97) M/mcL Hgb 15.8 H (11.5-15.4) g/dL Hct 45.1 H (35.3-44.9) % MCV 94.0 D (83.0-100.0) fL MCH 32.9 (28.0-33.3) pg MCHC 35.0 (31.6-35.5) g/dL RDW 12.8 (11.5-14.5) % Plt Count 172 (140-400) K/mcL MPV 10.3 (9.4-12.4) fL Immature Gran % 0.7 (0-4) % Seg Neutrophils % 71.5 % Lymphocytes % 14.0 % Monocytes % 13.0 % Eosinophils % 0.2 % Basophils % 0.6 % Neutrophils # 7.7 (1.6-8.9) K/mcL Lymphocytes # 1.5 (0.6-4.6) K/mcL Monocytes # 1.4 H (0.0-1.3) K/mcL Eosinophils # 0.0 (0.0-0.6) K/mcL Basophils # 0.1 (0.0-0.2) K/mcL Immature Plt Fraction 6.1 (1.1-6.1) % VBG pH (7.32-7.42) pH Units VBG pCO2 (41-51) mmHg VBG pO2 (25-40) mmHg VBG HCO3 (21-27) mEq/L Sodium (136-145) mEq/L Potassium (3.5-4.5) mEq/L Chloride (98-109) mEq/L Carbon Dioxide (19-29) mEq/L BUN (7-20) mg/dL Creatinine (0.57-1.11) mg/dL Est GFR ( Amer) (> 60) Est GFR (Non-Af Amer) (> 60) BUN/Creatinine Ratio (6-26) Glucose (70-99) mg/dL POC Glucose (58-89) Calculated Osmolality (280-300) Calcium (8.6-10.8) mg/dL Total Bilirubin (0.2-1.2) mg/dL Direct Bilirubin (0.0-0.5) mg/dL Indirect Bilirubin (0.0-1.2) mg/dL AST (5-34) Units/L ALT (0-55) Units/L Alkaline Phosphatase (38-126) Units/L Serum Total Protein (6.0-8.3) g/dL Albumin (3.5-5.0) g/dL Globulin (2.4-3.5) g/dL Albumin/Globulin Ratio (1.1-2.2) Amylase (25-125) Units/L Lipase (8-78) Units/L Beta-Hydroxybutyric Acd > 2.00 H (0.02-0.27) mmol/L Urine Color (Yellow) Urine Clarity (Clear) Urine pH (5.0-8.0) pH Units Ur Specific [place] (1.010-1.025) Urine Protein (Neg-Trace) mg/dL Urine Glucose (UA) (Normal) mg/dL Urine Ketones (Negative) mg/dL Urine Blood (Negative) Urine Nitrite (Negative) Urine Bilirubin (Negative) Urine Urobilinogen (Normal) mg/dL Ur Leukocyte Esterase (Negative) Urine Microscopic RBC (0-3) per hpf Urine Microscopic WBC (0-3) per hpf Ur Squamous Epith Cells (None-Few) per lpf Urine Bacteria (None-Few) per hpf Hyaline Casts (None-Few) per lpf Ur Culture Indicated? (NO) Urine Test (Negative) Ethyl Alcohol < 10 (0-10) mg/dL 12/21/16 12/21/16 12/21/16 Range/Units 01:27 03:32 04:23 WBC (4.3-11.1) K/mcL RBC (3.82-4.97) M/mcL Hgb (11.5-15.4) g/dL Hct (35.3-44.9) % MCV (83.0-100.0) fL MCH (28.0-33.3) pg MCHC (31.6-35.5) g/dL RDW (11.5-14.5) % Plt Count (140-400) K/mcL MPV (9.4-12.4) fL Immature Gran % (0-4) % Seg Neutrophils % % Lymphocytes % % Monocytes % % Eosinophils % % Basophils % % Neutrophils # (1.6-8.9) K/mcL Lymphocytes # (0.6-4.6) K/mcL Monocytes # (0.0-1.3) K/mcL Eosinophils # (0.0-0.6) K/mcL Basophils # (0.0-0.2) K/mcL Immature Plt Fraction (1.1-6.1) % VBG pH 7.38 (7.32-7.42) pH Units VBG pCO2 41 (41-51) mmHg VBG pO2 84 H (25-40) mmHg VBG HCO3 24.3 (21-27) mEq/L Sodium (136-145) mEq/L Potassium (3.5-4.5) mEq/L Chloride (98-109) mEq/L Carbon Dioxide (19-29) mEq/L BUN (7-20) mg/dL Creatinine (0.57-1.11) mg/dL Est GFR ( Amer) (> 60) Est GFR (Non-Af Amer) (> 60) BUN/Creatinine Ratio (6-26) Glucose (70-99) mg/dL POC Glucose 379 H 335 H (58-89) Calculated Osmolality (280-300) Calcium (8.6-10.8) mg/dL Total Bilirubin (0.2-1.2) mg/dL Direct Bilirubin (0.0-0.5) mg/dL Indirect Bilirubin (0.0-1.2) mg/dL AST (5-34) Units/L ALT (0-55) Units/L Alkaline Phosphatase (38-126) Units/L Serum Total Protein (6.0-8.3) g/dL Albumin (3.5-5.0) g/dL Globulin (2.4-3.5) g/dL Albumin/Globulin Ratio (1.1-2.2) Amylase (25-125) Units/L Lipase (8-78) Units/L Beta-Hydroxybutyric Acd (0.02-0.27) mmol/L Urine Color (Yellow) Urine Clarity (Clear) Urine pH (5.0-8.0) pH Units Ur Specific [place] (1.010-1.025) Urine Protein (Neg-Trace) mg/dL Urine Glucose (UA) (Normal) mg/dL Urine Ketones (Negative) mg/dL Urine Blood (Negative) Urine Nitrite (Negative) Urine Bilirubin (Negative) Urine Urobilinogen (Normal) mg/dL Ur Leukocyte Esterase (Negative) Urine Microscopic RBC (0-3) per hpf Urine Microscopic WBC (0-3) per hpf Ur Squamous Epith Cells (None-Few) per lpf Urine Bacteria (None-Few) per hpf Hyaline Casts (None-Few) per lpf Ur Culture Indicated? (NO) Urine Test (Negative) Ethyl Alcohol (0-10) mg/dL 12/21/16 12/21/16 12/21/16 Range/Units 05:22 06:24 07:06 WBC (4.3-11.1) K/mcL RBC (3.82-4.97) M/mcL Hgb (11.5-15.4) g/dL Hct (35.3-44.9) % MCV (83.0-100.0) fL MCH (28.0-33.3) pg MCHC (31.6-35.5) g/dL RDW (11.5-14.5) % Plt Count (140-400) K/mcL MPV (9.4-12.4) fL Immature Gran % (0-4) % Seg Neutrophils % % Lymphocytes % % Monocytes % % Eosinophils % % Basophils % % Neutrophils # (1.6-8.9) K/mcL Lymphocytes # (0.6-4.6) K/mcL Monocytes # (0.0-1.3) K/mcL Eosinophils # (0.0-0.6) K/mcL Basophils # (0.0-0.2) K/mcL Immature Plt Fraction (1.1-6.1) % VBG pH (7.32-7.42) pH Units VBG pCO2 (41-51) mmHg VBG pO2 (25-40) mmHg VBG HCO3 (21-27) mEq/L Sodium (136-145) mEq/L Potassium (3.5-4.5) mEq/L Chloride (98-109) mEq/L Carbon Dioxide (19-29) mEq/L BUN (7-20) mg/dL Creatinine (0.57-1.11) mg/dL Est GFR ( Amer) (> 60) Est GFR (Non-Af Amer) (> 60) BUN/Creatinine Ratio (6-26) Glucose (70-99) mg/dL POC Glucose 227 H 141 H 134 H (58-89) Calculated Osmolality (280-300) Calcium (8.6-10.8) mg/dL Total Bilirubin (0.2-1.2) mg/dL Direct Bilirubin (0.0-0.5) mg/dL Indirect Bilirubin (0.0-1.2) mg/dL AST (5-34) Units/L ALT (0-55) Units/L Alkaline Phosphatase (38-126) Units/L Serum Total Protein (6.0-8.3) g/dL Albumin (3.5-5.0) g/dL Globulin (2.4-3.5) g/dL Albumin/Globulin Ratio (1.1-2.2) Amylase (25-125) Units/L Lipase (8-78) Units/L Beta-Hydroxybutyric Acd (0.02-0.27) mmol/L Urine Color (Yellow) Urine Clarity (Clear) Urine pH (5.0-8.0) pH Units Ur Specific [place] (1.010-1.025) Urine Protein (Neg-Trace) mg/dL Urine Glucose (UA) (Normal) mg/dL Urine Ketones (Negative) mg/dL Urine Blood (Negative) Urine Nitrite (Negative) Urine Bilirubin (Negative) Urine Urobilinogen (Normal) mg/dL Ur Leukocyte Esterase (Negative) Urine Microscopic RBC (0-3) per hpf Urine Microscopic WBC (0-3) per hpf Ur Squamous Epith Cells (None-Few) per lpf Urine Bacteria (None-Few) per hpf Hyaline Casts (None-Few) per lpf Ur Culture Indicated? (NO) Urine Test (Negative) Ethyl Alcohol (0-10) mg/dL
--- NOTE | 2016-12-21 07:24 | Emergency Department Note ---
START Narrative - START START: Patient taken over at signout from Dr. Oropeza and Dr. Jones. Patient has been admitted for DKA but has not made it to the floor secondary to bed availability. Upon evaluation the patient is in no acute distress. Patient asking for fluids. Patient's blood sugars have decreased to 140. Inpatient protocols will be obtained and she will be taken off her insulin drip if possible.
[2016-12-21] MEDS: D5% in 0.45% NACL w KCl 10 MEQ/1,000 ML MLS IVC SCH ×2 (07:37→16:13)
[2016-12-21 07:47] LABS: Beta-Hydroxybutyric Acid 0.39 mmol/L (0.02-0.27)
[2016-12-21 07:58] LABS: BUN/Creatinine Ratio 21 (6-26); Blood Urea Nitrogen 17 mg/dL (7-20); Calcium 9.1 mg/dL (8.6-10.8); Carbon Dioxide 28 mEq/L (19-29); Chloride 95 mEq/L (98-109); Glucose 121 mg/dL (70-99); Osmolality,Calculated 285 (280-300); Potassium 3.4 mEq/L (3.5-4.5); Sodium 136 mEq/L (136-145); eGFR For African Americans > 60 (> 60); eGFR For Non-African Americans > 60 (> 60)
[2016-12-21 08:13] LABS: Hematocrit 41.2 % (35.3-44.9); Hemoglobin 14.3 g/dL (11.5-15.4); Mean Corpuscular HGB Conc 34.7 g/dL (31.6-35.5); Mean Corpuscular Hemoglobin 32.7 pg (28.0-33.3); Mean Corpuscular Volume 94.3 fL (83.0-100.0); Mean Platelet Volume 10.5 fL (9.4-12.4); Platelet Count 154 K/mcL (140-400); Red Blood Count 4.37 M/mcL (3.82-4.97); Red Cell Distribution Width 12.7 % (11.5-14.5)
[2016-12-21] MEDS ORDERED: D5% in Water 1,000 ML IVC PRN (08:14)
[2016-12-21] MEDS ORDERED: Dextrose Gel 15 GM PO PRN ×2 (08:14)
[2016-12-21] MEDS ORDERED: Acetaminophen 325 MG TABLET PO PRN (08:17)
[2016-12-21] MEDS ORDERED: Naloxone 0.4 MG/ML INJ IVP PRN (08:17)
[2016-12-21] MEDS ORDERED: *HR* HYDROmorphone (PF) 1 MG/ML SYRINGE IVP PRN ×2 (08:17→12:44)
[2016-12-21] MEDS ORDERED: *HR* LORazepam 2 MG/ML VIAL IVP PRN ×3 (08:20)
--- NOTE | 2016-12-21 08:25 | Internal Med History&Physical ---
Date of Encounter: 12/21/16 Time of Encounter: 08:23 Assessment and Plan (1) DKA (diabetic ketoacidoses) Current visit: Yes Status: Acute Likely triggered by acute on chronic pancreatitis Order hemoglobin A1c Start subcutaneous insulin Levemir 5 units as the patient is going to be nothing by mouth Insulin sliding scale every 6 hours and discontinue insulin drip as the gap has closed Protonix for GI prophylaxis and subcutaneous heparin for DVT prophylaxis. The patient will be admitted as inpatient, full code. Time spent on this admission 45 minutes. Might need insulin permanently Qualifiers: Diabetes mellitus type: due to underlying condition Diabetes mellitus complication detail: without coma Qualified Code(s): E08.10 - Diabetes mellitus due to underlying condition with ketoacidosis without coma (2) Acute alcoholic pancreatitis Current visit: No Status: Acute Acute on chronic alcoholic pancreatitis Nothing by mouth, IV fluids, Dilaudid as needed May advance to clear liquids if better in the morning Qualifiers: Acute pancreatitis complication: no infection or necrosis Qualified Code(s) : K85.20 - Alcohol induced acute pancreatitis without necrosis or infection (3) Hypokalemia Current visit: No Status: Acute Replete (4) Alcohol dependence Current visit: No Status: Chronic Ativan per CIWA scale Qualifiers: Substance use status: uncomplicated Qualified Code(s): F10.20 - Alcohol dependence, uncomplicated (5) Hypertension Current visit: No Status: Acute Hydralazine as needed Hold lisinopril and hydrochlorothiazide for now Qualifiers: Hypertension type: essential hypertension Qualified Code(s): I10 - Essential (primary) hypertension (6) Cigarette smoker Current visit: No Status: Chronic Smoking cessation counseling given for 5 minutes. Nicotine patch ordered Internal Medicine - H&P: HPI Chief complaint: Abdominal pain Admitted From: Emergency Dept History of present illness: Ms. Anderson is a 36 year old female with a past medical history of chronic pancreatitis, alcohol abuse, tobacco abuse, hypertension who left against medical advise from the hospital on December 13 where she was admitted for similar situation. She can complain of severe nausea and vomiting that started yesterday, she drank a 6 pack of beer on Monday in 3 more beers on Monday, she has been trying to think to rehabilitation to stop drinking but has been unsuccessful. This time she comes with a sodium of 132 and glucose of 445 lipase is 120 B hydroxybutyric acid more than 2, potassium 3.8, anion gap was 22 [place] which she was started on an insulin drip and diagnosed with DKA. Ketones were positive in urine. Blood pressure was 178/25. At the moment the and iron gap has closed down to 13. Is still complaining of severe abdominal pain 8 out of 10 in intensity, nausea. Past Med Surg Social Fam HX - Past Medical History Medical history: arthritis, GERD, hypertension, kidney stones, liver disease, migraine, other (Alcohol abuse, chronic pancreatitis, migraines, tobacco use) Psychiatric history: anxiety, depression, other - Past Surgical History Surgical History: other (Tonsillectomy) - Social History Smoking Status: Current every day smoker Smokeless Tobacco Status: No Alcohol use: heavy, recent Drug use: none, unknown - Family History Father Living Status: Still Living Hx Family Cardiac Disorders: No Hx Family Respiratory Disorders: No Hx Family Cancer: Yes Hx Family GI Disorders: No Hx Family Endocrine Disorder: No Hx Family Neuromuscular Disorders: No Hx Family Neurologic Disorders: No Hx Family HEENT Disorders: No Hx Family Autoimmune Disorders: No - Additional Family History Additional family history: father with hypertension Internal Medicine - H&P: Meds Aspirin/Sod Bicarb/Citric Acid [[place] Original Tab Eff] 1 tab PO DAILY PRN 12/21/16 [History] FLUoxetine HCl [PROzac] 20 mg PO DAILY 12/21/16 [History] Lisinopril/Hydrochlorothiazide [Zestoretic 10-12.5 mg Tablet] 1 tab PO DAILY [History] Naproxen Sodium [Aleve] 220 mg PO BID PRN 12/21/16 [History] Pantoprazole Sodium [Protonix] 40 mg PO DAILY 12/21/16 [History] Allergies No Known Allergies Allergy (Verified 11/25/16 16:01) All Systems PM: A 10-system review of systems was performed and is negative for pertinent findings except as documented above in the HPI. Review of systems: Abdominal pain, nausea, no diarrhea, no dysuria. Other systems out of the 10 reviewed were negative - Constitutional Vitals: Temp Pulse Resp BP Pulse Ox 98 F 111 16 140/94 95 12/20/16 22:46 12/21/16 07:39 12/21/16 05:55 12/21/16 07:39 12/21/16 07:39 General appearance: Present: A&O X 3 (Dehydrated, dry mucosa) - Head Head exam: Present: atraumatic, normocephalic - Eye Eye exam: Present: PERRL, conjuntiva pink, sclera anicteric Pupils: Present: PERRL - Neck Neck exam general surgery: Present: supple, trachea midline. Absent: lymphadenopathy - Respiratory Respiratory exam: Present: CTAB. Absent: accessory muscle use, rales, rhonchi, wheezes - Cardiovascular Cardiovascular exam: Present: RRR, +S1, +S2. Absent: diastolic murmur, gallop, rubs, systolic murmur - GI/Abdominal GI/Abdominal exam: Present: normal bowel sounds, soft, tenderness (Epigastric tenderness, negative Hyman sign), no peritoneal signs. Absent: distended - Extremities Exam Extremities exam: Present: warm, radial pulses palpable and symetrical. Absent : calf tenderness, cyanotic, pedal edema - Neurological Exam Neurological exam: Present: CN II-XII intact, oriented X3, no focal deficits. Absent: pronater drift, facial droop, speech deficit - Skin Skin exam: Present: dry, intact Internal Med - H&P Results - Labs CBC & Chem 7: 12/21/16 07:37 12/21/16 07:37 Labs: Short CBC 12/20/16 12/21/16 Range/Units 23:58 07:37 WBC 10.7 12.0 H (4.3-11.1) K/mcL Hgb 15.8 H 14.3 D (11.5-15.4) g/dL Hct 45.1 H 41.2 (35.3-44.9) % Plt Count 172 154 (140-400) K/mcL Neutrophils # 7.7 (1.6-8.9) K/mcL BMP 12/20/16 12/21/16 23:12 07:37 Sodium 132 L 136 Potassium 3.8 3.4 L Chloride 88 L 95 L Carbon Dioxide 22 28 BUN 15 17 Creatinine 1.01 0.81 Glucose 445 H 121 H Calcium 10.0 9.1 Liver Function 12/20/16 Range/Units 23:12 Total Bilirubin 1.4 H (0.2-1.2) mg/dL Direct Bilirubin 0.7 H (0.0-0.5) mg/dL AST 53 H (5-34) Units/L ALT 41 (0-55) Units/L Alkaline Phosphatase 106 (38-126) Units/L Albumin 4.4 (3.5-5.0) g/dL Urine 12/20/16 Range/Units 23:00 Urine Color Yellow (Yellow) Urine Clarity Clear (Clear) Urine pH 5.5 (5.0-8.0) pH Units Ur Specific [place] > 1.030 H (1.010-1.025) Urine Protein 100 H (Neg-Trace) mg/dL Urine Glucose (UA) >=1000 H (Normal) mg/dL - ABG Interpretation ABG results: 12/21/16 01:27 VBG pH 7.38 VBG pCO2 41 VBG pO2 84 H VBG HCO3 24.3
[2016-12-21] MEDS: Insulin DETEMIR 100 UNIT/ML X5UNITS SQ SCH (08:36)
[2016-12-21] MEDS: Nicotine 21 MG PATCH.TD24 TD SCH (10:19)
[2016-12-21] MEDS: Pantoprazole 40 MG VIAL IVP SCH (11:02)
[2016-12-21] MEDS: FLUoxetine 20 MG CAPSULE PO SCH (11:02)
[2016-12-21] MEDS: Insulin LISPRO 300 UNITS/3 ML VIAL SQ SCH ×2 (12:26→18:49)
[2016-12-21 14:12] LABS: BUN/Creatinine Ratio 19 (6-26); Blood Urea Nitrogen 18 mg/dL (7-20); Calcium 8.3 mg/dL (8.6-10.8); Carbon Dioxide 27 mEq/L (19-29); Chloride 94 mEq/L (98-109); Glucose 344 mg/dL (70-99); Osmolality,Calculated 292 (280-300); Potassium 3.6 mEq/L (3.5-4.5); Sodium 133 mEq/L (136-145); eGFR For African Americans > 60 (> 60); eGFR For Non-African Americans > 60 (> 60)
[2016-12-21] MEDS: Ondansetron 4 MG/2 ML VIAL IVP PRN (15:04)
[2016-12-21] MEDS: *HR* HYDROmorphone 2 MG/ML SYRINGE IVP PRN ×3 (16:11→23:22)
[2016-12-21] MEDS: *HR* Heparin 5,000 UNIT/ML VIAL SQ SCH (16:12)
[2016-12-21] MEDS: *HR* LORazepam 2 MG/ML VIAL IVP PRN ×3 (16:12→23:24)
[2016-12-22] MEDS: D5% in 0.45% NACL w KCl 10 MEQ/1,000 ML MLS IVC SCH ×4 (00:11→21:18)
[2016-12-22] MEDS: *HR* Heparin 5,000 UNIT/ML VIAL SQ SCH ×3 (00:13→14:55)
[2016-12-22] MEDS: Insulin LISPRO 300 UNITS/3 ML VIAL SQ SCH ×4 (00:35→18:04)
[2016-12-22] MEDS: *HR* HYDROmorphone 2 MG/ML SYRINGE IVP PRN ×7 (02:33→21:18)
[2016-12-22] MEDS: *HR* LORazepam 2 MG/ML VIAL IVP PRN ×4 (02:38→21:33)
[2016-12-22 05:07] LABS: Hematocrit 37.2 % (35.3-44.9); Mean Corpuscular HGB Conc 34.1 g/dL (31.6-35.5); Mean Corpuscular Hemoglobin 32.4 pg (28.0-33.3); Mean Corpuscular Volume 94.9 fL (83.0-100.0); Mean Platelet Volume 10.9 fL (9.4-12.4); Platelet Count 120 K/mcL (140-400); Red Blood Count 3.92 M/mcL (3.82-4.97); Red Cell Distribution Width 12.7 % (11.5-14.5)
[2016-12-22 05:08] LABS: Hemoglobin 12.7 g/dL (11.5-15.4)
[2016-12-22 05:22] LABS: BUN/Creatinine Ratio 18 (6-26); Blood Urea Nitrogen 14 mg/dL (7-20); Calcium 8.3 mg/dL (8.6-10.8); Carbon Dioxide 23 mEq/L (19-29); Chloride 99 mEq/L (98-109); Chol/HDL Ratio 3.4 (0-4.9); Cholesterol 183 mg/dL (< 200); Glucose 260 mg/dL (70-99); HDL Cholesterol 54 mg/dL (40-59); LDL Cholesterol,Calculated 70 mg/dL (0-99); Osmolality,Calculated 285 (280-300); Potassium 3.7 mEq/L (3.5-4.5); Sodium 133 mEq/L (136-145); Triglycerides 296 mg/dL (< 150); eGFR For African Americans > 60 (> 60); eGFR For Non-African Americans > 60 (> 60)
[2016-12-22 05:32] LABS: Hemoglobin A1C 7.9 %
[2016-12-22] MEDS: Nicotine 21 MG PATCH.TD24 TD SCH (07:58)
[2016-12-22] MEDS: FLUoxetine 20 MG CAPSULE PO SCH (07:58)
[2016-12-22] MEDS: Pantoprazole 40 MG VIAL IVP SCH (07:59)
[2016-12-22] MEDS: Insulin DETEMIR 100 UNIT/ML X5UNITS SQ SCH (08:00)
[2016-12-22] MEDS ORDERED: *HR* LORazepam 2 MG/ML VIAL IVP PRN (10:30)
[2016-12-22 16:10] LABS: Amylase 14 Units/L (25-125); Lipase 37 Units/L (8-78)
--- NOTE | 2016-12-22 18:46 | Internal Med Progress Note ---
Date of Encounter: 12/22/16 Time of Encounter: 13:00 - Assessment and plan (1) Pancreatitis Current Visit: No Status: Acute Assessment and plan: We will check lipase and amylase in the morning. Continue with nothing by mouth. IV fluids. IV Dilaudid for pain. She is at high risk for morbidity or mortality and complications due to frequent and high doses of IV opiates for pain. Qualifiers: Chronicity: acute Pancreatitis type: alcohol induced Acute pancreatitis complication: unspecified Qualified Code(s): K85.20 - Alcohol induced acute pancreatitis without necrosis or infection (2) Alcoholism Current Visit: No Status: Acute Assessment and plan: Counseling was provided. Enforced the need to refrain from alcohol consumption. (3) DVT prophylaxis Current Visit: No Status: Acute Assessment and plan: Subcutaneous heparin (4) Depression Current Visit: No Status: Chronic Assessment and plan: Continue home meds. Qualifiers: Depression Type: major depressive disorder Major depression recurrence: recurrent Active/Remission status: currently active Major depression episode severity: moderate Qualified Code(s): F33.1 - Major depressive disorder, recurrent, moderate (5) Cigarette smoker Current Visit: No Status: Chronic Assessment and plan: We will provide nicotine replacement therapy. (6) DKA (diabetic ketoacidoses) Current Visit: Yes Status: Acute Assessment and plan: This has resolved. We will continue with insulin sliding scale every 6 hours. Qualifiers: Diabetes mellitus type: due to underlying condition Diabetes mellitus complication detail: without coma Qualified Code(s): E08.10 - Diabetes mellitus due to underlying condition with ketoacidosis without coma - Subjective Interval history: 12/21/2016: Patient reports 7/10 epigastric abdominal pain, sharp associated with nausea and no vomiting. Improved with IV Dilaudid. She presented with this severe epigastric abdominal pain and was found to have acute pancreatitis and DKA. She reported that she had been drinking heavily prior to that due to social stressors. - Constitutional Vitals: Temp Pulse Resp BP Pulse Ox 97.9 F 92 17 107/75 93 12/22/16 15:10 12/22/16 15:10 12/22/16 15:10 12/22/16 15:10 12/22/16 15:10 General appearance: Present: A&O X 3 (Dehydrated, dry mucosa) - Respiratory Respiratory exam: Present: CTAB. Absent: accessory muscle use, rales, rhonchi, wheezes - Cardiovascular Cardiovascular exam: Present: RRR, +S1, +S2. Absent: diastolic murmur, gallop, rubs, systolic murmur - GI/Abdominal GI/Abdominal exam: Present: normal bowel sounds, soft, no peritoneal signs. Absent: distended, tenderness - Extremities Exam Extremities exam: Present: warm, radial pulses palpable and symetrical. Absent : calf tenderness, cyanotic, pedal edema - Skin Skin exam: Present: dry, intact Internal Medicine: Result - Labs CBC & Chem 7: 12/22/16 04:08 12/22/16 04:08 Labs: Short CBC 12/22/16 Range/Units 04:08 WBC 7.9 (4.3-11.1) K/mcL Hgb 12.7 D (11.5-15.4) g/dL Hct 37.2 (35.3-44.9) % Plt Count 120 L (140-400) K/mcL BMP 12/22/16 04:08 Sodium 133 L Potassium 3.7 Chloride 99 Carbon Dioxide 23 BUN 14 Creatinine 0.76 Glucose 260 H Calcium 8.3 L Consult Discharge Plan - Plan Referrals: NO,PCP [Primary Care Provider] -
[2016-12-23] MEDS: *HR* HYDROmorphone 2 MG/ML SYRINGE IVP PRN ×5 (00:15→13:57)
[2016-12-23] MEDS: *HR* LORazepam 2 MG/ML VIAL IVP PRN ×4 (00:15→08:07)
[2016-12-23] MEDS: *HR* Heparin 5,000 UNIT/ML VIAL SQ SCH ×3 (00:16→17:12)
[2016-12-23] MEDS: Insulin LISPRO 300 UNITS/3 ML VIAL SQ SCH ×4 (00:27→17:16)
[2016-12-23] MEDS: Ondansetron 4 MG/2 ML VIAL IVP PRN (02:24)
[2016-12-23] MEDS: D5% in 0.45% NACL w KCl 10 MEQ/1,000 ML MLS IVC SCH ×2 (04:53→11:58)
[2016-12-23 05:37] LABS: Basophils % 0.7 %; Eosinophils # 0.2 K/mcL (0.0-0.6); Eosinophils % 2.8 %; Hematocrit 34.2 % (35.3-44.9); Hemoglobin 11.5 g/dL (11.5-15.4); Immature Granulocytes % 0.5 % (0-4); Lymphocytes # 2.6 K/mcL (0.6-4.6); Lymphocytes % 42.6 %; Mean Corpuscular HGB Conc 33.6 g/dL (31.6-35.5); Mean Corpuscular Hemoglobin 32.9 pg (28.0-33.3); Mean Corpuscular Volume 97.7 fL (83.0-100.0); Mean Platelet Volume 11.1 fL (9.4-12.4); Monocytes # 0.9 K/mcL (0.0-1.3); Monocytes % 14.1 %; Neutrophils # 2.4 K/mcL (1.6-8.9); Platelet Count 109 K/mcL (140-400); Red Cell Distribution Width 12.8 % (11.5-14.5); Segmented Neutrophils % 39.3 %
[2016-12-23 05:56] LABS: BUN/Creatinine Ratio 12 (6-26); Blood Urea Nitrogen 7 mg/dL (7-20); Calcium 7.8 mg/dL (8.6-10.8); Carbon Dioxide 22 mEq/L (19-29); Chloride 105 mEq/L (98-109); Glucose 158 mg/dL (70-99); Lipase 40 Units/L (8-78); Osmolality,Calculated 281 (280-300); Potassium 3.7 mEq/L (3.5-4.5); Sodium 135 mEq/L (136-145); eGFR For African Americans > 60 (> 60); eGFR For Non-African Americans > 60 (> 60)
[2016-12-23] MEDS: FLUoxetine 20 MG CAPSULE PO SCH (07:50)
[2016-12-23] MEDS: Insulin DETEMIR 100 UNIT/ML X5UNITS SQ SCH (07:51)
[2016-12-23] MEDS: Nicotine 21 MG PATCH.TD24 TD SCH (07:51)
[2016-12-23] MEDS: Pantoprazole 40 MG VIAL IVP SCH (07:51)
--- NOTE | 2016-12-23 13:41 | Internal Med Progress Note ---
Date of Encounter: 12/23/16 Time of Encounter: 13:40 - Assessment and plan (1) Pancreatitis Current Visit: No Status: Acute Assessment and plan: 12/23/2016: Lipase has normalized. She still has significant pain. Given that she has chronic pancreatitis and normalized lipase level does not mean that her inflammation and therefore we will continue to treat for pancreatitis. We will continue with clear liquid diet which was started last night. Encourage small frequent meals. Encourage oral hydration. Stop IV fluids. Pain control: We will decrease IV Dilaudid from 1.5 mg every 3 hours to 1 mg every 6 hours and had oxycodone short-acting. The patient uses her IV Dilaudid every 3 hours. She is certainly at very high risk for morbidity and mortality and complications due to high doses of IV opiates. We will monitor mental status and vital signs closely. Again I have advised complete alcohol cessation. 12/22/2016: We will check lipase and amylase in the morning. Continue with nothing by mouth. IV fluids. IV Dilaudid for pain. She is at high risk for morbidity or mortality and complications due to frequent and high doses of IV opiates for pain. Qualifiers: Chronicity: acute Pancreatitis type: alcohol induced Acute pancreatitis complication: unspecified Qualified Code(s): K85.20 - Alcohol induced acute pancreatitis without necrosis or infection (2) Alcoholism Current Visit: No Status: Acute Assessment and plan: Counseling was provided. Enforced the need to refrain from alcohol consumption. (3) DVT prophylaxis Current Visit: No Status: Acute Assessment and plan: Subcutaneous heparin on January 05 inch SHE is cardiology was admitted she came in with chest the chest pain. She had CABG heart reveals a difficult to control her or just she is difficult to control she can she I do not remember that has been (4) Depression Current Visit: No Status: Chronic Assessment and plan: Continue home meds. Qualifiers: Depression Type: major depressive disorder Major depression recurrence: recurrent Active/Remission status: currently active Major depression episode severity: moderate Qualified Code(s): F33.1 - Major depressive disorder, recurrent, moderate (5) Cigarette smoker Current Visit: No Status: Chronic Assessment and plan: We will provide nicotine replacement therapy. (6) DKA (diabetic ketoacidoses) Current Visit: Yes Status: Acute Assessment and plan: This has resolved. Switch to insulin sliding scale with meals. Qualifiers: Diabetes mellitus type: due to underlying condition Diabetes mellitus complication detail: without coma Qualified Code(s): E08.10 - Diabetes mellitus due to underlying condition with ketoacidosis without coma (7) Alcohol withdrawal Current Visit: Yes Status: Acute Assessment and plan: She scores high on CIWA scales. I would start Librium taper. We will use IV Ativan for uncontrolled symptoms. Qualifiers: Complication of substance-induced condition: uncomplicated Qualified Code(s ): F10.230 - Alcohol dependence with withdrawal, uncomplicated - Subjective Interval history: 12/23/2016: Patient reports severe, sharp, 7/10 currently epigastric abdominal pain that only improves with IV Dilaudid. Pain is worse with taking a few bites of Jell-O as she was started on clear liquid diet. Denies associated vomiting or diarrhea. 12/21/2016: Patient reports 7/10 epigastric abdominal pain, sharp associated with nausea and no vomiting. Improved with IV Dilaudid. She presented with this severe epigastric abdominal pain and was found to have acute pancreatitis and DKA. She reported that she had been drinking heavily prior to that due to social stressors. - Constitutional Vitals: Temp Pulse Resp BP Pulse Ox 98 F 87 18 115/82 94 12/23/16 11:05 12/23/16 11:05 12/23/16 11:05 12/23/16 11:05 12/23/16 11:05 General appearance: Present: A&O X 3 (Dehydrated, dry mucosa) - Eye Eye exam: Present: PERRL, conjuntiva pink, sclera anicteric Pupils: Present: PERRL - Respiratory Respiratory exam: Present: CTAB. Absent: accessory muscle use, rales, rhonchi, wheezes - Cardiovascular Cardiovascular exam: Present: RRR, +S1, +S2. Absent: diastolic murmur, gallop, rubs, systolic murmur - GI/Abdominal GI/Abdominal exam: Present: normal bowel sounds, soft, no peritoneal signs. Absent: distended, tenderness - Extremities Exam Extremities exam: Present: warm, radial pulses palpable and symetrical. Absent : calf tenderness, cyanotic, pedal edema - Skin Skin exam: Present: dry, intact Internal Medicine: Result - Labs CBC & Chem 7: 12/23/16 05:01 12/23/16 05:01 Labs: Short CBC 12/23/16 Range/Units 05:01 WBC 6.1 (4.3-11.1) K/mcL Hgb 11.5 (11.5-15.4) g/dL Hct 34.2 L (35.3-44.9) % Plt Count 109 L (140-400) K/mcL Neutrophils # 2.4 (1.6-8.9) K/mcL BMP 12/23/16 05:01 Sodium 135 L Potassium 3.7 Chloride 105 Carbon Dioxide 22 BUN 7 Creatinine 0.60 Glucose 158 H Calcium 7.8 L Consult Discharge Plan - Plan Referrals: NO,PCP [Primary Care Provider] -
[2016-12-23] MEDS ORDERED: *HR* OxyCODONE Immed Rel 5 MG TABLET PO PRN (16:26)
[2016-12-23] MEDS: *HR* HYDROmorphone 4 MG TABLET PO SCH (20:15)
[2016-12-23] MEDS: *HR* HYDROmorphone (PF) 1 MG/ML SYRINGE IVP PRN (22:47)
[2016-12-24] MEDS: *HR* Heparin 5,000 UNIT/ML VIAL SQ SCH ×3 (00:18→15:10)
[2016-12-24] MEDS: *HR* HYDROmorphone 4 MG TABLET PO SCH ×7 (00:18→21:34)
[2016-12-24] MEDS: Insulin LISPRO 300 UNITS/3 ML VIAL SQ SCH ×4 (00:22→17:32)
[2016-12-24 04:48] LABS: Basophils # 0.1 K/mcL (0.0-0.2); Basophils % 0.9 %; Eosinophils # 0.2 K/mcL (0.0-0.6); Eosinophils % 2.7 %; Hematocrit 34.9 % (35.3-44.9); Hemoglobin 11.7 g/dL (11.5-15.4); Immature Granulocytes % 0.5 % (0-4); Lymphocytes # 2.9 K/mcL (0.6-4.6); Lymphocytes % 49.6 %; Mean Corpuscular HGB Conc 33.5 g/dL (31.6-35.5); Mean Corpuscular Hemoglobin 33.1 pg (28.0-33.3); Mean Corpuscular Volume 98.6 fL (83.0-100.0); Mean Platelet Volume 10.1 fL (9.4-12.4); Monocytes # 0.7 K/mcL (0.0-1.3); Monocytes % 12.4 %; Platelet Count 110 K/mcL (140-400); Red Blood Count 3.54 M/mcL (3.82-4.97); Red Cell Distribution Width 12.7 % (11.5-14.5); Segmented Neutrophils % 33.9 %
[2016-12-24 05:16] LABS: Alanine Aminotransferase 18 Units/L (0-55); Albumin 3.1 g/dL (3.5-5.0); Albumin/Globulin Ratio 0.9 (1.1-2.2); Alkaline Phosphatase 67 Units/L (38-126); Aspartate Amino Transferase 39 Units/L (5-34); BUN/Creatinine Ratio 6 (6-26); Bilirubin,Direct 0.2 mg/dL (0.0-0.5); Bilirubin,Indirect 0.4 mg/dL (0.0-1.2); Bilirubin,Total 0.6 mg/dL (0.2-1.2); Calcium 8.2 mg/dL (8.6-10.8); Carbon Dioxide 25 mEq/L (19-29); Chloride 108 mEq/L (98-109); Globulin 3.6 g/dL (2.4-3.5); Glucose 139 mg/dL (70-99); Lipase 37 Units/L (8-78); Magnesium 1.3 mg/dL (1.6-2.6); Osmolality,Calculated 287 (280-300); Potassium 3.7 mEq/L (3.5-4.5); Sodium 139 mEq/L (136-145); Total Protein 6.7 g/dL (6.0-8.3); eGFR For African Americans > 60 (> 60); eGFR For Non-African Americans > 60 (> 60)
[2016-12-24 05:17] LABS: Blood Urea Nitrogen 4 mg/dL (7-20)
[2016-12-24] MEDS: *HR* HYDROmorphone (PF) 1 MG/ML SYRINGE IVP PRN (06:35)
[2016-12-24] MEDS ORDERED: Magnesium Sulfate 2 GM in D5% in Water 100 ML IVPB ONE (08:02)
[2016-12-24] MEDS: Pantoprazole 40 MG VIAL IVP SCH (08:09)
[2016-12-24] MEDS: Nicotine 21 MG PATCH.TD24 TD SCH (08:09)
[2016-12-24] MEDS: Insulin DETEMIR 100 UNIT/ML X5UNITS SQ SCH (08:10)
[2016-12-24] MEDS: FLUoxetine 20 MG CAPSULE PO SCH (08:10)
[2016-12-24] MEDS ORDERED: *HR* HYDROmorphone (PF) 1 MG/ML SYRINGE IVP PRN (12:02)
[2016-12-24] MEDS ORDERED: *HR* HYDROmorphone 4 MG TABLET PO SCH (12:15)
--- NOTE | 2016-12-24 12:44 | Internal Med Progress Note ---
Date of Encounter: 12/24/16 Time of Encounter: 12:42 - Assessment and plan (1) Pancreatitis Current Visit: No Status: Acute Assessment and plan: Pt appears to be in no distress but constantly complains of pain will continue clear liquid diet pain control advance diet as tolerated decreased IV dilaudid to 0.5mg IV q6h, pt in agreement alcohol cessation advised. pt reports of going through a rehab program in the past for alcohol abuse and is wiling to quit at this time She is at high risk for morbidity or mortality and complications due to frequent and high doses of IV opiates for pain. Qualifiers: Chronicity: acute Pancreatitis type: alcohol induced Acute pancreatitis complication: unspecified Qualified Code(s): K85.20 - Alcohol induced acute pancreatitis without necrosis or infection (2) Alcoholism Current Visit: No Status: Acute Assessment and plan: Counseling was provided. Enforced the need to refrain from alcohol consumption. (3) Diabetes mellitus Current Visit: Yes Status: Acute Assessment and plan: BG better controlled continue ss insulin algorithm monitor FS and BG Qualifiers: Diabetes mellitus type: type 2 Diabetes mellitus complication status: with unspecified complications Diabetes mellitus manager long term care insulin use: unspecified senior living insulin use status Qualified Code(s): E11.8 - Type 2 diabetes mellitus with unspecified complications (4) DVT prophylaxis Current Visit: No Status: Acute Assessment and plan: Heparin SQ (5) Hypertension Current Visit: No Status: Chronic Assessment and plan: Repeat BP within acceptable range closely monitor Hydralazine 10mg IV q6h PRN SBP>150 Qualifiers: Hypertension type: essential hypertension Qualified Code(s): I10 - Essential (primary) hypertension (6) Cigarette smoker Current Visit: No Status: Chronic Assessment and plan: nicotine replacement therapy provided (7) Electrolyte abnormality Current Visit: No Status: Acute Assessment and plan: Hypomagnesemia Mg supplemented continue to monitor electrolytes and replace as needed (8) Alcohol withdrawal Current Visit: Yes Status: Acute Assessment and plan: CIWA scores of 0-1 reported will initiate Librium taper changed librium to 25mg PO TID will continue to closely monitor Qualifiers: Complication of substance-induced condition: uncomplicated Qualified Code(s ): F10.230 - Alcohol dependence with withdrawal, uncomplicated - Subjective Interval history: Patient seen and examined at bedside. REsting comfortably in bed and appears to be in no distress. Pt continously exhibits drug seeking behavior as she continuous to demand her pain medications as the scheduled time approaches. I had a detailed discussion about opioid dependence. Pt understands she does easily gets addicted to these agents and is willing to initiate taper CIWA scores have been 0-1. Will start librium taper pt tolerating PO intake (clear liquid diet) - Constitutional Vitals: Temp Pulse Resp BP Pulse Ox 97.6 F 93 16 161/99 95 12/24/16 11:04 12/24/16 11:04 12/24/16 11:04 12/24/16 11:04 12/24/16 11:04 General appearance: Present: A&O X 3, no acute distress, obese - Head Head exam: Present: atraumatic, normocephalic - Eye Eye exam: Present: normal appearance, conjuntiva pink, sclera anicteric - Respiratory Respiratory exam: Present: CTAB. Absent: accessory muscle use, rales, rhonchi, wheezes - Cardiovascular Cardiovascular exam: Present: RRR, +S1, +S2. Absent: diastolic murmur, gallop, rubs, systolic murmur - GI/Abdominal GI/Abdominal exam: Present: distended (obese), normal bowel sounds, soft, no peritoneal signs. Absent: guarding, tenderness - Extremities Exam Extremities exam: Present: warm, radial pulses palpable and symetrical. Absent : calf tenderness, cyanotic, pedal edema - Neurological Exam Neurological exam: Present: alert, oriented X3 - Psychiatric Psychiatric exam: Present: normal affect, normal mood Internal Medicine: Result - Labs CBC & Chem 7: 12/24/16 04:37 12/24/16 04:37 Labs: Short CBC 12/24/16 Range/Units 04:37 WBC 5.9 (4.3-11.1) K/mcL Hgb 11.7 (11.5-15.4) g/dL Hct 34.9 L (35.3-44.9) % Plt Count 110 L (140-400) K/mcL Neutrophils # 2.0 (1.6-8.9) K/mcL BMP 12/24/16 04:37 Sodium 139 Potassium 3.7 Chloride 108 Carbon Dioxide 25 BUN 4 L Creatinine 0.66 Glucose 139 H Calcium 8.2 L Liver Function 12/24/16 Range/Units 04:37 Total Bilirubin 0.6 (0.2-1.2) mg/dL Direct Bilirubin 0.2 (0.0-0.5) mg/dL AST 39 H (5-34) Units/L ALT 18 (0-55) Units/L Alkaline Phosphatase 67 (38-126) Units/L Albumin 3.1 L (3.5-5.0) g/dL Consult Discharge Plan - Plan Referrals: NO,PCP [Primary Care Provider] -
[2016-12-25] MEDS: *HR* HYDROmorphone 4 MG TABLET PO SCH ×6 (01:08→19:41)
[2016-12-25] MEDS: *HR* Heparin 5,000 UNIT/ML VIAL SQ SCH ×3 (01:08→16:04)
[2016-12-25] MEDS: Insulin LISPRO 300 UNITS/3 ML VIAL SQ SCH ×4 (01:09→16:04)
[2016-12-25 04:18] LABS: Basophils # 0.1 K/mcL (0.0-0.2); Basophils % 0.9 %; Eosinophils # 0.2 K/mcL (0.0-0.6); Eosinophils % 2.8 %; Hematocrit 36.4 % (35.3-44.9); Hemoglobin 12.1 g/dL (11.5-15.4); Immature Granulocytes % 0.6 % (0-4); Lymphocytes # 2.6 K/mcL (0.6-4.6); Lymphocytes % 47.8 %; Mean Corpuscular HGB Conc 33.2 g/dL (31.6-35.5); Mean Corpuscular Hemoglobin 32.8 pg (28.0-33.3); Mean Corpuscular Volume 98.6 fL (83.0-100.0); Mean Platelet Volume 10.3 fL (9.4-12.4); Monocytes # 0.8 K/mcL (0.0-1.3); Monocytes % 14.2 %; Neutrophils # 1.8 K/mcL (1.6-8.9); Platelet Count 135 K/mcL (140-400); Red Blood Count 3.69 M/mcL (3.82-4.97); Red Cell Distribution Width 12.7 % (11.5-14.5); Segmented Neutrophils % 33.7 %
[2016-12-25 04:32] LABS: BUN/Creatinine Ratio 6 (6-26); Blood Urea Nitrogen 4 mg/dL (7-20); Carbon Dioxide 26 mEq/L (19-29); Chloride 105 mEq/L (98-109); Glucose 99 mg/dL (70-99); Magnesium 1.4 mg/dL (1.6-2.6); Osmolality,Calculated 285 (280-300); Phosphorous 3.1 mg/dL (2.3-4.7); Potassium 3.2 mEq/L (3.5-4.5); Sodium 139 mEq/L (136-145); eGFR For African Americans > 60 (> 60); eGFR For Non-African Americans > 60 (> 60)
[2016-12-25] MEDS ORDERED: Magnesium Sulfate 2 GM in D5% in Water 100 ML IVPB ONE (08:25)
[2016-12-25] MEDS: FLUoxetine 20 MG CAPSULE PO SCH (08:46)
[2016-12-25] MEDS: Insulin DETEMIR 100 UNIT/ML X5UNITS SQ SCH (08:47)
[2016-12-25] MEDS: Pantoprazole 40 MG VIAL IVP SCH (08:47)
[2016-12-25] MEDS: Nicotine 21 MG PATCH.TD24 TD SCH (08:48)
--- NOTE | 2016-12-25 13:09 | Internal Med Progress Note ---
Date of Encounter: 12/25/16 Time of Encounter: 12:20 - Assessment and plan (1) Pancreatitis Current Visit: No Status: Acute Assessment and plan: Pt appears to be in no distress but constantly complains of pain tolerating ADA diet pain control discontinue all IV pain medications PO pain meds likely d/c in am if remains clinically stable. alcohol cessation advised. pt reports of going through a rehab program in the past for alcohol abuse and is wiling to quit at this time Qualifiers: Chronicity: acute Pancreatitis type: alcohol induced Acute pancreatitis complication: unspecified Qualified Code(s): K85.20 - Alcohol induced acute pancreatitis without necrosis or infection (2) Alcoholism Current Visit: No Status: Acute Assessment and plan: Counseling was provided. Enforced the need to refrain from alcohol consumption. (3) Diabetes mellitus Current Visit: Yes Status: Acute Assessment and plan: BG better controlled continue ss insulin algorithm monitor FS and BG Qualifiers: Diabetes mellitus type: type 2 Diabetes mellitus complication status: with unspecified complications Diabetes mellitus fdc insulin use: unspecified fdc insulin use status Qualified Code(s): E11.8 - Type 2 diabetes mellitus with unspecified complications (4) DVT prophylaxis Current Visit: No Status: Acute Assessment and plan: Heparin SQ (5) Hypertension Current Visit: No Status: Chronic Assessment and plan: Restarted home medications (lisinopril/HCTZ) closely monitor Hydralazine 10mg IV q6h PRN SBP>150 Qualifiers: Hypertension type: essential hypertension Qualified Code(s): I10 - Essential (primary) hypertension (6) Cigarette smoker Current Visit: No Status: Chronic Assessment and plan: nicotine replacement therapy provided (7) Electrolyte abnormality Current Visit: No Status: Acute Assessment and plan: Hypomagnesemia Mg supplemented continue to monitor electrolytes and replace as needed (8) Alcohol withdrawal Current Visit: Yes Status: Acute Assessment and plan: CIWA scores of 0-1 reported will initiate Librium taper changed librium to 25mg PO TID PRN will continue to closely monitor Qualifiers: Complication of substance-induced condition: uncomplicated Qualified Code(s ): F10.230 - Alcohol dependence with withdrawal, uncomplicated - Subjective Interval history: Patient seen and examined at bedside. Resting in bed and beginning to tolerate better PO intake. Pt states she is feeling better but continues to rate her pain being 7-10. Pt in agreement to discontinuing IV pain medications as part of her discharge planning. Noted to be hypertensive and restarted her home BP medications (Lisinopril/HCTZ). - Constitutional Vitals: Temp Pulse Resp BP Pulse Ox 98.3 F 84 15 126/81 96 12/25/16 10:42 12/25/16 10:42 12/25/16 10:42 12/25/16 10:42 12/25/16 10:42 General appearance: Present: A&O X 3, no acute distress, obese - Head Head exam: Present: atraumatic, normocephalic - Eye Eye exam: Present: normal appearance, conjuntiva pink, sclera anicteric - Respiratory Respiratory exam: Present: CTAB. Absent: accessory muscle use, rales, rhonchi, wheezes - Cardiovascular Cardiovascular exam: Present: RRR, +S1, +S2. Absent: diastolic murmur, gallop, rubs, systolic murmur - GI/Abdominal GI/Abdominal exam: Present: normal bowel sounds, soft, no peritoneal signs. Absent: distended, tenderness - Extremities Exam Extremities exam: Present: warm, radial pulses palpable and symetrical. Absent : calf tenderness, cyanotic, pedal edema - Neurological Exam Neurological exam: Present: alert, oriented X3 - Psychiatric Psychiatric exam: Present: normal affect, normal mood Internal Medicine: Result - Labs CBC & Chem 7: 12/25/16 03:55 12/25/16 03:55 Labs: Short CBC 12/25/16 Range/Units 03:55 WBC 5.4 (4.3-11.1) K/mcL Hgb 12.1 (11.5-15.4) g/dL Hct 36.4 (35.3-44.9) % Plt Count 135 L (140-400) K/mcL Neutrophils # 1.8 (1.6-8.9) K/mcL BMP 12/25/16 03:55 Sodium 139 Potassium 3.2 L Chloride 105 Carbon Dioxide 26 BUN 4 L Creatinine 0.64 Glucose 99 Calcium 9.0 Consult Discharge Plan - Plan Referrals: NO,PCP [Primary Care Provider] -
[2016-12-25] MEDS: hydroCHLOROthiazide 25 MG TABLET PO SCH (18:45)
[2016-12-26] MEDS: *HR* Heparin 5,000 UNIT/ML VIAL SQ SCH ×2 (00:32→07:35)
[2016-12-26] MEDS: *HR* HYDROmorphone 4 MG TABLET PO SCH ×4 (00:32→12:55)
[2016-12-26 06:16] LABS: Basophils % 0.6 %; Eosinophils # 0.2 K/mcL (0.0-0.6); Eosinophils % 2.6 %; Hemoglobin 12.8 g/dL (11.5-15.4); Immature Granulocytes % 0.5 % (0-4); Immature Platelets 5.8 % (1.1-6.1); Lymphocytes # 2.8 K/mcL (0.6-4.6); Lymphocytes % 42.4 %; Mean Corpuscular HGB Conc 33.7 g/dL (31.6-35.5); Mean Corpuscular Hemoglobin 32.7 pg (28.0-33.3); Mean Corpuscular Volume 97.2 fL (83.0-100.0); Mean Platelet Volume 10.3 fL (9.4-12.4); Monocytes % 15.7 %; Neutrophils # 2.5 K/mcL (1.6-8.9); Platelet Count 165 K/mcL (140-400); Red Blood Count 3.91 M/mcL (3.82-4.97); Red Cell Distribution Width 12.7 % (11.5-14.5); Segmented Neutrophils % 38.2 %
[2016-12-26 06:40] LABS: BUN/Creatinine Ratio 7 (6-26); Blood Urea Nitrogen 5 mg/dL (7-20); Calcium 9.7 mg/dL (8.6-10.8); Carbon Dioxide 25 mEq/L (19-29); Chloride 101 mEq/L (98-109); Glucose 153 mg/dL (70-99); Magnesium 1.2 mg/dL (1.6-2.6); Osmolality,Calculated 284 (280-300); Phosphorous 4.1 mg/dL (2.3-4.7); Potassium 3.6 mEq/L (3.5-4.5); Sodium 137 mEq/L (136-145); eGFR For African Americans > 60 (> 60); eGFR For Non-African Americans > 60 (> 60)
[2016-12-26] MEDS: Pantoprazole 40 MG VIAL IVP SCH (07:35)
[2016-12-26] MEDS: FLUoxetine 20 MG CAPSULE PO SCH (07:35)
[2016-12-26] MEDS: hydroCHLOROthiazide 25 MG TABLET PO SCH (07:35)
[2016-12-26] MEDS: Nicotine 21 MG PATCH.TD24 TD SCH (07:35)
[2016-12-26] MEDS: Insulin LISPRO 300 UNITS/3 ML VIAL SQ SCH ×2 (07:37→12:55)
[2016-12-26] MEDS: Insulin DETEMIR 100 UNIT/ML X5UNITS SQ SCH (07:37)
[2016-12-26] MEDS ORDERED: Magnesium Sulfate 2 GM in D5% in Water 100 ML IVPB ONE (07:53)
--- NOTE | 2016-12-26 09:24 | Discharge Summary ---
Date of Encounter: 12/26/16 Time of Encounter: 08:55 - Discharge Diagnosis (1) Pancreatitis Priority: Primary Status: Acute Qualifiers: Chronicity: acute Pancreatitis type: alcohol induced Acute pancreatitis complication: unspecified Qualified Code(s): K85.20 - Alcohol induced acute pancreatitis without necrosis or infection (2) Alcoholism Priority: Secondary Status: Chronic (3) Diabetes mellitus Priority: Secondary Status: Acute Qualifiers: Diabetes mellitus type: type 2 Diabetes mellitus complication status: with unspecified complications Diabetes mellitus parts counterman insulin use: unspecified parts counterman insulin use status Qualified Code(s): E11.8 - Type 2 diabetes mellitus with unspecified complications (4) DVT prophylaxis Priority: Secondary Status: Acute (5) Hypertension Priority: Secondary Status: Chronic Qualifiers: Hypertension type: essential hypertension Qualified Code(s): I10 - Essential (primary) hypertension (6) Cigarette smoker Priority: Secondary Status: Chronic (7) Electrolyte abnormality Priority: Secondary Status: Resolved (8) Alcohol withdrawal Priority: Primary Status: Acute Qualifiers: Complication of substance-induced condition: uncomplicated Qualified Code(s ): F10.230 - Alcohol dependence with withdrawal, uncomplicated - Discharge Medications Prescriptions: OxyCODONE/APAP 5/325 [Percocet 5/325 MG] 1 each PO Q6HR PRN #20 tablet PRN Reason: Severe Pain Magnesium Oxide [Mag-Ox] 400 mg PO BID #20 tablet metFORMIN [Glucophage] 500 mg PO BIDWM #30 tablet Home Medications: Aspirin/Sod Bicarb/Citric Acid [Hattie-Ridgely Original Tab Eff] 1 tab PO DAILY PRN 12/21/16 [History] FLUoxetine HCl [Prozac] 20 mg PO DAILY 12/21/16 [History] Lisinopril/Hydrochlorothiazide [Zestoretic 10-12.5 mg Tablet] 1 tab PO DAILY [History] Naproxen Sodium [Aleve] 220 mg PO BID PRN 12/21/16 [History] Pantoprazole Sodium [Protonix] 40 mg PO DAILY 12/21/16 [History] Magnesium Oxide [Mag-Ox] 400 mg PO BID #20 tablet 12/26/16 [Rx] OxyCODONE/APAP 5/325 [Percocet 5/325 MG] 1 each PO Q6HR PRN #20 tablet 12/26/16 [Rx] metFORMIN [Glucophage] 500 mg PO BIDWM #30 tablet 12/26/16 [Rx] Allergies/Adverse Reactions: Allergies No Known Allergies Allergy (Verified 11/25/16 16:01) Date of admission: 12/21/16 09:38 Primary care physician: NEELAM FONTANA Discharging clinician: Sylwia Mcneill Anticipated date of discharge: 12/26/16 - Patient Status Disposition: Home, Self-Care Condition: Good Functional capacity at discharge: independent ambulation Overall status at discharge: patient is back to baseline - Discharge Instructions Instructions: How to Check Your Blood Sugar (DC), Diabetes Mellitus Type 2 in Adults (DC), Diabetic Hypoglycemia (DC) Follow Up With: NO,PCP [Primary Care Provider] - Additional Instructions: Please follow up with your primary care physician within five days after your discharge from the hospital. You were newly diagnosed with diabetes during this hospitalization. You will be discharged to home with Metformin 500mg twice day. This medication can cause diarrhea during it's first week of use, please continue taking this medication as prescribed. Please inform your primary care physician of this new diagnosis. please check your fingerstick glucose three times a day and keep a log of these numbers. Take this log with you to your primary care physician's appointment and your medication regimen would be adjusted accordingly. Please check our fingerstick as follows: fasting, two hours after a meal, and at bedtime. Please seek medical help if you are noted to have persistently elevated glucose above 200. Resume all your other home medications as prescribed by your primary care physician. smoking cessation and alcohol cessation are highly advised. - Diet and Activity Activity: resume usual activities as tolerated Diet: diabetic diet Hospital course: Ms. Anderson is a 36 year old female with PMH of chronic pancreatitis, alcohol abuse, tobacco abuse, htn, obesity who was admitted for management of acute alcohol pancreatitis, diabetic ketoacidosis. She was started on IV fluids , insulin therapy, and pain medications. Pt was responded appropriately to therapy. She was found to be a new Diabetic. She was also placed on CIWA monitoring due to her history of alcohol withdrawal. Extensive smoking and alcohol cessation counseling was provided and patient is willing to be compliant. She will received Diabetic education prior to her hospital discharge and will be discharged with Metformin after discharge. Pt is hemodynamically stable and will be discharged to home. She demonstrates understanding of her diagnosis and agree with the discharge care and plan. - Time Spent with Patient Total time spent providing and/or coordinating discharge services: Greater than 30 minutes - Constitutional Vitals: Temp Pulse Resp BP Pulse Ox 98.2 F 68 13 147/108 98 12/26/16 06:55 12/26/16 06:55 12/26/16 06:55 12/26/16 06:55 12/26/16 06:55 General appearance: Present: A&O X 3, no acute distress, obese - Head Head exam: Present: atraumatic, normocephalic - Eye Eye exam: Present: normal appearance, conjuntiva pink, sclera anicteric - Respiratory Respiratory exam: Present: CTAB. Absent: accessory muscle use, rales, rhonchi, wheezes - Cardiovascular Cardiovascular exam: Present: RRR, +S1, +S2. Absent: diastolic murmur, gallop, rubs, systolic murmur - GI/Abdominal GI/Abdominal exam: Present: distended (obese), normal bowel sounds, soft, no peritoneal signs. Absent: tenderness - Extremities Exam Extremities exam: Present: warm, radial pulses palpable and symetrical. Absent : calf tenderness, cyanotic, pedal edema - Neurological Exam Neurological exam: Present: alert, oriented X3 - Psychiatric Psychiatric exam: Present: normal affect, normal mood
[2016-12-26 10:52] VITALS: BP 131/89
== END 2016-12-26 16:49 | disposition home or self-care (01) | DRG 420 ==
LOC: EMEROO 22:16 → SUATTDRO 12-21 09:38 → 2ANU 12-21 09:38
PROVIDERS: ADMIT Internal Medicine; ATTEND Internal Medicine

== ENCOUNTER 2017-03-05 13:17 | Inpatient (IN) ==
[~2017-03-05 13:17] MED LIST: Sodium Phosphate 15 MMOL in D5% in Water 100 ML IVPB ONE
[2017-03-05] MEDS ORDERED: *HR* HYDROmorphone (PF) 1 MG/ML SYRINGE ONE (15:21)
[2017-03-05] MEDS: *HR* HYDROmorphone (PF) 1 MG/ML SYRINGE IVP ONE ×2 (15:22→15:36)
[2017-03-05] MEDS ORDERED: D5% in 0.45% NACL w KCl 20 MEQ/1,000 ML MLS IVC ONE (15:30)
[2017-03-05] MEDS ORDERED: Insulin Regular, Human 100 UNIT/ML IV PRN (15:31)
[2017-03-05] MEDS ORDERED: *HR* Dextrose 50 % in Water (Syg) 50 ML SYRINGE IVP PRN ×2 (15:31→21:48)
[2017-03-05] MEDS ORDERED: Naloxone 0.4 MG/ML INJ IVP PRN (15:31)
[2017-03-05] MEDS ORDERED: *HR* HYDROmorphone (PF) 1 MG/ML SYRINGE IVP PRN (15:31)
[2017-03-05] MEDS ORDERED: *HR* Morphine 2 MG/ML SYRINGE IVP PRN (15:31)
[2017-03-05] MEDS ORDERED: *HR* LORazepam 2 MG/ML VIAL IVP PRN ×2 (15:31)
[2017-03-05] MEDS ORDERED: Insulin Human Regular 100 UNIT in 0.9 % Sodium Chloride 100 ML IVC SCH (15:45)
--- NOTE | 2017-03-05 15:50 | Internal Med History&Physical ---
<MartinezObey - Last Filed: 03/05/17 16:09> Date of Encounter: 03/05/17 Time of Encounter: 15:46 Assessment and Plan (1) DKA (diabetic ketoacidoses) Current visit: No Status: Acute Patient presented with initial glucose of 416 with anion gap metabolic acidosis and ketosis Will start on DKA protocol with insulin drip, VBG, serial BMPs Currently on D5 1/2 NS with 40 KCl at 200 ml/hr given her hypokalemia Repeat CBC, lactic acid, VBG, lipids in the AM Will transition to SQ insulin once anion gap and acidosis resolves Qualifiers: Diabetes mellitus type: due to underlying condition Diabetes mellitus complication detail: without coma Qualified Code(s): E08.10 - Diabetes mellitus due to underlying condition with ketoacidosis without coma (2) Acute on chronic pancreatitis Current visit: Yes Status: Acute Lipase elevated at [address] admission with corresponding CT findings of peripancreatic inflammation Likely secondary to chronic alcohol use and contributing to her DKA Will keep NPO and support with fluids, anti-emetics and analgesics (3) Hypokalemia Current visit: No Status: Acute Potassium last checked was 2.9, which was expected when correcting her acidosis Will start on D5 1/2 NS with 40 KCl as above and also PRN K+ replacements ordered Recheck BMP q4hr to closely monitor electrolytes Obtain Mg, Phos levels (4) Hypertension Current visit: No Status: Chronic Blood pressures elevated after transferring to [facility] Will restart home Lisinopril dose at 20 mg Add PRN Hydralazine 10 mg IV if SBP > 170 Qualifiers: Hypertension type: essential hypertension Qualified Code(s): I10 - Essential (primary) hypertension (5) High anion gap metabolic acidosis Current visit: Yes Status: Acute Management as above per DKA (6) Non-insulin dependent type 2 diabetes mellitus Current visit: Yes Status: Chronic She has been non-compliant with her Metformin and would benefit from diabetic education Will start on insulin drip per DKA protocol Last A1c checked in November was 7.9% (7) Alcoholism Current visit: No Status: Chronic Patient last drank 2 days ago Will start on CIWA protocol Replenishing vitamins with Thiamine and Folic acid (8) DVT prophylaxis Current visit: No Status: Acute Heparin 5000 units BID Internal Medicine - H&P: HPI Chief complaint: abdominal pain Admitted From: Home Plans for Post Hospital Care: Home History of present illness: Ms. Anderson is a 37 year old female who presents with epigastric abdominal pain that started yesterday afternoon. She states the pain is severe and radiates to her back, similar to when she had pancreatitis in the past. She does admit to chronic alcohol use and last drank 2 days ago, and usually drinks twice a week having 4-5 beverages each session. Admits to having roughly 20 episodes of vomiting, describes it as non-bloody. She has not eaten in the past 24 hours, but claims the pain did not start after eating. Denies any chest pain , shortness of breath, fevers, chills, recent illness, diarrhea, constipation, or urinary complaints. Patient also has a history of DM II and HTH but admits to being non-compliant with her Lisinopril and Metformin, and hasn't taken either in weeks because she doesn't "feel like she needs it". Past Med Surg Social Fam HX - Past Medical History Medical history: diabetes, GERD, hypertension Psychiatric history: anxiety, depression, other - Past Surgical History Surgical History: other - Social History Smoking Status: Current every day smoker Packs per day: 0.2 Smokeless Tobacco Status: No Alcohol use: occasionally, recent Drug use: none - Family History Father Living Status: Still Living Hx Family Cardiac Disorders: No Hx Family Respiratory Disorders: No Hx Family Cancer: Yes Hx Family GI Disorders: No Hx Family Endocrine Disorder: No Hx Family Neuromuscular Disorders: No Hx Family Neurologic Disorders: No Hx Family HEENT Disorders: No Hx Family Autoimmune Disorders: No Internal Medicine - H&P: Meds Pantoprazole Sodium [Protonix] 40 mg PO DAILY 12/21/16 [History] LORazepam [Ativan] 0.5 mg PO TID 03/05/17 [History] Allergies No Known Allergies Allergy (Verified 11/25/16 16:01) All Systems PM: A 10-system review of systems was performed and is negative for pertinent findings except as documented above in the HPI. - Constitutional Constitutional: no chills, no fever(s), no night sweats - EENT Eyes: no change in vision, no discharge, no pain, no photophobia Ears: no ear discharge, no ear pain, no tinnitus Nose, mouth and throat: no dysphagia, no nasal discharge, no neck pain, no sore throat - Cardiovascular Cardiovascular ROS IM: no chest pain, no diaphoresis, no dyspnea, no lightheadedness, no palpitations, no syncope - Respiratory Respiratory: no cough, no dyspnea, no wheezing, no excessive phlegm production - Gastrointestinal Gastrointestinal: as per HPI, abdominal pain, nausea, vomiting, no diarrhea, no hematemesis, no hematochezia, no melena - Genitourinary Genitourinary: no change in urinary stream, no dysuria, no flank pain, no hematuria - Musculoskeletal Musculoskeletal ROS IM: no numbness, no tingling - Integumentary Integumentary IM: no rash, no unusual bruising - Neurological Neurological ROS: no confusion, no convulsions, no focal weakness, no numbness, no tingling, no tremor(s) - Hematologic/Lymphatic Hematologic/Lymphatic: no easy bruising - Constitutional Vitals: Temp Pulse Resp BP Pulse Ox 98.1 F 116 16 185/125 100 03/05/17 14:54 03/05/17 14:54 03/05/17 14:54 03/05/17 14:54 03/05/17 14:54 General appearance: Present: cooperative, pleasant, no acute distress, answers questions appropriately - Head Head exam: Present: atraumatic, normocephalic - Eye Eye exam: Present: PERRL, conjuntiva pink, sclera anicteric - Neck Neck exam general surgery: Present: supple, trachea midline. Absent: lymphadenopathy - Respiratory Respiratory exam: Present: CTAB. Absent: accessory muscle use, rales, rhonchi, wheezes - Cardiovascular Cardiovascular exam: Present: +S1, +S2, tachycardia (regular rhythm). Absent: diastolic murmur, gallop, rubs, systolic murmur - GI/Abdominal GI/Abdominal exam: Present: normal bowel sounds, soft, no peritoneal signs. Absent: distended, tenderness - Extremities Exam Extremities exam: Present: warm, radial pulses palpable and symetrical. Absent : calf tenderness, cyanotic, pedal edema, tenderness - Neurological Exam Neurological exam: Present: alert, no focal deficits. Absent: facial droop, speech deficit - Skin Skin exam: Present: dry, intact <Jorge Alberto Kinney - Last Filed: 03/05/17 18:46> Date of Encounter: 08/06/17 Assessment and Plan (1) DKA (diabetic ketoacidoses) Current visit: No Status: Acute Qualifiers: Diabetes mellitus type: due to underlying condition Diabetes mellitus complication detail: without coma Qualified Code(s): E08.10 - Diabetes mellitus due to underlying condition with ketoacidosis without coma (2) Acute on chronic pancreatitis Current visit: Yes Status: Acute (3) Hypertension, essential Current visit: No Status: Acute (4) Hypokalemia Current visit: No Status: Acute (5) Alcohol dependence Current visit: No Status: Chronic Qualifiers: Substance use status: in withdrawal Complication of substance-induced condition: uncomplicated Qualified Code(s): F10.230 - Alcohol dependence with withdrawal, uncomplicated (6) Cigarette smoker Current visit: No Status: Chronic (7) Hypomagnesemia Current visit: Yes Status: Acute Replete today (8) Hypophosphatemia Current visit: Yes Status: Acute Replete today Internal Medicine - H&P: HPI History of present illness: Ms. Anderson is a 37 year old female All Systems PM: A 10-system review of systems was performed and is negative for pertinent findings except as documented above in the HPI. - Constitutional Vitals: Temp Pulse Resp BP Pulse Ox 98.1 F 116 16 185/125 100 03/05/17 14:54 03/05/17 14:54 03/05/17 14:54 03/05/17 14:54 03/05/17 14:54 Internal Med - H&P Results - Labs CBC & Chem 7: 03/05/17 16:03 Labs: BMP 03/05/17 16:03 Sodium 141 Potassium 2.7 L Chloride 111 H Carbon Dioxide 13 L BUN 6 L Creatinine 0.76 Glucose 182 H Calcium 8.2 L - ABG Interpretation ABG results: 03/05/17 16:03 VBG pH 7.28 L VBG pCO2 34 L VBG pO2 219 H VBG HCO3 16.0 L - Attending Attestation I examined this patient and my medical decision-making was reviewed with the Resident Physician on 03/05/17. I agree with the documented findings, disposition and treatment plan as described except to the extent set forth below. Ms. Anderson has had multiple admissions for acute pancreatitis. She has been recently diagnosed with diabetes. She presented to ED at [facility] with N /V and found to have acute pancreatitis as well as DKA. She was started on insulin drip and transferred here. At this time her biggest complaint is abd pain. She has some nausea as well. She remains on insulin drip and is still acidotic on labs. Exam Alert. Mod distress due to pain. Mucus membranes dry Heart tachy and regular Lungs clear Abd soft - midepigastric discomfort without peritoneal signs Ext warm. No edema I/P 1. DKA 2. Acute pancreatitis 3. ETOH Further diagnoses and plan as above. Pt admitted inpatient. She is severely ill and will be hospitalized for at least 2 days.
[2017-03-05] MEDS ORDERED: *HR* HYDROmorphone 20 MG/20 ML PCA IVC PRN (16:15)
[2017-03-05 16:24] LABS: VBG PH 7.28 pH Units (7.32-7.42)
[2017-03-05 16:35] LABS: Magnesium 1.3 mg/dL (1.6-2.6)
[2017-03-05 16:40] LABS: Phosphorous < 0.7 mg/dL (2.3-4.7)
[2017-03-05] MEDS ORDERED: Magnesium Sulfate 2 GM in D5% in Water 100 ML IVPB PRN (16:45)
[2017-03-05] MEDS ORDERED: Sodium Phosphate 30 MMOL in D5% in Water 100 ML IVPB PRN (16:45)
[2017-03-05 17:01] LABS: BUN/Creatinine Ratio 8 (6-26); Blood Urea Nitrogen 6 mg/dL (7-20); Calcium 8.2 mg/dL (8.6-10.8); Carbon Dioxide 13 mEq/L (19-29); Chloride 111 mEq/L (98-109); Glucose 182 mg/dL (70-99); Osmolality,Calculated 294 (280-300); Potassium 2.7 mEq/L (3.5-4.5); Sodium 141 mEq/L (136-145); eGFR For African Americans > 60 (> 60); eGFR For Non-African Americans > 60 (> 60)
[2017-03-05] MEDS: Potassium Chloride 40 MEQ in D5% in 0.45% NACL 1,000 ML IVC SCH ×2 (17:01→22:03)
[2017-03-05] MEDS ORDERED: Thiamine (B-1) 100 MG, Folic Acid 1 MG, MVI, adult with vitamin K 10 ML in 0.9 % Sodi... IVPB SCH (18:00)
[2017-03-05] MEDS: *HR* Promethazine 25 MG/ML VIAL IVP PRN ×2 (18:00→22:10)
[2017-03-05] MEDS ORDERED: 0.9 % Sodium Chloride 500 ML ONE (18:30)
[2017-03-05] MEDS: *HR* Heparin 5,000 UNIT/ML VIAL SQ SCH (20:17)
[2017-03-05] MEDS: *HR* LORazepam 2 MG/ML VIAL IVP PRN ×4 (20:18→23:07)
[2017-03-05] MEDS: Ondansetron 4 MG/2 ML VIAL IVP PRN (20:18)
[2017-03-05 20:55] LABS: BUN/Creatinine Ratio 7 (6-26); Blood Urea Nitrogen 5 mg/dL (7-20); Calcium 8.2 mg/dL (8.6-10.8); Carbon Dioxide 19 mEq/L (19-29); Chloride 109 mEq/L (98-109); Glucose 150 mg/dL (70-99); Osmolality,Calculated 290 (280-300); Potassium 2.7 mEq/L (3.5-4.5); Sodium 140 mEq/L (136-145); eGFR For African Americans > 60 (> 60); eGFR For Non-African Americans > 60 (> 60)
[2017-03-05] MEDS ORDERED: Insulin DETEMIR 100 UNIT/ML X5UNITS SQ ONE (21:44)
[2017-03-05] MEDS ORDERED: Dextrose Gel 15 GM PO PRN ×2 (21:48)
[2017-03-05] MEDS ORDERED: D5% in Water 1,000 ML IVC PRN (21:48)
[2017-03-06 04:39] LABS: VBG HCO3 15.5 mEq/L (21-27); VBG PH 7.35 pH Units (7.32-7.42)
[2017-03-06 04:44] LABS: Chol/HDL Ratio 2.5 (0-4.9); Cholesterol 172 mg/dL (< 200); HDL Cholesterol 68 mg/dL (40-59); LDL Cholesterol,Calculated 83 mg/dL (0-99); Triglycerides 106 mg/dL (< 150)
[2017-03-06 04:56] LABS: Basophils # 0.1 K/mcL (0.0-0.2); Basophils % 0.4 %; Eosinophils % 0.2 %; Hematocrit 38.5 % (35.3-44.9); Hemoglobin 13.5 g/dL (11.5-15.4); Immature Granulocytes % 0.9 % (0-4); Lymphocytes # 1.7 K/mcL (0.6-4.6); Lymphocytes % 13.4 %; Mean Corpuscular HGB Conc 35.1 g/dL (31.6-35.5); Mean Corpuscular Hemoglobin 30.8 pg (28.0-33.3); Mean Corpuscular Volume 87.7 fL (83.0-100.0); Mean Platelet Volume 9.4 fL (9.4-12.4); Monocytes # 1.4 K/mcL (0.0-1.3); Neutrophils # 9.2 K/mcL (1.6-8.9); Platelet Count 171 K/mcL (140-400); Red Blood Count 4.39 M/mcL (3.82-4.97); Red Cell Distribution Width 13.6 % (11.5-14.5); Segmented Neutrophils % 74.1 %
[2017-03-06 05:05] LABS: BUN/Creatinine Ratio 6 (6-26); Carbon Dioxide 15 mEq/L (19-29); Chloride 103 mEq/L (98-109); Glucose 216 mg/dL (70-99); Osmolality,Calculated 285 (280-300); Sodium 136 mEq/L (136-145); eGFR For African Americans > 60 (> 60); eGFR For Non-African Americans > 60 (> 60)
[2017-03-06 05:06] LABS: Blood Urea Nitrogen 4 mg/dL (7-20)
[2017-03-06] MEDS: *HR* Heparin 5,000 UNIT/ML VIAL SQ SCH ×2 (06:09→18:04)
[2017-03-06] MEDS: Pantoprazole 40 MG VIAL IVP SCH (08:23)
[2017-03-06] MEDS: Ondansetron 4 MG/2 ML VIAL IVP PRN ×2 (08:23→21:00)
[2017-03-06] MEDS: Insulin LISPRO 300 UNITS/3 ML VIAL SQ SCH ×7 (08:32→20:49)
--- NOTE | 2017-03-06 11:10 | Internal Med Progress Note ---
Date of Encounter: 03/06/17 Time of Encounter: 11:08 - Assessment and plan (1) DKA (diabetic ketoacidoses) Current Visit: No Status: Acute Assessment and plan: Improving.. Her AG down to 18 cont IV hydration Cont ISS + Levemir QHS will start her on PO meds in AM diabetic education done Qualifiers: Diabetes mellitus type: other specified (including EDGAR) Diabetes mellitus complication detail: without coma Qualified Code(s): E13.10 - Other specified diabetes mellitus with ketoacidosis without coma (2) Non-insulin dependent type 2 diabetes mellitus Current Visit: Yes Status: Chronic Assessment and plan: it looks like type 2 DM with metabolic syndrome HbA1C 7.9 cont ISS + Levemir now will switch to PO meds in AM (3) Acute alcoholic pancreatitis Current Visit: No Status: Acute Assessment and plan: counseled to quit drinking placed on diet today IV fluids trend on lipase Qualifiers: Acute pancreatitis complication: no infection or necrosis Qualified Code(s) : K85.20 - Alcohol induced acute pancreatitis without necrosis or infection (4) Accelerated essential hypertension Current Visit: No Status: Acute Assessment and plan: will start her on PO meds Lisinopril 20mg daily (5) Alcohol dependence Current Visit: No Status: Chronic Assessment and plan: counseled to quit last alcohol 2 days ago high risk for DT's now cont CIWA assessment will give Ativan PRN also started her on Librium tapering dose since pt is willing to go for alcohol rehab Qualifiers: Substance use status: in withdrawal Complication of substance-induced condition: uncomplicated Qualified Code(s): F10.230 - Alcohol dependence with withdrawal, uncomplicated (6) Hypokalemia Current Visit: No Status: Acute Assessment and plan: electrolyte abnormalities due to DKA / Alcohol will cont replacing them (7) DVT prophylaxis Current Visit: No Status: Acute Assessment and plan: on SQ heparin (8) Tobacco abuse Current Visit: No Status: Chronic Assessment and plan: counseled to quit on nicotine patch - Subjective Interval history: This is a 37 y/o F with known recently diagnosed possible type 2 DM2 with metabolic syndrome, HbA1C 7.9 admitted with acute DKA and acute on chronic pancreatitis. Pt is more alert, awake and oriented x 3 now. Denied any CP / SOB. Still has mild abdominal discomfort. No more nausea / vomiting. However she did c/o loss of appetite - Constitutional Vitals: Temp Pulse Resp BP Pulse Ox 97.8 F 117 14 139/105 97 03/06/17 11:03 03/06/17 11:03 03/06/17 11:03 03/06/17 11:03 03/06/17 11:03 General appearance: Present: cooperative, A&O X 3, pleasant, no acute distress, answers questions appropriately - Head Head exam: Present: atraumatic, normal inspection - Respiratory Respiratory exam: Present: CTAB. Absent: accessory muscle use, rales, rhonchi, wheezes - Cardiovascular Cardiovascular exam: Present: +S1, +S2, tachycardia - GI/Abdominal GI/Abdominal exam: Present: normal bowel sounds, soft, tenderness (mild discomfort horacio umelicla region). Absent: distended, firm, guarding, rebound, rigid - Extremities Exam Extremities exam: Absent: calf tenderness, pedal edema, tenderness - Neurological Exam Neurological exam: Present: alert, oriented X3 - Psychiatric Psychiatric exam: Present: normal affect, normal mood Internal Medicine: Result - Labs CBC & Chem 7: 03/06/17 04:13 03/06/17 04:13 Labs: Short CBC 03/06/17 Range/Units 04:13 WBC 12.4 H (4.3-11.1) K/mcL Hgb 13.5 D (11.5-15.4) g/dL Hct 38.5 (35.3-44.9) % Plt Count 171 (140-400) K/mcL Neutrophils # 9.2 H (1.6-8.9) K/mcL BMP 03/05/17 03/05/17 03/06/17 16:03 20:28 04:13 Sodium 141 140 136 Potassium 2.7 L 2.7 L 3.0 L Chloride 111 H 109 103 Carbon Dioxide 13 L 19 15 L BUN 6 L 5 L 4 L Creatinine 0.76 0.67 0.67 Glucose 182 H 150 H 216 H Calcium 8.2 L 8.2 L 8.0 L Consult Discharge Plan - Plan Referrals: Mason Cleaning, SAMUEL [Primary Care Provider] -
[2017-03-06] MEDS: Acetaminophen 325 MG TABLET PO PRN ×2 (11:16→20:59)
[2017-03-06] MEDS: Magnesium Sulfate 2 GM in D5% in Water 100 ML IVPB SCH ×2 (11:18→17:30)
[2017-03-06] MEDS ORDERED: *HR* Promethazine 25 MG/ML VIAL IVP PRN (14:26)
[2017-03-06] MEDS: *HR* LORazepam 1 MG TABLET PO PRN ×2 (14:29→20:59)
[2017-03-06] MEDS: *HR* OxyCODONE/APAP 5/325 TABLET PO PRN ×2 (14:29→18:03)
[2017-03-06 17:39] LABS: BUN/Creatinine Ratio 4 (6-26); Calcium 6.1 mg/dL (8.6-10.8); Carbon Dioxide 13 mEq/L (19-29); Chloride 112 mEq/L (98-109); Glucose 179 mg/dL (70-99); Magnesium 1.4 mg/dL (1.6-2.6); Osmolality,Calculated 283 (280-300); Potassium 4.3 mEq/L (3.5-4.5); Sodium 136 mEq/L (136-145); eGFR For African Americans > 60 (> 60); eGFR For Non-African Americans > 60 (> 60)
[2017-03-06 17:43] LABS: Blood Urea Nitrogen 2 mg/dL (7-20)
[2017-03-06 17:51] LABS: Phosphorous 0.9 mg/dL (2.3-4.7)
--- NOTE | 2017-03-06 20:48 | Electrocardiograph Report ---
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
[2017-03-07] MEDS: *HR* OxyCODONE/APAP 5/325 TABLET PO PRN ×4 (00:18→20:01)
[2017-03-07] MEDS: Acetaminophen 325 MG TABLET PO PRN (03:17)
[2017-03-07] MEDS: *HR* LORazepam 1 MG TABLET PO PRN ×4 (03:17→21:32)
[2017-03-07] MEDS: *HR* Heparin 5,000 UNIT/ML VIAL SQ SCH ×2 (04:53→17:12)
[2017-03-07] MEDS: Ondansetron 4 MG/2 ML VIAL IVP PRN ×2 (04:53→21:32)
[2017-03-07 05:52] LABS: Basophils % 0.7 %; Eosinophils # 0.1 K/mcL (0.0-0.6); Eosinophils % 1.9 %; Hematocrit 35.6 % (35.3-44.9); Hemoglobin 12.4 g/dL (11.5-15.4); Immature Granulocytes % 0.6 % (0-4); Lymphocytes # 1.8 K/mcL (0.6-4.6); Lymphocytes % 32.5 %; Mean Corpuscular HGB Conc 34.8 g/dL (31.6-35.5); Mean Platelet Volume 9.8 fL (9.4-12.4); Monocytes # 0.6 K/mcL (0.0-1.3); Monocytes % 10.4 %; Neutrophils # 2.9 K/mcL (1.6-8.9); Platelet Count 138 K/mcL (140-400); Red Cell Distribution Width 13.8 % (11.5-14.5); Segmented Neutrophils % 53.9 %
[2017-03-07 06:00] LABS: Hemoglobin A1C 11.6 %
[2017-03-07 06:06] LABS: BUN/Creatinine Ratio 4 (6-26); Carbon Dioxide 17 mEq/L (19-29); Chloride 107 mEq/L (98-109); Glucose 208 mg/dL (70-99); Magnesium 1.8 mg/dL (1.6-2.6); Osmolality,Calculated 284 (280-300); Sodium 136 mEq/L (136-145); eGFR For African Americans > 60 (> 60); eGFR For Non-African Americans > 60 (> 60)
[2017-03-07 06:14] LABS: Blood Urea Nitrogen 2 mg/dL (7-20); Calcium 7.2 mg/dL (8.6-10.8); Potassium 3.2 mEq/L (3.5-4.5)
[2017-03-07 06:16] LABS: Phosphorous 0.9 mg/dL (2.3-4.7)
[2017-03-07] MEDS: Pantoprazole 40 MG VIAL IVP SCH (08:11)
[2017-03-07] MEDS: Thiamine (B-1) 100 MG TABLET PO SCH (08:12)
[2017-03-07] MEDS: Folic Acid 1 MG TABLET PO SCH (08:12)
[2017-03-07] MEDS: Multivit/Ca/Min/Fe/FA 1 TAB TABLET PO SCH (08:12)
[2017-03-07] MEDS: Insulin LISPRO 300 UNITS/3 ML VIAL SQ SCH ×6 (08:13→21:45)
[2017-03-07] MEDS ORDERED: Potassium Phosphate 44 MEQ in 0.9 % Sodium Chloride 250 ML IVPB ONE (08:18)
[2017-03-07] MEDS ORDERED: Folic Acid 1 MG TABLET PO SCH (09:00)
[2017-03-07] MEDS: *HR* Morphine 2 MG/ML SYRINGE IVP PRN ×3 (09:13→21:32)
--- NOTE | 2017-03-07 11:32 | Internal Med Progress Note ---
Date of Encounter: 03/07/17 Time of Encounter: 11:25 - Assessment and plan (1) DKA (diabetic ketoacidoses) Current Visit: No Status: Acute Assessment and plan: Improved.. Her AG down to 12 Cont ISS + Levemir QHS Started her on PO meds Metformin 500mg BID , Glipizide 5mg BID diabetic education done Consulted brazing machine operator automatic Qualifiers: Diabetes mellitus type: other specified (including EDGAR) Diabetes mellitus complication detail: without coma Qualified Code(s): E13.10 - Other specified diabetes mellitus with ketoacidosis without coma (2) Non-insulin dependent type 2 diabetes mellitus Current Visit: Yes Status: Chronic Assessment and plan: it looks like type 2 DM with metabolic syndrome Repeat HbA1C 11.6 cont ISS + Levemir now Started on PO meds too For better compliance , will send her home on Lantus 25 QHS + PO Meds close f.u with PCP (3) Acute alcoholic pancreatitis Current Visit: No Status: Acute Assessment and plan: counseled to quit drinking placed on diet today IV fluids trend on lipase Qualifiers: Acute pancreatitis complication: no infection or necrosis Qualified Code(s) : K85.20 - Alcohol induced acute pancreatitis without necrosis or infection (4) Accelerated essential hypertension Current Visit: No Status: Acute Assessment and plan: will start her on PO meds Lisinopril 20mg daily (5) Alcohol dependence Current Visit: No Status: Chronic Assessment and plan: counseled to quit last alcohol 3 days ago high risk for DT's now cont CIWA assessment will give Ativan PRN Cont on Librium tapering dose since pt is willing to go for alcohol rehab Qualifiers: Substance use status: in withdrawal Complication of substance-induced condition: uncomplicated Qualified Code(s): F10.230 - Alcohol dependence with withdrawal, uncomplicated (6) Hypokalemia Current Visit: No Status: Acute Assessment and plan: electrolyte abnormalities due to DKA / Alcohol will cont replacing them (7) DVT prophylaxis Current Visit: No Status: Acute Assessment and plan: on SQ heparin (8) Tobacco abuse Current Visit: No Status: Chronic Assessment and plan: counseled to quit on nicotine patch - Subjective Interval history: This is a 37 y/o F with known recently diagnosed possible type 2 DM2 with metabolic syndrome, HbA1C 7.9 admitted with acute DKA and acute on chronic pancreatitis. Pt is more alert, awake and oriented x 3 now. Denied any CP / SOB. Still has mild abdominal discomfort. No more nausea / vomiting. Denied any new complaints. - Constitutional Vitals: Temp Pulse Resp BP Pulse Ox 98.2 F 87 18 132/93 98 03/07/17 07:00 03/07/17 07:00 03/07/17 07:00 03/07/17 07:00 03/07/17 07:00 General appearance: Present: cooperative, A&O X 3, pleasant, no acute distress, answers questions appropriately - Head Head exam: Present: atraumatic, normal inspection - Respiratory Respiratory exam: Present: CTAB. Absent: accessory muscle use, rales, rhonchi, wheezes - Cardiovascular Cardiovascular exam: Present: RRR, +S1, +S2. Absent: diastolic murmur, gallop, rubs, systolic murmur - GI/Abdominal GI/Abdominal exam: Present: normal bowel sounds, soft. Absent: distended, rebound, rigid - Extremities Exam Extremities exam: Absent: calf tenderness, pedal edema, tenderness - Neurological Exam Neurological exam: Present: alert, oriented X3 - Psychiatric Psychiatric exam: Present: normal affect, normal mood Internal Medicine: Result - Labs CBC & Chem 7: 03/07/17 05:06 03/07/17 05:06 Labs: Short CBC 03/07/17 Range/Units 05:06 WBC 5.4 D (4.3-11.1) K/mcL Hgb 12.4 (11.5-15.4) g/dL Hct 35.6 (35.3-44.9) % Plt Count 138 L (140-400) K/mcL Neutrophils # 2.9 (1.6-8.9) K/mcL BMP 03/06/17 03/07/17 16:41 05:06 Sodium 136 136 Potassium 4.3 D 3.2 L D Chloride 112 H 107 Carbon Dioxide 13 L 17 L BUN 2 L 2 L Creatinine 0.46 L 0.51 L Glucose 179 H 208 H Calcium 6.1 L D 7.2 L D Consult Discharge Plan - Plan Referrals: Mason Cleaning CNP [Primary Care Provider] - 03/14/17 2:40 pm
[2017-03-07] MEDS ORDERED: *HR* GlipiZIDE 5 MG TABLET PO SCH (17:00)
[2017-03-07] MEDS: *HR* Metformin 500 MG TABLET PO SCH (17:12)
[2017-03-07] MEDS: *HR* SitaGLIPtin 25 MG TABLET PO SCH (17:15)
[2017-03-07 17:50] LABS: BUN/Creatinine Ratio 4 (6-26); Calcium 7.7 mg/dL (8.6-10.8); Carbon Dioxide 17 mEq/L (19-29); Chloride 105 mEq/L (98-109); Glucose 225 mg/dL (70-99); Magnesium 1.8 mg/dL (1.6-2.6); Osmolality,Calculated 287 (280-300); Sodium 137 mEq/L (136-145); eGFR For African Americans > 60 (> 60); eGFR For Non-African Americans > 60 (> 60)
[2017-03-07 17:51] LABS: Blood Urea Nitrogen 2 mg/dL (7-20)
[2017-03-07 17:52] LABS: Potassium 4.1 mEq/L (3.5-4.5)
[2017-03-08] MEDS: *HR* LORazepam 1 MG TABLET PO PRN (01:29)
[2017-03-08] MEDS: *HR* Morphine 2 MG/ML SYRINGE IVP PRN ×2 (01:29→08:10)
[2017-03-08] MEDS: *HR* OxyCODONE/APAP 5/325 TABLET PO PRN ×2 (04:00→11:40)
[2017-03-08] MEDS: *HR* Heparin 5,000 UNIT/ML VIAL SQ SCH (06:15)
[2017-03-08 07:59] LABS: BUN/Creatinine Ratio 4 (6-26); Blood Urea Nitrogen 2 mg/dL (7-20); Calcium 7.7 mg/dL (8.6-10.8); Carbon Dioxide 23 mEq/L (19-29); Chloride 103 mEq/L (98-109); Glucose 202 mg/dL (70-99); Magnesium 1.4 mg/dL (1.6-2.6); Osmolality,Calculated 288 (280-300); Phosphorous 1.5 mg/dL (2.3-4.7); Potassium 3.1 mEq/L (3.5-4.5); Sodium 138 mEq/L (136-145); eGFR For African Americans > 60 (> 60); eGFR For Non-African Americans > 60 (> 60)
[2017-03-08] MEDS: Thiamine (B-1) 100 MG TABLET PO SCH (08:05)
[2017-03-08] MEDS: Folic Acid 1 MG TABLET PO SCH (08:06)
[2017-03-08] MEDS: *HR* Metformin 500 MG TABLET PO SCH (08:06)
[2017-03-08] MEDS: *HR* SitaGLIPtin 25 MG TABLET PO SCH (08:08)
[2017-03-08] MEDS: Multivit/Ca/Min/Fe/FA 1 TAB TABLET PO SCH (08:08)
[2017-03-08] MEDS ORDERED: *HR* Metformin 500 MG TABLET PO SCH (08:10)
[2017-03-08] MEDS: Insulin LISPRO 300 UNITS/3 ML VIAL SQ SCH ×2 (08:22→12:06)
[2017-03-08 08:31] LABS: Basophils # 0.1 K/mcL (0.0-0.2); Eosinophils # 0.1 K/mcL (0.0-0.6); Eosinophils % 1.8 %; Hematocrit 37.8 % (35.3-44.9); Hemoglobin 12.6 g/dL (11.5-15.4); Immature Granulocytes % 1.1 % (0-4); Lymphocytes # 2.3 K/mcL (0.6-4.6); Lymphocytes % 37.5 %; Mean Corpuscular HGB Conc 33.3 g/dL (31.6-35.5); Mean Platelet Volume 9.9 fL (9.4-12.4); Monocytes # 0.8 K/mcL (0.0-1.3); Monocytes % 12.4 %; Neutrophils # 2.8 K/mcL (1.6-8.9); Platelet Count 185 K/mcL (140-400); Red Cell Distribution Width 13.8 % (11.5-14.5); Segmented Neutrophils % 46.2 %
[2017-03-08] MEDS ORDERED: Magnesium Sulfate 2 GM in D5% in Water 100 ML IVPB ONE (12:14)
--- NOTE | 2017-03-08 12:30 | Discharge Summary ---
Date of Encounter: 03/08/17 Time of Encounter: 12:28 - Discharge Diagnosis (1) DKA (diabetic ketoacidoses) Priority: Primary Status: Resolved Qualifiers: Diabetes mellitus type: other specified (including EDGAR) Diabetes mellitus complication detail: without coma Qualified Code(s): E13.10 - Other specified diabetes mellitus with ketoacidosis without coma (2) Non-insulin dependent type 2 diabetes mellitus Priority: Secondary Status: Chronic (3) Acute alcoholic pancreatitis Priority: Primary Status: Resolved Qualifiers: Acute pancreatitis complication: no infection or necrosis Qualified Code(s) : K85.20 - Alcohol induced acute pancreatitis without necrosis or infection (4) Accelerated essential hypertension Priority: Secondary Status: Resolved (5) Alcohol dependence Priority: Secondary Status: Chronic Qualifiers: Substance use status: in withdrawal Complication of substance-induced condition: uncomplicated Qualified Code(s): F10.230 - Alcohol dependence with withdrawal, uncomplicated (6) Hypokalemia Priority: Secondary Status: Acute (7) Tobacco abuse Priority: Secondary Status: Chronic - Discharge Medications Prescriptions: Chlordiazepoxide [Librium] 25 mg PO TID #18 Insulin Glargine,Hum.rec.anlog [Lantus Solostar] 20 unit SQ HS #1 / metFORMIN [Glucophage] 1,000 mg PO BID #60 Sitagliptin Phosphate [Januvia] 50 mg PO DAILY #30 tab Home Medications: Pantoprazole Sodium [Protonix] 40 mg PO DAILY 12/21/16 [History] Folic Acid 1 mg PO DAILY 03/06/17 [History] Lisinopril [Zestril] 20 mg PO DAILY 03/06/17 [History] Magnesium Oxide [Magnesium] 400 mg PO DAILY 03/06/17 [History] Metoprolol Succinate 25 mg PO DAILY 03/06/17 [History] PARoxetine HCl [Paroxetine HCl] 40 mg PO DAILY 03/06/17 [History] Thiamine (B-1) [Vitamin B-1] 100 mg PO DAILY 03/06/17 [History] Chlordiazepoxide [Librium] 25 mg PO TID #18 03/08/17 [Rx] Insulin Glargine,Hum.rec.anlog [Lantus Solostar] 20 unit SQ HS #1 / 03/08/17 [Rx ] LORazepam [Ativan] 0.5 mg PO BID PRN #0 03/08/17 [Rx] Sitagliptin Phosphate [Januvia] 50 mg PO DAILY #30 tab 03/08/17 [Rx] metFORMIN [Glucophage] 1,000 mg PO BID #60 03/08/17 [Rx] Allergies/Adverse Reactions: Allergies No Known Allergies Allergy (Verified 11/25/16 16:01) Procedures/tests Complete & Pending: Procedures Performed prior 72 hours Category Date Time Status ECG 12 lead ECG [ECG] Routine Y 03/05/17 21:52 Completed Date of admission: 03/05/17 14:46 Primary care physician: Mason Cleaning CNP Consults: 03/05/17 15:31 Consult to Curriculum Development Specialist [CONS] Routine Reason for SW Consult: alcoholic, non-compliance with medications 03/07/17 08:36 Consult to Nutrition [CONS] Routine Comment: Consulting Provider: NUTRITION Reason for Dietary Consult: Diet Education - Patient Status Disposition: Home, Self-Care Condition: Good Overall status at discharge: patient is back to baseline - Discharge Instructions Follow Up With: Mason Cleaning CNP [Primary Care Provider] - 03/14/17 2:40 pm - Diet and Activity Activity: increase activity as tolerated Diet: diabetic diet Hospital course: This is a 37 y/o F with known recently diagnosed possible type 2 DM2 with metabolic syndrome, HbA1C 7.9 ( 11/2016 ), Chronic tobacco and alcohol dependence pt admitted with acute DKA and acute on chronic pancreatitis. Pt was started on Insulin gtt initially with aggressive IV hydration. Her BS started improving and her metabolic acidosis DKA got corrected on following day. Pt was switched to ISS + Levemir. Pt seems to be very non compliance with her medications and care. Her repeat HbA1C came back as 11.6. So I did residence counselor the pt abut importance eof taking all her medication, dietary modifications and physical activity. At this point I started her on PO med Metformin 1000mg BID, Januvia 50 mg daily and Lantus 20 U QHS. Also recommend to make a log on all her blood sugars before she sees her PCP. Will talk to PCP to update on her care. Pt was placed on CIWA protocol and started her on Librium scheduled doses for her alcohol withdraw symptoms. I did residence counselor the pt to quit drinking, she also willing to go to walk in alcohol rehab clinics. SW did talk to the pt and provided all the information regarding those clinics in this area. - Time Spent with Patient Total time spent providing and/or coordinating discharge services: Greater than 30 minutes (Spent 45 minutes on this patient's discharge summary due to complex medical problems and patient needed a lot of education regarding discharge instructions) - Constitutional Vitals: Temp Pulse Resp BP Pulse Ox 98.2 F 88 14 163/110 96 03/08/17 12:02 03/08/17 12:02 03/08/17 12:02 03/08/17 12:15 03/08/17 12:02 General appearance: Present: cooperative, A&O X 3, pleasant, no acute distress, answers questions appropriately - Head Head exam: Present: atraumatic, normal inspection - Respiratory Respiratory exam: Present: decreased breath sounds, wheezes. Absent: respiratory distress, rhonchi, stridor - Cardiovascular Cardiovascular exam: Present: RRR, +S1, +S2. Absent: systolic murmur - GI/Abdominal GI/Abdominal exam: Present: soft. Absent: rebound, rigid, tenderness - Extremities Exam Extremities exam: Absent: calf tenderness, pedal edema, tenderness - Neurological Exam Neurological exam: Present: alert, oriented X3 - Psychiatric Psychiatric exam: Present: normal affect, normal mood
[2017-03-08 15:48] VITALS: BP 148/112
== END 2017-03-08 17:02 | disposition home or self-care (01) | DRG 282 ==
LOC: 2NNU 14:46 → 3ANU 03-07 20:19
PROVIDERS: ADMIT Nurse Practitioner Family; ATTEND Family Medicine

== ENCOUNTER 2018-05-03 00:59 | Inpatient (IN) ==
[2018-05-03] MEDS ORDERED: Insulin Regular, Human 100 UNIT/ML IV PRN (02:36)
[2018-05-03] MEDS ORDERED: D5% in 0.45% NACL 1,000 ML IVC PRN (02:36)
[2018-05-03] MEDS ORDERED: *HR* Dextrose 50 % in Water (Syg) 50 ML SYRINGE IVP PRN ×2 (02:36→14:16)
[2018-05-03] MEDS ORDERED: Insulin Human Regular 100 UNIT in 0.9 % Sodium Chloride 100 ML IVC SCH (02:45)
[2018-05-03] MEDS ORDERED: 0.45 % Sodium Chloride w/KCl 20 MEQ/1,000 ML MLS IVC PRN (02:45)
[2018-05-03] MEDS ORDERED: diazePAM 10 MG/2 ML SYRINGE IVP PRN ×5 (03:43)
[2018-05-03 03:51] LABS: VBG HCO3 9 mEq/L (21-27); VBG PCO2 20 mmHg (41-51); VBG PH 7.26 pH Units (7.32-7.42); VBG PO2 58 mmHg (25-50)
[2018-05-03] MEDS ORDERED: *HR* LORazepam 2 MG/ML VIAL IVP PRN ×3 (03:55)
[2018-05-03 04:17] LABS: BUN/Creatinine Ratio 20 (6-26); Blood Urea Nitrogen 19 mg/dL (6-20); Calcium 9.2 mg/dL (8.6-10.3); Carbon Dioxide 9 mEq/L (23-29); Chloride 97 mEq/L (98-107); Glucose 397 mg/dL (70-105); Magnesium 2.1 mg/dL (1.6-2.6); Osmolality,Calculated 307 (280-300); Potassium 4.7 mEq/L (3.5-5.1); Sodium 139 mEq/L (136-145); eGFR For Non-African Americans > 60 (> 60)
[2018-05-03] MEDS: *HR* Promethazine 25 MG/ML VIAL IVP PRN (04:26)
--- NOTE | 2018-05-03 05:15 | Internal Med History&Physical ---
Date of Encounter: 05/03/18 Time of Encounter: 03:45 Internal Medicine - H&P: HPI Chief complaint: Elevated blood sugars Admitted From: Emergency Dept Plans for Post Hospital Care: Home History of present illness: Ms. Anderson is a 38 year old female with history of diabetes, alcohol abuse presents with nausea. Patient reports that she has been nauseous for the last couple days and her symptoms are becoming worse. She reports occasional episodes of vomiting. She reports she feels like she is in DKA. She is on multiple episodes of DKA in the past. She reports she is only taking long- acting insulin at night. She reports that she does not check her blood sugars. She reports chronic alcohol use. She reports to me that she drinks at least 3 times a week and when I questioned how much she drinks she says "way too much. " She reports that she is going through alcohol withdrawal in the past. She reports some blurred vision. She denies fever, chills, chest pain, shortness of breath, diarrhea, hematemesis, hematuria, lower extremity swelling. Past Med Surg Social Fam HX - Past Medical History Medical history: diabetes, GERD, hypertension Additional medical history: pancreatitis Psychiatric history: anxiety, depression, other - Past Surgical History Surgical History: other Additional surgical history: tonsillectomy - Social History Smoking Status: Current every day smoker Smokeless Tobacco Status: No Alcohol use: heavy Drug use: none - Family History Father Living Status: Still Living Hx Family Cardiac Disorders: Yes (HTN) Hx Family Respiratory Disorders: No Hx Family Cancer: Yes Hx Family GI Disorders: No Hx Family Endocrine Disorder: No Hx Family Neuromuscular Disorders: No Hx Family Neurologic Disorders: No Hx Family HEENT Disorders: No Hx Family Autoimmune Disorders: No Internal Medicine - H&P: Meds Insulin Glargine,Hum.rec.anlog [Basaglar Kwikpen U-100] 20 unit SQ HS 02/10/18 [ History] Pantoprazole Sodium [Protonix] 40 mg PO DAILY 02/10/18 [History] Chlordiazepoxide [Librium] 25 mg PO DAILY 2 Days #2 capsule 02/18/18 [Rx] Metoprolol XL (24 HR) Succ [Toprol Xl] 50 mg PO DAILY tab.er.24h 02/18/18 [Rx] Lisinopril [Zestril] 40 mg PO HS 05/02/18 [History] 3 Allergy/AdvReac Type Severity Reaction Status Date / Time No Known Allergies Allergy Verified 02/11/18 16:19 All Systems PM: A 10-system review of systems was performed and is negative for pertinent findings except as documented above in the HPI. - Constitutional Constitutional: no chills, no fever(s) - EENT Eyes: blurry vision, no loss of vision Nose, mouth and throat: no sinus pain, no sinus pressure, no sore throat - Cardiovascular Cardiovascular ROS IM: no chest pain, no dyspnea, no irregular heart rhythm, no palpitations, no syncope - Respiratory Respiratory: no cough, no dyspnea, no excessive phlegm production, no change in phlegm color, no pain with cough - Gastrointestinal Gastrointestinal: no abdominal pain, no diarrhea, no hematemesis, no hematochezia, no melena ( ), no nausea, no vomiting - Genitourinary Genitourinary: no dysuria, no hematuria, no urinary frequency, no urinary hesitancy, no urinary incontinence, no urinary urgency - Musculoskeletal Musculoskeletal ROS IM: no numbness, no tingling - Integumentary Integumentary IM: no erythema, no rash - Neurological Neurological ROS: no confusion, no disequilibrium, no dizziness, no frequent falls, no numbness, no tingling - Psychiatric Psychiatric: no auditory hallucinations, no visual hallucinations - Endocrine Endocrine IM: no polydipsia, no polyuria - Allergic/Immunologic Allergic/Immunologic: no tongue swelling, no throat swelling - Constitutional Vitals: Temp Pulse Resp BP Pulse Ox 98.1 F 126 20 99/86 100 05/03/18 03:29 05/03/18 05:00 05/03/18 05:00 05/03/18 05:00 05/03/18 05:00 General appearance: Present: A&O X 3, pleasant, no acute distress, answers questions appropriately Exam: . - Head Head exam: Present: atraumatic, normal inspection, normocephalic - Eye Eye exam: Present: EOMI, PERRL - ENT ENT exam: Present: mucous membranes dry, normal oropharynx - Respiratory Respiratory exam: Present: CTAB. Absent: rales, rhonchi, wheezes - Cardiovascular Cardiovascular exam: Present: RRR. Absent: gallop, irregular rhythm, systolic murmur - GI/Abdominal GI/Abdominal exam: Present: normal bowel sounds, soft. Absent: distended, tenderness - Extremities Exam Extremities exam: Present: warm. Absent: pedal edema, tenderness Additional comments: Ecchymosis to left anterior foot. No deformity. - Neurological Exam Neurological exam: Present: alert, CN II-XII intact, oriented X3, no focal deficits. Absent: facial droop, speech deficit Additional comments: mildly tremulous diffusely - Psychiatric Psychiatric exam: Present: anxious, normal affect, normal mood - Skin Skin exam: Present: dry, intact, warm Internal Med - H&P Results - Labs CBC & Chem 7: 05/03/18 03:38 Labs: BMP 05/03/18 03:38 Sodium 139 Potassium 4.7 Chloride 97 L Carbon Dioxide 9 L* BUN 19 Creatinine 0.93 Glucose 397 H Calcium 9.2 - ABG Interpretation ABG results: 05/03/18 03:48 VBG pH 7.26 L D VBG pCO2 20 L VBG pO2 58 H VBG HCO3 9 L - Assessment and plan (1) Diabetic ketoacidosis Current Visit: No Status: Acute Assessment and plan: Patient presented initially with blood sugar greater than 1000, bicarbonate 4, anion gap of 45. Likely due to medication noncompliance. Patient received a total of 3 L in the emergency department, continue IV fluid hydration and insulin infusion per protocol. Potassium stable, we will switch fluids to potassium replacement. BMP every 4 hours. Lactic acid also elevated likely due to severe dehydration, is trending down. No evidence of infection. EKG normal. Qualifiers: Diabetes mellitus type: type 2 Diabetes mellitus complication detail: without coma Qualified Code(s): E11.10 - Type 2 diabetes mellitus with ketoacidosis without coma (2) Alcohol withdrawal Current Visit: No Status: Acute Assessment and plan: Patient reports chronic alcohol use and has had withdrawal symptoms in the past. She reports last drink was approximately 36 hours ago. Mildly tremulous at this time but no evidence of worsening withdrawal symptoms however patient is extremely high risk for more severe withdrawal. CIWA protocol ordered, will start Precedex infusion. We will supplement vitamins with banana bag 3 days. Qualifiers: Complication of substance-induced condition: with delirium Qualified Code(s ): F10.231 - Alcohol dependence with withdrawal delirium (3) Hyperammonemia Current Visit: Yes Status: Acute Assessment and plan: Ammonia elevated at 122. Concern for underlying liver disease. LFTs are normal including bilirubin,, PTT, platelets. Evidence of fatty liver on CT. Will check right upper quadrant ultrasound. Patient is alert and oriented with this ammonia levels so will hold off on treating with lactulose at this time as patient is nothing by mouth. (4) Diabetes mellitus Current Visit: No Status: Chronic Assessment and plan: Poorly control resulting in DKA. Patient reports she only takes long-acting insulin at home and does not check her blood sugars. She states her insulin as prescribed by a "doctor in [place]." Treatment for DKA as above. We will check hemoglobin A1c. Qualifiers: Diabetes mellitus type: type 2 Diabetes mellitus alf insulin use: without alf use Diabetes mellitus complication status: with unspecified complications Qualified Code(s): E11.8 - Type 2 diabetes mellitus with unspecified complications (5) DVT prophylaxis Current Visit: Yes Status: Acute Assessment and plan: Heparin 5000 units subcutaneous twice a day - Time Spent With Patient Total time spent is greater than 50% in coordination of care (as documented) at patient's floor/unit and/or counseling patient:
[2018-05-03] MEDS: Dexmedetomidine HCl 400 MCG/100 ML MLS IVC SCH (05:16)
[2018-05-03] MEDS: *HR* Heparin 5,000 UNIT/ML VIAL SQ SCH ×2 (05:45→17:16)
[2018-05-03] MEDS ORDERED: WATER IV ONE (07:09)
[2018-05-03] MEDS ORDERED: D5 IV ONE (07:09)
[2018-05-03] MEDS ORDERED: FOMEPIZOLE IV ONE (07:09)
[2018-05-03] MEDS: D5% in 0.45% NACL w KCl 20 MEQ/1,000 ML MLS IVC PRN ×2 (08:19→14:17)
--- NOTE | 2018-05-03 09:48 | Pulmonology Consult Note ---
<Hakan Palma S - Last Filed: 05/03/18 10:53> Date of Encounter: 05/03/18 Time of Encounter: 07:30 Assessment and Plan (1) Diabetic ketoacidosis Current Visit: No Status: Acute Patient's initial glucose of >1000 Per notes, given 3L fluid at [place] [facility] Started on IV insulin Given 2 amps of bicarbonate for pH of 7.07 Started on KCl in D5 0.45% NS Recent POC glucose reads of 97 > 77 > 219 now Goal of 140-180 in ICU Initial anion gap of 45 is now 12 Qualifiers: Diabetes mellitus type: type 2 Diabetes mellitus complication detail: without coma Qualified Code(s): E11.10 - Type 2 diabetes mellitus with ketoacidosis without coma (2) Alcohol withdrawal Current Visit: No Status: Acute Patient has previous hospitalizations for alcohol withdrawal Last drink approximately 36 hours ago Patient was tremulous and hallucinating upon arrival CIWA protocol Patient currently on precedex and lethargic now Ativan IV PRN Continue banana bag with vitamin replacement for 3 days Qualifiers: Complication of substance-induced condition: with delirium Qualified Code(s ): F10.231 - Alcohol dependence with withdrawal delirium (3) Hypotension Current Visit: Yes Status: Acute Per notes, patient received 3L of NS in [place] ED Patient currently on precedex for alcohol withdrawal Patient's current BP is 83/57 Ordered 1 liter LR bolus x2 Qualifiers: Hypotension type: hypotension due to hypovolemia Qualified Code(s): I95.89 - Other hypotension; E86.1 - Hypovolemia (4) Alcoholism Current Visit: No Status: Chronic Patient has been hospitalized multiple times for alcohol withdrawal She states she drinks "about 3 buzzballs every day" Toxicology showed ethyl alcohol of 2 Gave 1 IV infusion of fomepizole for possible methanol intoxication Repeat calculated osmolar gap is ok at 292, will discontinue fomepizole infusions (5) Tachycardia Current Visit: No Status: Acute Patient's HR was 108 this morning, likey 2/2 hypovolemia from DKA Ordered 2 liter boluses of LR Patient's recent HR is 95 (6) Hyperammonemia Current Visit: Yes Status: Acute Initial ammonia level was 122 Repeat was improved at 54, will hold off on lactulose for now LFTs are normal Alkaline Phosphatase elevated at 207 CT showed fatty liver and hyperdense material within gallbladder suggestive of biliary sludge Ordered RUQ US (7) DVT prophylaxis Current Visit: Yes Status: Acute Subcutaneous heparin History of Present Illness Consult date: 05/03/18 Requesting physician: Ana Martin Reason for consult: other (DKA and alcohol withdrawal) Chief complaint: nausea and vomiting History of present illness: 38 year old female with PMHx of DM1 and alcohol abuse presented to [place] ED on 05/02 with several days of nausea and vomiting. Patient states she feels like she is in DKA. She has multiple episodes of DKA in the past. She takes 20 units of long-acting insulin at night, but she doesn't check her blood glucose levels regularly. She also admits to chronic alcohol use. She drinks "about 3 buzzballs every day." She has been hospitalized for alcohol withdrawal in the past. Her last drink was approximately 36 hours ago. Initial blood glucose was over 1000, patient was given 4L fluid in ED and started on insulin drip. Initial ABG showed pH of 7.07. Patient given [address] showed hiatal hernia and fatty liver. Patient's ammonia level was elevated at 122, but lactulose was not given due to electrolyte abnormalities and patient was NPO. Patient transferred to [place] [facility] ICU for further monitoring. Patient on precedex and very lethargic in ICU this morning. She admits to some nausea. She denies fevers/chills, CP, SOB, abdominal pain. Past Med Surg Social Fam HX - Past Medical History Medical history: diabetes, GERD, hypertension Additional medical history: pancreatitis Psychiatric history: anxiety, depression, other - Past Surgical History Surgical History: other Additional surgical history: tonsillectomy - Social History Smoking Status: Current every day smoker Smokeless Tobacco Status: No Alcohol use: heavy Drug use: none - Family History Father Living Status: Still Living Hx Family Cardiac Disorders: Yes (HTN) Hx Family Respiratory Disorders: No Hx Family Cancer: Yes Hx Family GI Disorders: No Hx Family Endocrine Disorder: No Hx Family Neuromuscular Disorders: No Hx Family Neurologic Disorders: No Hx Family HEENT Disorders: No Hx Family Autoimmune Disorders: No Medications and Allergies Insulin Glargine,Hum.rec.anlog [Basaglar Kwikpen U-100] 20 unit SQ HS 02/10/18 [ History] Pantoprazole Sodium [Protonix] 40 mg PO DAILY 02/10/18 [History] Chlordiazepoxide [Librium] 25 mg PO DAILY 2 Days #2 capsule 02/18/18 [Rx] Lisinopril 30 mg PO DAILY 05/03/18 [History] 3 Allergy/AdvReac Type Severity Reaction Status Date / Time No Known Allergies Allergy Verified 02/11/18 16:19 All Systems: The remainder of the systems were reviewed and are negative Physical Examination Vital Signs: Vital Signs, Last 4 Hours Temp Pulse Resp BP Pulse Ox 05/03/18 08:00 108 16 91/64 93 05/03/18 07:43 98.8 F 05/03/18 07:28 108 05/03/18 07:00 112 16 91/60 94 05/03/18 06:00 116 20 100/69 95 General appearance: lethargic (on precedex) Eyes: nonicteric Effort: normal Auscultation: bilateral: clear Cardiovascular: regular rate and rhythm Gastrointestinal: soft, tender (in epigastric region, otherwise non-tender), non -distended Integumentary: normal Extremities: no cyanosis, no edema Musculoskeletal: no deformities mood appropriate Results - Laboratory Findings CBC and BMP: 05/03/18 09:25 Abnormal lab findings: Abnormal lab results VBG pH 7.26 pH Units (7.32-7.42) L D 05/03/18 03:48 VBG pCO2 20 mmHg (41-51) L 05/03/18 03:48 VBG pO2 58 mmHg (25-50) H 05/03/18 03:48 VBG HCO3 9 mEq/L (21-27) L 05/03/18 03:48 Chloride 97 mEq/L (98-107) L 05/03/18 03:38 Carbon Dioxide 9 mEq/L (23-29) L* 05/03/18 03:38 Glucose 397 mg/dL (70-105) H 05/03/18 03:38 Calculated Osmolality 307 (280-300) H 05/03/18 03:38 Lactic Acid 3.0 mmol/L (0.5-2.2) H 05/03/18 03:38 - Microbiology Findings Microbiology Findings: Microbiology, Last 48 Hours 05/03/18 03:37 Blood Culture - Preliminary Peripheral Venipuncture Culture is incubating and being continuously monitored for growth. Final report to follow. 05/03/18 03:38 Blood Culture - Preliminary Peripheral Venipuncture Culture is incubating and being continuously monitored for growth. Final report to follow. - Clinical Findings Intake & Output: Intake & Output 05/02/18 05/03/18 05/03/18 23:59 07:59 15:59 Intake Total 36 / 36 500 / 500 Output Total 550 / 550 Balance -514 / -514 500 / 500 Weight 69.1 kg Consult Discharge Plan - Plan Referrals: [facility], [facility] [Primary Care Provider] - <Ana Martin - Last Filed: 05/03/18 12:12> Date of Encounter: 05/03/18 All Systems: The remainder of the systems were reviewed and are negative Physical Examination Vital Signs: Vital Signs, Last 4 Hours Temp Pulse Resp BP Pulse Ox 05/03/18 09:00 104 16 83/55 94 05/03/18 08:00 108 16 91/64 93 05/03/18 07:43 98.8 F 05/03/18 07:28 108 05/03/18 07:00 112 16 91/60 94 05/03/18 06:00 116 20 100/69 95 Results - Laboratory Findings CBC and BMP: 05/03/18 11:00 05/03/18 09:25 Abnormal lab findings: Abnormal lab results VBG pH 7.26 pH Units (7.32-7.42) L D 05/03/18 03:48 VBG pCO2 20 mmHg (41-51) L 05/03/18 03:48 VBG pO2 58 mmHg (25-50) H 05/03/18 03:48 VBG HCO3 9 mEq/L (21-27) L 05/03/18 03:48 Chloride 97 mEq/L (98-107) L 05/03/18 03:38 Carbon Dioxide 9 mEq/L (23-29) L* 05/03/18 03:38 Glucose 397 mg/dL (70-105) H 05/03/18 03:38 Calculated Osmolality 307 (280-300) H 05/03/18 03:38 Lactic Acid 3.0 mmol/L (0.5-2.2) H 05/03/18 03:38 - Microbiology Findings Microbiology Findings: Microbiology, Last 48 Hours 05/03/18 03:37 Blood Culture - Preliminary Peripheral Venipuncture Culture is incubating and being continuously monitored for growth. Final report to follow. 05/03/18 03:38 Blood Culture - Preliminary Peripheral Venipuncture Culture is incubating and being continuously monitored for growth. Final report to follow. - Clinical Findings Intake & Output: Intake & Output 05/02/18 05/03/18 05/03/18 23:59 07:59 15:59 Intake Total 36 / 36 601 / 601 Output Total 550 / 550 Balance -514 / -514 601 / 601 Weight 69.1 kg - Attending Attestation I saw and evaluated this patient and my medical decision-making was reviewed with the Resident Physician. I agree with the documented findings, disposition and treatment plan as described except to the extent set forth below. We independently had [id number] contact with the patient Patient seen and examined at bedside Labs, radiology, chart personally reviewed. Management was reviewed during multidisciplinary critical care rounds. 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 Patient is on Precedex will continue to monitor. To give thiamine and folate supplementation Pulm: Patient has acceptable oxygenation and ventilation no clinical evidence of pneumonia that triggered her diabetic ketoacidosis Cards: Patient blood pressure is borderline probably she still volume depleted will give 2 L of lactated Ringer and will reassess to insert EP IV. FEN-GI: Nothing by mouth for now as patient anion gap closed only once Renal: Labs and output reviewed in came with high anion gap acidosis with a chronic alcohol ingestion was concern for toxic alcohol give 1 dose of fomipezole osmolar gap came around 15 and her gap was closed as low suspicion for toxic alcohol ingestion and all this high anion gap is due to diabetic ketoacidosis. ID: No active infective issues Heme/Onc: Thromboprophylaxis Endo: Patient presented with diabetic ketoacidosis due to poor complains of insulin regimen as she takes only the long-acting insulin she does not take any supplemental short-acting insulin she needs to be followed closely by the case management and she should follow outpatient endocrinology as she coming for recurrent admissions for diabetic ketoacidosis. Patient needs extensive diabetic education and about the rational about using short-acting supplemental insulin on top of her long-acting insulin. Integ/MSK: Skin Care per routine ICU Nursing Protocol to prevent ulcers. Lines: All lines examined without evidence of infection : Dispo: To remain in the ICU CODE: Full Code
[2018-05-03 09:51] LABS: Estimated Average Glucose 447 mg/dl; Hemoglobin A1C 17.2 %
[2018-05-03 10:09] LABS: Albumin 3.7 g/dL (3.5-5.7); Albumin/Globulin Ratio 1.4 (1.1-2.2); Bilirubin,Direct 0.1 mg/dL (0.0-0.2); Bilirubin,Indirect 0.3 mg/dL (0.0-1.2); Bilirubin,Total 0.4 mg/dL (0.3-1.0); Globulin 2.6 g/dL (2.4-3.5); Total Protein 6.3 g/dL (6.4-8.9)
[2018-05-03 10:15] LABS: Potassium 3.8 mEq/L (3.5-5.1)
[2018-05-03 10:16] LABS: BUN/Creatinine Ratio 32 (6-26); Blood Urea Nitrogen 20 mg/dL (6-20); Calcium 8.8 mg/dL (8.6-10.3); Carbon Dioxide 21 mEq/L (23-29); Chloride 107 mEq/L (98-107); Glucose 86 mg/dL (70-105); Osmolality,Calculated 292 (280-300); Sodium 140 mEq/L (136-145); eGFR For Non-African Americans > 60 (> 60)
[2018-05-03] MEDS ORDERED: Ringers Solution, Lactated 1,000 ML IVC ONE ×4 (10:26→16:20)
[2018-05-03 11:21] LABS: Basophils # 0.1 K/mcL (0.0-0.2); Basophils % 0.6 %; Eosinophils % 0.2 %; Immature Granulocytes % 0.9 % (0-4); Lymphocytes # 2.7 K/mcL (0.6-4.6); Mean Corpuscular HGB Conc 34.1 g/dL (31.6-35.5); Mean Corpuscular Hemoglobin 31.1 pg (28.0-33.3); Mean Platelet Volume 10.4 fL (9.4-12.4); Monocytes # 2.3 K/mcL (0.0-1.3); Monocytes % 16.1 %; Neutrophils # 8.9 K/mcL (1.6-8.9); Nucleated Red Blood Cells 0.1 /100 WBC (0); Platelet Count 117 K/mcL (140-400); Red Blood Count 3.51 M/mcL (3.82-4.97); Red Cell Distribution Width 12.5 % (11.5-14.5); Segmented Neutrophils % 63.2 %
[2018-05-03 11:22] LABS: Hemoglobin 10.9 g/dL (11.5-15.4); Mean Corpuscular Volume 91.2 fL (83.0-100.0)
[2018-05-03 13:45] LABS: BUN/Creatinine Ratio 36 (6-26); Blood Urea Nitrogen 20 mg/dL (6-20); Calcium 8.4 mg/dL (8.6-10.3); Carbon Dioxide 24 mEq/L (23-29); Chloride 107 mEq/L (98-107); Glucose 70 mg/dL (70-105); Osmolality,Calculated 285 (280-300); Potassium 4.2 mEq/L (3.5-5.1); Sodium 137 mEq/L (136-145); eGFR For Non-African Americans > 60 (> 60)
[2018-05-03] MEDS ORDERED: D5% in Water 1,000 ML IVC PRN (14:16)
[2018-05-03] MEDS ORDERED: Dextrose Gel 15 GM/37.5 ML TUBE PO PRN ×2 (14:16)
[2018-05-03] MEDS: Insulin DETEMIR 100 UNIT/ML X5UNITS SQ SCH (15:55)
[2018-05-03] MEDS ORDERED: Insulin LISPRO 300 UNITS/3 ML VIAL SQ SCH ×2 (16:30→21:00)
[2018-05-03 16:56] LABS: VBG HCO3 21 mEq/L (21-27); VBG PCO2 40 mmHg (41-51); VBG PH 7.34 pH Units (7.32-7.42); VBG PO2 62 mmHg (25-50)
[2018-05-03 17:11] LABS: BUN/Creatinine Ratio 44 (6-26); Blood Urea Nitrogen 21 mg/dL (6-20); Calcium 8.1 mg/dL (8.6-10.3); Carbon Dioxide 22 mEq/L (23-29); Chloride 105 mEq/L (98-107); Glucose 157 mg/dL (70-105); Osmolality,Calculated 284 (280-300); Potassium 4.8 mEq/L (3.5-5.1); Sodium 134 mEq/L (136-145); eGFR For Non-African Americans > 60 (> 60)
[2018-05-03 17:12] LABS: Troponin I < 0.03 ng/mL (< 0.04)
[2018-05-03 17:25] LABS: Thyroid Stimulating Hormone 1.521 mcIU/mL (0.340-5.600)
[2018-05-03] MEDS ORDERED: Thiamine (B-1) 100 MG, Folic Acid 1 MG, MVI, adult with vitamin K 10 ML in 0.9 % Sodi... IVPB SCH (18:00)
[2018-05-04] MEDS: *HR* Promethazine 25 MG/ML VIAL IVP PRN ×2 (03:32→12:03)
[2018-05-04 05:50] LABS: Eosinophils % 0.2 %
[2018-05-04 05:52] LABS: Hemoglobin 11.6 g/dL (11.5-15.4); Immature Platelets 4.9 % (1.1-6.1); Mean Corpuscular HGB Conc 33.1 g/dL (31.6-35.5); Mean Corpuscular Hemoglobin 30.8 pg (28.0-33.3); Mean Corpuscular Volume 92.8 fL (83.0-100.0); Mean Platelet Volume 10.4 fL (9.4-12.4); Red Blood Count 3.77 M/mcL (3.82-4.97); Red Cell Distribution Width 12.7 % (11.5-14.5); Segmented Neutrophils % 76.9 %
[2018-05-04 05:53] LABS: Basophils % 0.3 %; Immature Granulocytes % 1.5 % (0-4); Lymphocytes # 1.1 K/mcL (0.6-4.6); Lymphocytes % 17.6 %; Monocytes # 0.2 K/mcL (0.0-1.3); Monocytes % 3.5 %; Neutrophils # 4.6 K/mcL (1.6-8.9); Nucleated Red Blood Cells 0.3 /100 WBC (0)
[2018-05-04] MEDS: *HR* Heparin 5,000 UNIT/ML VIAL SQ SCH ×2 (06:15→17:15)
[2018-05-04 06:28] LABS: Platelet Count 93 K/mcL (140-400)
[2018-05-04 06:31] LABS: BUN/Creatinine Ratio 26 (6-26); Blood Urea Nitrogen 14 mg/dL (6-20); Calcium 8.6 mg/dL (8.6-10.3); Carbon Dioxide 16 mEq/L (23-29); Chloride 103 mEq/L (98-107); Glucose 270 mg/dL (70-105); Osmolality,Calculated 288 (280-300); Sodium 134 mEq/L (136-145); eGFR For Non-African Americans > 60 (> 60)
[2018-05-04] MEDS ORDERED: Insulin LISPRO 300 UNITS/3 ML VIAL SQ SCH (07:34)
[2018-05-04] MEDS ORDERED: Hydrocortisone Sodium Succ 100 MG/2 ML VIAL IVP SCH ×2 (07:34)
--- NOTE | 2018-05-04 08:13 | Pulmonology Progress Note ---
<Ana Martin - Last Filed: 05/04/18 09:10> Date of Encounter: 05/04/18 Objective PUL Vital signs: Last Vital Signs Temp 98.3 F 05/04/18 07:25 Pulse 74 05/04/18 08:00 Resp 16 05/04/18 08:00 BP 126/87 05/04/18 08:00 Pulse Ox 99 05/04/18 08:00 Results - Laboratory Findings CBC and BMP: 05/04/18 05:34 05/04/18 05:34 Abnormal lab findings: Abnormal lab results RBC 3.77 M/mcL (3.82-4.97) L 05/04/18 05:34 Hct 35.0 % (35.3-44.9) L 05/04/18 05:34 Plt Count 93 K/mcL (140-400) L 05/04/18 05:34 Nucleated RBCs/100 WBC 0.3 /100 WBC (0) H 05/04/18 05:34 VBG pCO2 40 mmHg (41-51) L 05/03/18 16:50 VBG pO2 62 mmHg (25-50) H 05/03/18 16:50 Sodium 134 mEq/L (136-145) L 05/04/18 05:34 Carbon Dioxide 16 mEq/L (23-29) L 05/04/18 05:34 Creatinine 0.53 mg/dL (0.60-1.20) L 05/04/18 05:34 Glucose 270 mg/dL (70-105) H 05/04/18 05:34 POC Glucose 301 mg/dL (70-99) H 05/04/18 07:07 Hemoglobin A1c 17.2 % (-5.6) H 05/03/18 09:25 Serum Osmolality 302 mOsm/kg (280-300) H 05/03/18 09:25 Alkaline Phosphatase 107 Units/L (34-104) H 05/03/18 09:25 Ammonia 54 mcmol/L (16-53) H 05/03/18 09:25 Serum Total Protein 6.3 g/dL (6.4-8.9) L 05/03/18 09:25 - Microbiology Findings Microbiology Findings: Microbiology, Last 48 Hours 05/03/18 03:37 Blood Culture - Preliminary Peripheral Venipuncture Culture is incubating and being continuously monitored for growth. Final report to follow. 05/03/18 03:38 Blood Culture - Preliminary Peripheral Venipuncture Culture is incubating and being continuously monitored for growth. Final report to follow. - Clinical Findings Intake & Output: Intake & Output 05/03/18 05/04/18 05/04/18 23:59 07:59 15:59 Intake Total 1504 / 1504 14 / 14 1912.2 / 1911.2 Output Total 2275 / 2275 Balance 1504 / 1504 -2261 / -2261 1911.2 / 1911.2 Weight 69.1 kg Consult Discharge Plan - Plan Referrals: Mason Cleaning, TELEGRAPH AND TELETYPE OPERATOR [Primary Care Provider] - - Attending Attestation - Attending Attestation I saw and evaluated this patient and my medical decision-making was reviewed with the Resident Physician. I agree with the documented findings, disposition and treatment plan as described except to the extent set forth below. We independently had [id number] contact with the patient Patient seen and examined at bedside Labs, radiology, chart personally reviewed. Management was reviewed during multidisciplinary critical care rounds. 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 Patient is on Precedex will continue to monitor. To give thiamine and folate supplementation. 05/04 To take her off precedex and see how she does Pulm: Patient has acceptable oxygenation and ventilation . Cards: Patient is hemodynamically stable resuscitated with fluids patient might have some related to insufficiency responded well to hydrocortisone FEN-GI: Advance diet as tolerated Renal: Labs and output reviewed anion gap is open will increase the dose of Insulin ID: No active infective issues Heme/Onc: Thromboprophylaxis. Endo: Patient presented with diabetic ketoacidosis due to poor complains of insulin regimen as she takes only the long-acting insulin she does not take any supplemental short-acting insulin she needs to be followed closely by the case management and she should follow outpatient endocrinology as she coming for recurrent admissions for diabetic ketoacidosis. Patient needs extensive diabetic education and about the rational about using short-acting supplemental insulin on top of her long-acting insulin. Patient has relative adrenocortical insufficiency responded well to hydrocortisone because of increased blood sugar will reduce hydrocortisone to 50 mg every 8 hrs. Integ/MSK: Skin Care per routine ICU Nursing Protocol to prevent ulcers. Lines: All lines examined without evidence of infection : Dispo: To transfer to telemetry. CODE: Full Code <Hakan Palma - Last Filed: 05/04/18 17:13> Date of Encounter: 05/04/18 Time of Encounter: 07:30 Assessment and Plan (1) Diabetic ketoacidosis Current Visit: No Status: Inactive Patient's initial glucose of >1000 Per notes, given 3L fluid at [facility] Initially on IV insulin, discontinued now Started on levemir 25 units daily High dose sliding scale insulin POC glucose 307 Goal of 140-180 in ICU Initial anion gap of 45 is now closed Transferred to floor Qualifiers: Diabetes mellitus type: type 2 Diabetes mellitus complication detail: without coma Qualified Code(s): E11.10 - Type 2 diabetes mellitus with ketoacidosis without coma (2) Alcohol withdrawal Current Visit: No Status: Acute Patient has previous hospitalizations for alcohol withdrawal Last drink approximately 60 hours ago Patient was tremulous and hallucinating upon arrival CIWA protocol Patient currently weaned off precedex and is doing well, no agitation Ativan IV PRN Continue banana bag with vitamin replacement Qualifiers: Complication of substance-induced condition: with delirium Qualified Code(s ): F10.231 - Alcohol dependence with withdrawal delirium (3) Hypotension Current Visit: Yes Status: Acute Per notes, patient received 3L of NS in [facility] Patient given 4L of LR in ICU Patient currently on precedex for alcohol withdrawal Random cortisol was 14.3 Patient on IV hydrocortisone 50 mg Q8hr Patient's current BP is 107/81 Qualifiers: Hypotension type: hypotension due to hypovolemia Qualified Code(s): I95.89 - Other hypotension; E86.1 - Hypovolemia (4) Alcoholism Current Visit: No Status: Chronic Patient has been hospitalized multiple times for alcohol withdrawal She states she drinks "about 3 buzzballs every day" Toxicology showed ethyl alcohol of 2 Gave 1 IV infusion of fomepizole for possible methanol intoxication Repeat calculated osmolar gap is ok at 292, will discontinue fomepizole infusions (5) Tachycardia Current Visit: No Status: Acute Patient's HR was 108 this morning, likey 2/2 hypovolemia from DKA Received 4 liter boluses of LR in ICU Patient's recent HR is 74 (6) Hyperammonemia Current Visit: Yes Status: Acute Initial ammonia level was 122 Repeat was improved at 54, will hold off on lactulose for now LFTs are normal Alkaline Phosphatase elevated at 207 CT showed fatty liver and hyperdense material within gallbladder suggestive of biliary sludge RUQ US showed hepatic steatosis, gallbladder sludge, 1.6 cm renal cyst (7) DVT prophylaxis Current Visit: Yes Status: Acute Subcutaneous heparin Subjective Principal diagnosis: diabetic ketoacidosis Interval history: Patient doing well this morning with no complaints. She was on and off precedex overnight for agitation. She is currently resting well without precedex this morning. Patient is asking for food this morning. She denies CP , SOB, fevers/chills, nausea/vomiting. Objective PUL Vital signs: Last Vital Signs Temp 98.3 F 05/04/18 07:25 Pulse 71 05/04/18 07:36 Resp 16 05/04/18 07:00 BP 110/76 05/04/18 07:00 Pulse Ox 99 05/04/18 07:00 General appearance: no acute distress Eyes: nonicteric Effort: normal Auscultation: bilateral: clear Cardiovascular: regular rate and rhythm Gastrointestinal: soft, non-tender Integumentary: normal Extremities: no cyanosis Musculoskeletal: no deformities normal mental status mood appropriate, affect normal Results - Laboratory Findings CBC and BMP: 05/04/18 05:34 05/04/18 05:34 Abnormal lab findings: Abnormal lab results RBC 3.77 M/mcL (3.82-4.97) L 05/04/18 05:34 Hct 35.0 % (35.3-44.9) L 05/04/18 05:34 Plt Count 93 K/mcL (140-400) L 05/04/18 05:34 Nucleated RBCs/100 WBC 0.3 /100 WBC (0) H 05/04/18 05:34 VBG pCO2 40 mmHg (41-51) L 05/03/18 16:50 VBG pO2 62 mmHg (25-50) H 05/03/18 16:50 Sodium 134 mEq/L (136-145) L 05/04/18 05:34 Carbon Dioxide 16 mEq/L (23-29) L 05/04/18 05:34 Creatinine 0.53 mg/dL (0.60-1.20) L 05/04/18 05:34 Glucose 270 mg/dL (70-105) H 05/04/18 05:34 POC Glucose 301 mg/dL (70-99) H 05/04/18 07:07 Hemoglobin A1c 17.2 % (-5.6) H 05/03/18 09:25 Serum Osmolality 302 mOsm/kg (280-300) H 05/03/18 09:25 Alkaline Phosphatase 107 Units/L (34-104) H 05/03/18 09:25 Ammonia 54 mcmol/L (16-53) H 05/03/18 09:25 Serum Total Protein 6.3 g/dL (6.4-8.9) L 05/03/18 09:25 - Microbiology Findings Microbiology Findings: Microbiology, Last 48 Hours 05/03/18 03:37 Blood Culture - Preliminary Peripheral Venipuncture Culture is incubating and being continuously monitored for growth. Final report to follow. 05/03/18 03:38 Blood Culture - Preliminary Peripheral Venipuncture Culture is incubating and being continuously monitored for growth. Final report to follow. - Clinical Findings Intake & Output: Intake & Output 05/03/18 05/04/18 05/04/18 23:59 07:59 15:59 Intake Total 1504 / 1504 Output Total 2275 / 2275 Balance 1504 / 1504 -2261 / -2261 Weight 69.1 kg
[2018-05-04] MEDS: Insulin DETEMIR 100 UNIT/ML X5UNITS SQ SCH (08:35)
[2018-05-04] MEDS: Insulin LISPRO 300 UNITS/3 ML VIAL SQ SCH ×4 (08:35→20:48)
[2018-05-04] MEDS: Dexmedetomidine HCl 400 MCG/100 ML MLS IVC SCH (09:02)
[2018-05-04] MEDS ORDERED: Insulin DETEMIR 100 UNIT/ML X5UNITS SQ ONE (09:12)
[2018-05-04] MEDS ORDERED: *HR* LORazepam 2 MG/ML VIAL IVP PRN (12:30)
[2018-05-04] MEDS ORDERED: D5% in Water 1,000 ML IVC PRN (12:30)
[2018-05-04] MEDS ORDERED: *HR* Dextrose 50 % in Water (Syg) 50 ML SYRINGE IVP PRN (12:30)
[2018-05-04] MEDS ORDERED: Dextrose Gel 15 GM/37.5 ML TUBE PO PRN ×2 (12:30)
[2018-05-04] MEDS: Hydrocortisone Sodium Succ 100 MG/2 ML VIAL IVP SCH (15:51)
[2018-05-04] MEDS ORDERED: Thiamine (B-1) 100 MG, Folic Acid 1 MG, MVI, adult with vitamin K 10 ML in 0.9 % Sodi... IVPB SCH (18:00)
[2018-05-05] MEDS: Hydrocortisone Sodium Succ 100 MG/2 ML VIAL IVP SCH ×4 (00:10→23:14)
[2018-05-05] MEDS: *HR* LORazepam 2 MG/ML VIAL IVP PRN ×7 (00:11→23:14)
[2018-05-05] MEDS: *HR* Heparin 5,000 UNIT/ML VIAL SQ SCH ×2 (06:08→17:57)
[2018-05-05] MEDS: Acetaminophen 325 MG TABLET PO PRN ×3 (06:08→23:14)
[2018-05-05] MEDS: Insulin LISPRO 300 UNITS/3 ML VIAL SQ SCH ×6 (07:59→21:10)
[2018-05-05] MEDS ORDERED: Insulin DETEMIR 100 UNIT/ML X5UNITS SQ SCH ×2 (09:00)
--- NOTE | 2018-05-05 10:47 | Internal Med Progress Note ---
Hospitalist Progress Note - Encounter Date of Encounter: 05/05/18 Time of Encounter: 10:47 - Subjective Interval History: Patient seen and examined at bedside. Patient no acute overnight events. Patient transferred out of ICU yesterday. Patient does have some discomfort in her left elbow where she had an IV was some bruising. Patient states that she feels anxious. Patient denies any chest pain or shortness breath, nausea, vomiting, diarrhea. Patient has been afebrile. Blood pressure has been improved with corticosteroids. - Exam Vitals: Temp Pulse Resp BP Pulse Ox 98.3 F 89 16 139/98 98 05/05/18 08:30 05/05/18 08:30 05/05/18 08:30 05/05/18 08:30 05/05/18 08:30 Exam: Constitutional: No acute distress, Alert Psych: AAO x 3 HEENT: NCAT, EOMI Neck: supple, no JVD Cardio: regular rate and rhythm, +s1s2, no murmurs Resp: clear to ascultation bilaterally Abd: soft, non tender/non distended, positive bowel sounds Extremities: left upper extremity with PICC with no erythema, LUE mildly swollen , Left antecubital area with ecymoses at site of prior IV that has been removed , no significant erythema and no crepitus or open wounds; ecchymosis also noted and left anterior wrist; patient also has right antecubital erythema with slight ecchymosis and patient states that she believes she had an IV in this area as well; there is also no crepitus in this area Neuro: no focal deficits appreciated Lymph: no adenopahty apprecitated - Assessment and Plan (1) Diabetic ketoacidosis Current Visit: Yes Status: Inactive Assessment and Plan: -Patient initially presented with DKA with severely elevated blood sugar and an anion gap of 45 -Blood sugars were improved and the patient was managed in the ICU. Patient was transferred out yesterday. -Last anion gap yesterday was 15 -We will check BMP this am as bicarb was decreasing yesterday from 22 to 16 -Remains hyperglycemic in the 200s and 300s -Continue long-acting insulin will increase from 25 units daily to 35 units daily; will give additional 10 units now as the patient received am dose of 25units -And mealtime coverage start with 5 units of lispro with meals and titrate up accordingly -Continue sliding scale insulin coverage and monitor amount given -Patient with recurrent DKA, I explained the importance of long-acting and mealtime coverage and importance with compliance with medications; she states she understands (2) Alcohol withdrawal Current Visit: Yes Status: Acute Assessment and Plan: -Continue CIWA protocol -3mg ativan given today -start multivitamin -folic acid -thiamine -strongly encouraged alcohol cessation -off precedex gtt -also received fomepizole initially for concern of methanol ingestion (3) Diabetes mellitus Current Visit: Yes Status: Chronic Assessment and Plan: Poorly control resulting in DKA. -Has only been on long-acting at home; admits to noncompliance with mealtime insulin coverage -Patient currently on day 5 units of Levemir in a.m. and high dose corrective sliding scale coverage -5 units of lispro with meals and titrate up as needed -Glucose has been elevated in 200-300s -Will increase Levemir to 35 units and give additional 10 now as patient has not received her a.m. dose of 25 units (4) Left upper extremity swelling Current Visit: Yes Status: Acute Assessment and Plan: -Patient with mild left upper extremity swelling that she and RN noticed today -Also with ecchymosis in the left antecubital area -Patient says that is where an IV was suspected IV was infiltrated has been removed -Elevate left upper extremity -Ultrasound of left upper extremity to rule out DVT/superficial thrombosis -No current suspicion for infectious process -We will monitor (5) Hyperammonemia Current Visit: Yes Status: Acute Assessment and Plan: -Elevated ammonia 122 on admission downtrending to 54 -mental status is appropriate -We will not recheck unless mental status changes -Liver ultrasound did reveal hepatic steatosis, could be the etiology of hyperammonemia (6) DVT prophylaxis Current Visit: Yes Status: Acute Assessment and Plan: -heparin sq DVT Prophylaxis: -sq heparin - Time Spent with Patient Total time spent is greater than 50% in coordination of care (as documented) at patient's floor/unit and/or counseling patient: 25 - 35 minutes Plan of Care Discussed with: patient Internal Medicine: Result - Labs CBC & Chem 7: 05/04/18 05:34 05/04/18 05:34 Consult Discharge Plan - Plan Referrals: Mason Cleaning [facility] [Primary Care Provider] - (1) Diabetic ketoacidosis Qualifiers: Diabetes mellitus type: type 2 Diabetes mellitus complication detail: without coma Qualified Code(s): E11.10 - Type 2 diabetes mellitus with ketoacidosis without coma (2) Alcohol withdrawal Qualifiers: Complication of substance-induced condition: with delirium Qualified Code(s) : F10.231 - Alcohol dependence with withdrawal delirium (3) Diabetes mellitus Qualifiers: Diabetes mellitus type: type 2 Diabetes mellitus exterminator insulin use: without exterminator use Diabetes mellitus complication status: with unspecified complications Qualified Code(s): E11.8 - Type 2 diabetes mellitus with unspecified complications
[2018-05-05] MEDS ORDERED: Insulin DETEMIR 100 UNIT/ML X5UNITS SQ ONE (10:58)
[2018-05-05 11:05] LABS: Basophils # 0.1 K/mcL (0.0-0.2); Basophils % 0.6 %; Eosinophils % 0.1 %; Hematocrit 33.2 % (35.3-44.9); Hemoglobin 11.4 g/dL (11.5-15.4); Immature Granulocytes % 3.6 % (0-4); Lymphocytes # 1.4 K/mcL (0.6-4.6); Lymphocytes % 16.4 %; Mean Corpuscular HGB Conc 34.3 g/dL (31.6-35.5); Mean Corpuscular Hemoglobin 30.9 pg (28.0-33.3); Monocytes # 0.6 K/mcL (0.0-1.3); Nucleated Red Blood Cells 0.2 /100 WBC (0); Red Blood Count 3.69 M/mcL (3.82-4.97); Red Cell Distribution Width 12.7 % (11.5-14.5); Segmented Neutrophils % 72.3 %
[2018-05-05 11:06] LABS: Platelet Count 96 K/mcL (140-400)
[2018-05-05 11:45] LABS: BUN/Creatinine Ratio 21 (6-26); Blood Urea Nitrogen 9 mg/dL (6-20); Calcium 8.4 mg/dL (8.6-10.3); Carbon Dioxide 19 mEq/L (23-29); Chloride 102 mEq/L (98-107); Glucose 179 mg/dL (70-105); Osmolality,Calculated 285 (280-300); Potassium 2.6 mEq/L (3.5-5.1); Sodium 136 mEq/L (136-145); eGFR For Non-African Americans > 60 (> 60)
[2018-05-05] MEDS: Folic Acid 1 MG TABLET PO SCH (11:52)
[2018-05-05] MEDS: Multivit/Ca/Min/Fe/FA 1 TAB TABLET PO SCH (11:52)
[2018-05-05] MEDS: Thiamine (B-1) 100 MG TABLET PO SCH (11:52)
[2018-05-05] MEDS: *HR* Promethazine 25 MG/ML VIAL IVP PRN (16:15)
[2018-05-05] MEDS ORDERED: LISINOPRIL 30 MG PO SCH (16:45)
[2018-05-05] MEDS: Lisinopril 20 MG TABLET PO SCH (17:44)
[2018-05-05] MEDS ORDERED: Loperamide 1 MG/5 ML UDC PO PRN (21:08)
[2018-05-06] MEDS: Acetaminophen 325 MG TABLET PO PRN ×3 (03:21→22:46)
[2018-05-06] MEDS: *HR* LORazepam 2 MG/ML VIAL IVP PRN ×6 (03:21→21:06)
[2018-05-06 05:37] LABS: Basophils # 0.1 K/mcL (0.0-0.2); Basophils % 1.4 %; Hematocrit 32.8 % (35.3-44.9); Hemoglobin 11.1 g/dL (11.5-15.4); Immature Granulocytes % 5.7 % (0-4); Lymphocytes # 1.8 K/mcL (0.6-4.6); Mean Corpuscular HGB Conc 33.8 g/dL (31.6-35.5); Mean Corpuscular Hemoglobin 30.8 pg (28.0-33.3); Mean Corpuscular Volume 91.1 fL (83.0-100.0); Mean Platelet Volume 10.4 fL (9.4-12.4); Monocytes # 0.8 K/mcL (0.0-1.3); Monocytes % 12.2 %; Neutrophils # 3.4 K/mcL (1.6-8.9); Nucleated Red Blood Cells 1.4 /100 WBC (0); Platelet Count 105 K/mcL (140-400); Red Cell Distribution Width 12.8 % (11.5-14.5); Segmented Neutrophils % 52.7 %
[2018-05-06] MEDS: *HR* Heparin 5,000 UNIT/ML VIAL SQ SCH ×2 (05:47→18:16)
[2018-05-06 05:57] LABS: BUN/Creatinine Ratio 15 (6-26); Blood Urea Nitrogen 7 mg/dL (6-20); Calcium 8.1 mg/dL (8.6-10.3); Carbon Dioxide 21 mEq/L (23-29); Chloride 100 mEq/L (98-107); Glucose 433 mg/dL (70-105); Osmolality,Calculated 295 (280-300); Potassium 2.9 mEq/L (3.5-5.1); Sodium 134 mEq/L (136-145); eGFR For Non-African Americans > 60 (> 60)
[2018-05-06 06:27] LABS: Platelet Estimate Slight Decrease (Normal)
[2018-05-06] MEDS: Thiamine (B-1) 100 MG TABLET PO SCH (07:56)
[2018-05-06] MEDS: Lisinopril 20 MG TABLET PO SCH (07:56)
[2018-05-06] MEDS: Multivit/Ca/Min/Fe/FA 1 TAB TABLET PO SCH (07:56)
[2018-05-06] MEDS: *HR* Promethazine 25 MG/ML VIAL IVP PRN (07:56)
[2018-05-06] MEDS: Folic Acid 1 MG TABLET PO SCH (07:56)
[2018-05-06] MEDS: Hydrocortisone Sodium Succ 100 MG/2 ML VIAL IVP SCH ×3 (07:57→21:06)
[2018-05-06] MEDS: Insulin LISPRO 300 UNITS/3 ML VIAL SQ SCH ×7 (07:59→21:06)
[2018-05-06] MEDS: Insulin DETEMIR 100 UNIT/ML X5UNITS SQ SCH (08:59)
[2018-05-06] MEDS ORDERED: Insulin DETEMIR 100 UNIT/ML X5UNITS SQ SCH ×2 (09:00)
--- NOTE | 2018-05-06 12:52 | Internal Med Progress Note ---
Hospitalist Progress Note - Encounter Date of Encounter: 05/06/18 Time of Encounter: 12:50 - Subjective Interval History: Patient seen and examined at bedside. Patient no acute overnight events. Patient now scoring higher on Seroquel protocol requiring more Ativan. RN reports that the patient was hallucinating this morning seeing her children in the room. The patient does tell me that she has been hallucinating this morning but is aware of this and is currently not hallucinating. She admits to frequent hot and cold chills. Patient denies any chest pain, shortness breath, nausea, vomiting, diarrhea. Patient continues to admit to some discomfort in her left antecubital area associated with previous infiltrated IV although bruising is improving. I explained to the patient that she is going throughout call with trough delirium tremens states that she understands and this happened before. - Exam Vitals: Temp Pulse Resp BP Pulse Ox 99.5 F 97 18 120/85 93 05/06/18 11:37 05/06/18 11:37 05/06/18 11:37 05/06/18 11:37 05/06/18 11:37 Exam: Constitutional: No acute distress, Alert, diaphoretic Psych: AAO x 3 HEENT: NCAT Neck: supple Cardio: I will be tachycardic and 90s with regular rhythm, +s1s2, no murmurs Resp: clear to ascultation bilaterally Abd: soft, non tender/non distended, positive bowel sounds Extremities: left upper extremity with PICC with no erythema, LUE no longer appears swollen; continues to have ecchymosis on her left antecubital area left wrist and right medial anterior tibial area; all 3 areas are improving; no obvious wounds or crepitus or streaking appreciated Neuro: no focal deficits appreciated - Assessment and Plan (1) Diabetic ketoacidosis Current Visit: Yes Status: Inactive Assessment and Plan: -Patient initially presented with DKA with severely elevated blood sugar and an anion gap of 45 -Blood sugars were improved and the patient was managed in the ICU. Patient was transferred out yesterday. -Remains hyperglycemic in the 170s-400s -No anion gap currently -Continue long-acting insulin will increase to 40 units daily -Increase lispro with meals to 8 units -Continue sliding scale insulin coverage and monitor amount given -Has required over 40 units of sliding scale coverage and last 24 hours -Patient with recurrent DKA, I have explained the importance of long-acting and mealtime coverage and importance with compliance with medications; she states she understands (2) Alcohol withdrawal Current Visit: Yes Status: Acute Assessment and Plan: -Continue CIWA protocol -Now appears to be going through delirium tremens -Seal scores are increasing as his Ativan dose -Continue see what protocol with Ativan as required -And 20 multivitamin, thiamine, folic acid -strongly encouraged alcohol cessation -off precedex gtt -should delirium tremens worsen and require very high doses patient may need to be transferred to higher level of care and may need to be restarted on Precedex drip -also received fomepizole initially for concern of methanol ingestion (3) Diabetes mellitus Current Visit: Yes Status: Chronic Assessment and Plan: -Poorly control resulting in DKA. -As above -Increase long-acting to 40 units daily -Increase mealtime coverage to 8 units with meals -Continue sliding scale insulin -Has required over 40 units of sliding scale coverage and last 24 hours (4) Left upper extremity swelling Current Visit: Yes Status: Acute Assessment and Plan: -Patient with mild left upper extremity swelling that she and RN on 05/05; swelling appears to be resolved -Also with ecchymosis in the left antecubital area that is improving -Patient says that is where an IV was suspected IV was infiltrated has been removed -Elevate left upper extremity -Ultrasound of left upper extremity to rule out DVT/superficial thrombosis; ordered still not completed -No current suspicion for infectious process -We will monitor (5) Hyperammonemia Current Visit: Yes Status: Acute Assessment and Plan: -Elevated ammonia 122 on admission downtrending to 54 -mental status is appropriate, although hallucinating with alcohol withdrawal -Recheck ammonia level -Liver ultrasound did reveal hepatic steatosis, could be the etiology of hyperammonemia (6) DVT prophylaxis Current Visit: Yes Status: Acute Assessment and Plan: -heparin sq DVT Prophylaxis: -sq heparin - Summary of Assessment and Plan Summary of Assessment and Plan: -Continue up titration of insulin regimen -Continue to wean Cortef secondary to relative adrenal insufficiency -And CIWA with Ativan protocol -Should alcohol withdrawl and Delirium tremens worsen may require transfer to higher level of care for resumption of Precedex drip - Time Spent with Patient Total time spent is greater than 50% in coordination of care (as documented) at patient's floor/unit and/or counseling patient: 25 - 35 minutes Internal Medicine: Result - Labs CBC & Chem 7: 05/06/18 05:25 05/06/18 05:25 Labs: Short CBC 05/06/18 Range/Units 05:25 WBC 6.5 (4.3-11.1) K/mcL Hgb 11.1 L (11.5-15.4) g/dL Hct 32.8 L (35.3-44.9) % Plt Count 105 L (140-400) K/mcL Neutrophils # 3.4 (1.6-8.9) K/mcL BMP 05/06/18 05:25 Sodium 134 L Potassium 2.9 L Chloride 100 Carbon Dioxide 21 L BUN 7 Creatinine 0.48 L Glucose 433 H Calcium 8.1 L Consult Discharge Plan - Plan Referrals: Mason Cleaning, PRESS BOX CUSTODIAN [Primary Care Provider] - (Unable to schedule follow up appointment due to office being closed. Please call monday to schedule appointment 7-10 days from date of discharge. ) (1) Diabetic ketoacidosis Qualifiers: Diabetes mellitus type: type 2 Diabetes mellitus complication detail: without coma Qualified Code(s): E11.10 - Type 2 diabetes mellitus with ketoacidosis without coma (2) Alcohol withdrawal Qualifiers: Complication of substance-induced condition: with delirium Qualified Code(s) : F10.231 - Alcohol dependence with withdrawal delirium (3) Diabetes mellitus Qualifiers: Diabetes mellitus type: type 2 Diabetes mellitus terminal computer operator insulin use: without mcfp use Diabetes mellitus complication status: with unspecified complications Qualified Code(s): E11.8 - Type 2 diabetes mellitus with unspecified complications
--- NOTE | 2018-05-06 17:19 | Event Note ---
Date of Encounter: 05/06/18 Time of Encounter: 17:18 Notified by RN that the patient was requesting to leave AMA. Evaluated patient and asked what her concerns were; she states that she just feels terrible going through withdrawals and she knows what it is like because she has experienced this before. I think the patient that we are still trying to manage her hyperglycemia and diabetes as well as her severe hypokalemia and if she left this could be life-threatening . She states that she understands and will continue to stay in the hospital for now. Patient alert and oriented 3 and affect is appropriate. Currently not having any hallucinations. Continue current care.
[2018-05-07] MEDS: *HR* LORazepam 2 MG/ML VIAL IVP PRN ×5 (01:10→20:59)
[2018-05-07] MEDS: *HR* Heparin 5,000 UNIT/ML VIAL SQ SCH ×2 (05:27→16:41)
--- NOTE | 2018-05-07 09:44 | Internal Med Progress Note ---
Hospitalist Progress Note - Encounter Date of Encounter: 05/07/18 Time of Encounter: 09:42 - Subjective Interval History: No acute changes overnight. Patient reporting that she is continuing to experience tremors but denies any auditory or visual hallucinations. - Exam Vitals: Temp Pulse Resp BP Pulse Ox 98.2 F 91 15 119/82 95 05/07/18 07:00 05/07/18 07:00 05/07/18 07:00 05/07/18 07:00 05/07/18 07:00 Exam: Constitutional: No acute distress, Alert, diaphoretic Psych: AAO x 3, no auditory or visual hallucinations HEENT: NCAT Neck: supple Cardio: RRR, s1s2, no murmurs Resp: clear to ascultation bilaterally AP and L Abd: soft, non tender/non distended, positive bowel sounds Extremities: left upper extremity with PICC with no erythema, LUE no longer appears swollen; continues to have ecchymosis on her left antecubital area left wrist and right medial anterior tibial area; all 3 areas are improving; no obvious wounds or crepitus or streaking appreciated. Mild tremors present bilateral upper extremities Neuro: no focal deficits appreciated - Assessment and Plan (1) Alcohol withdrawal Current Visit: Yes Status: Acute Assessment and Plan: -Continue CIWA protocol -Now appears to be going through delirium tremens -Seal scores are increasing as his Ativan dose -Continue see what protocol with Ativan as required -And 20 multivitamin, thiamine, folic acid -strongly encouraged alcohol cessation -off precedex gtt -should delirium tremens worsen and require very high doses patient may need to be transferred to higher level of care and may need to be restarted on Precedex drip -also received fomepizole initially for concern of methanol ingestion 05/07--Withdrawal persists, having BUE tremors. Denies any SI/HI or auditory/ visual hallucinations. Continue CIWA protocol, thiamine and folic acid. (2) Diabetes mellitus Current Visit: Yes Status: Chronic Assessment and Plan: -Poorly control resulting in DKA. -As above -Increase long-acting to 40 units daily -Increase mealtime coverage to 8 units with meals -Continue sliding scale insulin -Has required over 40 units of sliding scale coverage and last 24 hours 05/07--hyperglycemia persists. Increase prandial dosing to 12 units with meal, continue HSSIC, and basal coverage; basal insulin has been divided to be given BID to support better glucose control (3) Diabetic ketoacidosis Current Visit: Yes Status: Inactive Assessment and Plan: -Patient initially presented with DKA with severely elevated blood sugar and an anion gap of 45 -Blood sugars were improved and the patient was managed in the ICU. Patient was transferred out yesterday. -Remains hyperglycemic in the 170s-400s -No anion gap currently -Continue long-acting insulin will increase to 40 units daily -Increase lispro with meals to 8 units -Continue sliding scale insulin coverage and monitor amount given -Has required over 40 units of sliding scale coverage and last 24 hours -Patient with recurrent DKA, I have explained the importance of long-acting and mealtime coverage and importance with compliance with medications; she states she understands 05/07--No longer in DKA. Continue insulin as stated above (4) Hyperammonemia Current Visit: Yes Status: Acute Assessment and Plan: -Elevated ammonia 122 on admission downtrending to 54 -mental status is appropriate, although hallucinating with alcohol withdrawal -Recheck ammonia level -Liver ultrasound did reveal hepatic steatosis, could be the etiology of hyperammonemia 05/07--ammonia 67 today. mentating appropriately. redraw ammonia in a.m (5) Left upper extremity swelling Current Visit: Yes Status: Acute Assessment and Plan: -Patient with mild left upper extremity swelling that she and RN on 05/05; swelling appears to be resolved -Also with ecchymosis in the left antecubital area that is improving -Patient says that is where an IV was suspected IV was infiltrated has been removed -Elevate left upper extremity -Ultrasound of left upper extremity to rule out DVT/superficial thrombosis; ordered still not completed -No current suspicion for infectious process -We will monitor 05/07-- LUE negative for DVT, superficial LUE thrombosis in cephalic vein. Elevate and apply warm compress. Remove IV in left arm (6) DVT prophylaxis Current Visit: Yes Status: Acute Assessment and Plan: Continue heparin sq - Time Spent with Patient Total time spent is greater than 50% in coordination of care (as documented) at patient's floor/unit and/or counseling patient: less than 15 minutes Plan of Care Discussed with: patient Internal Medicine: Result - Labs CBC & Chem 7: 05/07/18 09:47 05/07/18 09:47 Consult Discharge Plan - Plan Referrals: Mason Cleaning, NUCLEAR CONTROL OPERATOR [Primary Care Provider] - (Unable to schedule follow up appointment due to office being closed. Please call monday to schedule appointment 7-10 days from date of discharge. ) (1) Alcohol withdrawal Qualifiers: Complication of substance-induced condition: with delirium Qualified Code(s) : F10.231 - Alcohol dependence with withdrawal delirium (2) Diabetes mellitus Qualifiers: Diabetes mellitus type: type 2 Diabetes mellitus fdc insulin use: without rat exterminator use Diabetes mellitus complication status: with unspecified complications Qualified Code(s): E11.8 - Type 2 diabetes mellitus with unspecified complications (3) Diabetic ketoacidosis Qualifiers: Diabetes mellitus type: type 2 Diabetes mellitus complication detail: without coma Qualified Code(s): E11.10 - Type 2 diabetes mellitus with ketoacidosis without coma
[2018-05-07] MEDS: Thiamine (B-1) 100 MG TABLET PO SCH (09:50)
[2018-05-07] MEDS: Folic Acid 1 MG TABLET PO SCH (09:50)
[2018-05-07] MEDS: Multivit/Ca/Min/Fe/FA 1 TAB TABLET PO SCH (09:50)
[2018-05-07] MEDS: Lisinopril 20 MG TABLET PO SCH (09:50)
[2018-05-07] MEDS: Insulin DETEMIR 100 UNIT/ML X5UNITS SQ SCH (09:51)
[2018-05-07] MEDS: Insulin LISPRO 300 UNITS/3 ML VIAL SQ SCH ×8 (09:51→20:42)
[2018-05-07] MEDS: Hydrocortisone Sodium Succ 100 MG/2 ML VIAL IVP SCH ×2 (09:51→20:50)
[2018-05-07 10:04] LABS: Hematocrit 36.1 % (35.3-44.9); Hemoglobin 12.1 g/dL (11.5-15.4); Red Blood Count 3.93 M/mcL (3.82-4.97)
[2018-05-07 10:05] LABS: Basophils # 0.1 K/mcL (0.0-0.2); Basophils % 1.7 %; Eosinophils # 0.1 K/mcL (0.0-0.6); Eosinophils % 1.1 %; Immature Granulocytes % 5.9 % (0-4); Lymphocytes # 3.3 K/mcL (0.6-4.6); Lymphocytes % 39.5 %; Mean Corpuscular HGB Conc 33.5 g/dL (31.6-35.5); Mean Corpuscular Hemoglobin 30.8 pg (28.0-33.3); Mean Corpuscular Volume 91.9 fL (83.0-100.0); Mean Platelet Volume 10.5 fL (9.4-12.4); Monocytes % 11.7 %; Neutrophils # 3.3 K/mcL (1.6-8.9); Nucleated Red Blood Cells 0.6 /100 WBC (0); Platelet Count 117 K/mcL (140-400); Red Cell Distribution Width 13.2 % (11.5-14.5); Segmented Neutrophils % 40.1 %
[2018-05-07 10:28] LABS: Alanine Aminotransferase 28 Units/L (7-52); Albumin 3.4 g/dL (3.5-5.7); Albumin/Globulin Ratio 1.2 (1.1-2.2); Alkaline Phosphatase 119 Units/L (34-104); Aspartate Amino Transferase 74 Units/L (13-39); BUN/Creatinine Ratio 17 (6-26); Bilirubin,Direct 0.2 mg/dL (0.0-0.2); Bilirubin,Indirect 0.3 mg/dL (0.0-1.2); Bilirubin,Total 0.5 mg/dL (0.3-1.0); Blood Urea Nitrogen 8 mg/dL (6-20); Calcium 8.8 mg/dL (8.6-10.3); Carbon Dioxide 23 mEq/L (23-29); Chloride 103 mEq/L (98-107); Globulin 2.8 g/dL (2.4-3.5); Glucose 427 mg/dL (70-105); Magnesium 1.2 mg/dL (1.6-2.6); Osmolality,Calculated 303 (280-300); Phosphorous 2.8 mg/dL (2.7-4.5); Potassium 2.9 mEq/L (3.5-5.1); Sodium 138 mEq/L (136-145); Total Protein 6.2 g/dL (6.4-8.9); eGFR For Non-African Americans > 60 (> 60)
--- NOTE | 2018-05-07 15:51 | Electrocardiograph Report ---
[address] [place] [address] Test Date: 2018-05-03 Pat Name: Gretchen Anderson Department: 112 Room: 3B39 Gender: F Work Study Student: : 1980 Requested By: Hakan Bee Order Number: [id number] Reading MD: Gerry Jeong Measurements Intervals [place] Rate: 76 P: 36 CO: 130 QRS: 45 QRSD: 91 T: 33 QT: 391 QTc: 421 Interpretive Statements SINUS RHYTHM ST ELEVATION, PROBABLY EARLY REPOLARIZATION Electronically Signed On 05-07-2018 15:49:55 EDT by Gerry Jeong
[2018-05-07] MEDS: Acetaminophen 325 MG TABLET PO PRN (16:40)
[2018-05-07] MEDS: Magnesium Oxide 400 MG TABLET PO SCH (16:40)
[2018-05-07] MEDS ORDERED: 0.9 % Sodium Chloride 500 ML ONE ×2 (16:46→20:57)
[2018-05-07] MEDS ORDERED: Magnesium Oxide 400 MG TABLET PO SCH (21:00)
[2018-05-07] MEDS ORDERED: Magnesium Oxide 400 MG TABLET PO ONE (21:00)
[2018-05-07] MEDS ORDERED: 0.9 % Sodium Chloride 500 ML IV ONE (21:30)
[2018-05-08] MEDS: *HR* LORazepam 2 MG/ML VIAL IVP PRN ×4 (01:30→19:38)
[2018-05-08] MEDS: Acetaminophen 325 MG TABLET PO PRN ×2 (04:48→15:05)
[2018-05-08 05:34] LABS: Basophils # 0.1 K/mcL (0.0-0.2); Basophils % 1.1 %; Eosinophils # 0.1 K/mcL (0.0-0.6); Eosinophils % 0.7 %; Hematocrit 30.6 % (35.3-44.9); Immature Granulocytes % 4.4 % (0-4); Lymphocytes % 32.6 %; Mean Corpuscular HGB Conc 34.3 g/dL (31.6-35.5); Mean Corpuscular Volume 90.3 fL (83.0-100.0); Mean Platelet Volume 10.3 fL (9.4-12.4); Monocytes # 1.3 K/mcL (0.0-1.3); Monocytes % 13.7 %; Neutrophils # 4.3 K/mcL (1.6-8.9); Nucleated Red Blood Cells 0.3 /100 WBC (0); Platelet Count 142 K/mcL (140-400); Red Blood Count 3.39 M/mcL (3.82-4.97); Red Cell Distribution Width 13.8 % (11.5-14.5); Segmented Neutrophils % 47.5 %
[2018-05-08 05:39] LABS: Hemoglobin 10.5 g/dL (11.5-15.4)
[2018-05-08 05:50] LABS: BUN/Creatinine Ratio 26 (6-26); Blood Urea Nitrogen 10 mg/dL (6-20); Calcium 8.6 mg/dL (8.6-10.3); Carbon Dioxide 24 mEq/L (23-29); Chloride 105 mEq/L (98-107); Glucose 248 mg/dL (70-105); Osmolality,Calculated 293 (280-300); Sodium 138 mEq/L (136-145); eGFR For Non-African Americans > 60 (> 60)
[2018-05-08] MEDS: Lisinopril 20 MG TABLET PO SCH (08:12)
[2018-05-08] MEDS: Multivit/Ca/Min/Fe/FA 1 TAB TABLET PO SCH (08:12)
[2018-05-08] MEDS: Insulin DETEMIR 100 UNIT/ML X5UNITS SQ SCH ×2 (08:12→21:27)
[2018-05-08] MEDS: Thiamine (B-1) 100 MG TABLET PO SCH (08:12)
[2018-05-08] MEDS: Folic Acid 1 MG TABLET PO SCH (08:12)
[2018-05-08] MEDS: Magnesium Oxide 400 MG TABLET PO SCH (08:12)
[2018-05-08] MEDS: Hydrocortisone Sodium Succ 100 MG/2 ML VIAL IVP SCH (08:12)
[2018-05-08] MEDS: Insulin LISPRO 300 UNITS/3 ML VIAL SQ SCH ×7 (08:13→21:05)
[2018-05-08] MEDS: *HR* Heparin 5,000 UNIT/ML VIAL SQ SCH ×2 (08:17→17:22)
--- NOTE | 2018-05-08 09:20 | Internal Med Progress Note ---
<Rell Mejía - Last Filed: 05/08/18 18:04> Hospitalist Progress Note - Encounter Date of Encounter: 05/08/18 Time of Encounter: 09:17 - Subjective Interval History: Pt seen and examined on hospital day 5. Resting comfortably, NAD. Nursing reports no concerns overnight. BPs 123/85 to 127/85, Pulses ranged from 97-103, Pt was afebrile. Pt admits to auditory hallucinations of her children yesterday , but denies experiencing this sensations today. Pt knows that she needs to change her drinking habits. ROS: admits to f/c, blurry vision, tremors in upper extremities, numbness/tingling in feet; denies CP, SOB, abdominal pain, n/v/d. CIWA scores ranged from 3-13 overnight. - Exam Vitals: Temp Pulse Resp BP Pulse Ox 98.1 F 90 18 157/111 98 05/08/18 07:29 05/08/18 07:29 05/08/18 07:29 05/08/18 07:29 05/08/18 07:29 Gen.: NAD. HEENT: oropharynx clear, Normocephalic, atraumatic, EOMI Cardiac: RRR, no murmur, +S1/S2, no edema B/L LE Pulmonary: CTA bilaterally, no wheezes, rales or rhonchi Abdomen: soft, NT tender to palpation, BS noted, no guarding Skin: warm and dry, no visible lesions. MSK:no joint swelling noted, gait no assessed while in bed. Non tender calf or clubbing Neuro: moves all extremities Psych: CN 2-12 grossly intact Exam: Constitutional: No acute distress, Alert, diaphoretic Psych: AAO x 3 HEENT: NCAT Neck: supple Cardio: RRR, s1s2, no murmurs Resp: clear to ascultation bilaterally Abd: soft, non tender/non distended, positive bowel sounds Extremities: trace edema in b/l LE; Neuro: no focal deficits appreciated; CN 2-12 grossly intact - Assessment and Plan (1) Diabetic ketoacidosis Current Visit: Yes Status: Resolved Assessment and Plan: -Pt presented to ED in DKA with AG of 33 -sent to ICU and treated until gap closed, transferred out of ICU yesterday -Reports hx of poorly controlled diabetes; pt knowingly neglects to take basil insulin dose at times -states home BG routinely run 400+ -Will continue basal insulin and SSI coverage -continue to monitor BG -pt also taking steroids for adrenal insufficiency -tolerating diet (2) Diabetes mellitus Current Visit: Yes Status: Chronic Assessment and Plan: -40 U Levemir daily Priandial dosing 12 units with meal -will continue HSSIC -poorly controlled as detailed above -BG 248 this morning (3) Alcohol dependence Current Visit: No Status: Chronic Assessment and Plan: -Pt admits to continued alcohol consumption. Last drink the day before admission ; pt drinks 1/5 3x wk -admits to tremors today, blurry vision -auditory hallucinations yesterday CIWA 11 before tx today and 3 after -Continue CIWA protocol, thiamine and folic acid. -ativan and librium for longer lasting control -LFTs WNL -alcohol cessation encouraged (4) Hyperammonemia Current Visit: Yes Status: Acute Assessment and Plan: -Elevated ammonia 122 on admission, 64 today -mental status is appropriate, although hallucinating with alcohol withdrawal -no asterixis on exam -Liver ultrasound did reveal hepatic steatosis, could be the etiology of hyperammonemia DVT Prophylaxis: subq heparin - Time Spent with Patient Total time spent is greater than 50% in coordination of care (as documented) at patient's floor/unit and/or counseling patient: Internal Medicine: Result - Labs CBC & Chem 7: 05/08/18 05:15 05/08/18 05:15 Labs: Short CBC 05/07/18 05/08/18 Range/Units 09:47 05:15 WBC 8.3 9.1 (4.3-11.1) K/mcL Hgb 12.1 10.5 L D (11.5-15.4) g/dL Hct 36.1 30.6 L (35.3-44.9) % Plt Count 117 L 142 (140-400) K/mcL Neutrophils # 3.3 4.3 (1.6-8.9) K/mcL BMP 05/07/18 05/07/18 05/08/18 09:47 17:46 05:15 Sodium 138 138 Potassium 2.9 L 3.2 L 3.0 L Chloride 103 105 Carbon Dioxide 23 24 BUN 8 10 Creatinine 0.48 L 0.39 L Glucose 427 H 248 H Calcium 8.8 8.6 Liver Function 10/08/18 Range/Units 09:47 Total Bilirubin 0.5 (0.3-1.0) mg/dL Direct Bilirubin 0.2 (0.0-0.2) mg/dL AST 74 H (13-39) Units/L ALT 28 (7-52) Units/L Alkaline Phosphatase 119 H (34-104) Units/L Albumin 3.4 L (3.5-5.7) g/dL Consult Discharge Plan - Plan Referrals: Mason Cleaning CNP [Primary Care Provider] - (Unable to schedule follow up appointment due to office being closed. Please call monday to schedule appointment 7-10 days from date of discharge. ) <Jorge Alberto Kinney - Last Filed: 05/08/18 19:00> Hospitalist Progress Note - Encounter Date of Encounter: 05/08/18 - Exam Vitals: Temp Pulse Resp BP Pulse Ox 98.0 F 83 16 148/88 96 05/08/18 15:47 05/08/18 15:47 05/08/18 15:47 05/08/18 15:47 05/08/18 15:47 - Assessment and Plan (1) Alcohol withdrawal Current Visit: Yes Status: Acute (2) Diabetes mellitus Current Visit: Yes Status: Chronic (3) Diabetic ketoacidosis Current Visit: Yes Status: Resolved (4) Hyperammonemia Current Visit: Yes Status: Acute (5) DVT prophylaxis Current Visit: Yes Status: Acute (6) Left upper extremity swelling Current Visit: Yes Status: Acute (7) Hypokalemia Current Visit: No Status: Acute Assessment and Plan: Continues today. Replete (8) Anemia Current Visit: No Status: Acute - Time Spent with Patient Total time spent is greater than 50% in coordination of care (as documented) at patient's floor/unit and/or counseling patient: Internal Medicine: Result - Labs CBC & Chem 7: 05/08/18 05:15 05/08/18 05:15 Labs: Short CBC 05/08/18 Range/Units 05:15 WBC 9.1 (4.3-11.1) K/mcL Hgb 10.5 L D (11.5-15.4) g/dL Hct 30.6 L (35.3-44.9) % Plt Count 142 (140-400) K/mcL Neutrophils # 4.3 (1.6-8.9) K/mcL BMP 05/08/18 05:15 Sodium 138 Potassium 3.0 L Chloride 105 Carbon Dioxide 24 BUN 10 Creatinine 0.39 L Glucose 248 H Calcium 8.6 - Attending Attestation The history, physical exam, and medical decision making was performed by the medical student either while I was physically present and actively involved or I personally re-performed the exam and medical decision making. I have verified the accuracy of the medical student's documentation with regards to the history, physical exam findings, and medical decision making on 05/08/18. Ms Anderson is currently admitted for DKA and ETOH abuse and withdrawal. She remains moderate to high risk due to potential for worsening clinical status. Ms Anderson is feeling OK. She had some feeling of shakiness earlier but better now. No fever or chills. No CP or SOB. Exam alert Comfortable Mucus membranes dry Heart reg and not tachy Lungs diminished but clear Abd soft and nontender No edema I/P 1. DKA resolved 2. ETOH abuse and withdrawal Further diagnoses and plan as above. <Rell Mejía A - Last Filed: 05/08/18 18:04> (2) Diabetes mellitus Qualifiers: Diabetes mellitus type: type 2 Diabetes mellitus watermelon inspector insulin use: without watermelon inspector use Diabetes mellitus complication status: with unspecified complications Qualified Code(s): E11.8 - Type 2 diabetes mellitus with unspecified complications; Z79.4 - termite control representative (current) use of insulin (3) Alcohol dependence Qualifiers: Substance use status: in withdrawal Complication of substance-induced condition: with delirium Qualified Code(s): F10.231 - Alcohol dependence with withdrawal delirium <Jorge Alberto Kinney - Last Filed: 10/09/18 19:00> (1) Alcohol withdrawal Qualifiers: Complication of substance-induced condition: with delirium Qualified Code(s) : F10.231 - Alcohol dependence with withdrawal delirium (2) Diabetes mellitus Qualifiers: Diabetes mellitus type: type 2 Diabetes mellitus penitentiary insulin use: with watermelon inspector use Diabetes mellitus complication status: with hyperglycemia Qualified Code(s): E11.65 - Type 2 diabetes mellitus with hyperglycemia; Z79.4 - longterm (current) use of insulin (3) Diabetic ketoacidosis Qualifiers: Diabetes mellitus type: type 2 Diabetes mellitus complication detail: without coma Qualified Code(s): E11.10 - Type 2 diabetes mellitus with ketoacidosis without coma (8) Anemia Qualifiers: Anemia type: unspecified type Qualified Code(s): D64.9 - Anemia, unspecified
[2018-05-09] MEDS: *HR* LORazepam 2 MG/ML VIAL IVP PRN ×2 (02:34→19:34)
[2018-05-09] MEDS: *HR* Heparin 5,000 UNIT/ML VIAL SQ SCH ×2 (05:38→17:12)
[2018-05-09 05:50] LABS: Basophils # 0.1 K/mcL (0.0-0.2); Basophils % 1.3 %; Eosinophils # 0.2 K/mcL (0.0-0.6); Eosinophils % 2.3 %; Hematocrit 33.5 % (35.3-44.9); Hemoglobin 11.1 g/dL (11.5-15.4); Immature Granulocytes % 4.5 % (0-4); Lymphocytes # 3.5 K/mcL (0.6-4.6); Lymphocytes % 38.9 %; Mean Corpuscular HGB Conc 33.1 g/dL (31.6-35.5); Mean Corpuscular Volume 93.6 fL (83.0-100.0); Mean Platelet Volume 10.2 fL (9.4-12.4); Monocytes # 1.3 K/mcL (0.0-1.3); Monocytes % 14.4 %; Neutrophils # 3.5 K/mcL (1.6-8.9); Platelet Count 182 K/mcL (140-400); Red Blood Count 3.58 M/mcL (3.82-4.97); Red Cell Distribution Width 14.3 % (11.5-14.5); Segmented Neutrophils % 38.6 %
[2018-05-09 06:11] LABS: BUN/Creatinine Ratio 20 (6-26); Blood Urea Nitrogen 7 mg/dL (6-20); Carbon Dioxide 26 mEq/L (23-29); Chloride 104 mEq/L (98-107); Glucose 127 mg/dL (70-105); Osmolality,Calculated 290 (280-300); Potassium 2.7 mEq/L (3.5-5.1); Sodium 140 mEq/L (136-145); eGFR For Non-African Americans > 60 (> 60)
[2018-05-09] MEDS ORDERED: Potassium Chloride 40 MEQ, Lidocaine 1% 2 ML in D5% in Water 500 ML IVPB ONE (07:38)
[2018-05-09] MEDS: Lisinopril 20 MG TABLET PO SCH (09:23)
[2018-05-09] MEDS: Folic Acid 1 MG TABLET PO SCH (09:23)
[2018-05-09] MEDS: Thiamine (B-1) 100 MG TABLET PO SCH (09:23)
[2018-05-09] MEDS: Acetaminophen 325 MG TABLET PO PRN (09:23)
[2018-05-09] MEDS: Multivit/Ca/Min/Fe/FA 1 TAB TABLET PO SCH (09:23)
[2018-05-09] MEDS: Insulin LISPRO 300 UNITS/3 ML VIAL SQ SCH ×7 (09:24→20:53)
[2018-05-09] MEDS: Magnesium Oxide 400 MG TABLET PO SCH (09:24)
[2018-05-09] MEDS: Insulin DETEMIR 100 UNIT/ML X5UNITS SQ SCH ×2 (09:24→20:52)
--- NOTE | 2018-05-09 09:54 | Discharge Summary ---
Orders not resulted at time of discharge: Pending orders 05/10/18 04:00 Basic Metabolic Panel AM 0400 Complete Blood Count [HEME] AM 0400 Date of Encounter: 05/09/18 Time of Encounter: 09:30 - Discharge Diagnosis (1) Diabetic ketoacidosis Priority: Primary Status: Resolved Qualifiers: Diabetes mellitus type: type 2 Diabetes mellitus complication detail: without coma Qualified Code(s): E11.10 - Type 2 diabetes mellitus with ketoacidosis without coma (2) Diabetes mellitus Priority: Secondary Status: Chronic Qualifiers: Diabetes mellitus type: type 2 Diabetes mellitus prison insulin use: with long term care pharmacist use Diabetes mellitus complication status: with hyperglycemia Qualified Code(s): E11.65 - Type 2 diabetes mellitus with hyperglycemia; Z79.4 - [facility] (current) use of insulin (3) Alcohol withdrawal Priority: Secondary Status: Acute Qualifiers: Complication of substance-induced condition: with delirium Qualified Code(s ): F10.231 - Alcohol dependence with withdrawal delirium (4) Anemia Priority: Secondary Status: Acute Qualifiers: Anemia type: unspecified type Qualified Code(s): D64.9 - Anemia, unspecified (5) Hypokalemia Priority: Secondary Status: Acute (6) Hyperammonemia Priority: Secondary Status: Acute (7) DVT prophylaxis Priority: Secondary Status: Acute Hospital course: Ms. Anderson is a 38 year old female - Time Spent with Patient Total time spent providing and/or coordinating discharge services: - Discharge Medications Prescriptions: Chlordiazepoxide [Librium] 25 mg PO DAILY 2 Days #2 capsule Insulin Glargine,Hum.rec.anlog [Basaglar Kwikpen U-100] 20 unit SQ BID 15 Days # 6 insuln.pen Home Medications: Pantoprazole Sodium [Protonix] 40 mg PO DAILY 02/10/18 [History] Lisinopril 30 mg PO DAILY 05/03/18 [History] Chlordiazepoxide [Librium] 25 mg PO DAILY 2 Days #2 capsule 05/09/18 [Rx] Insulin Glargine,Hum.rec.anlog [Basaglar Kwikpen U-100] 20 unit SQ BID 15 Days # 6 insuln.pen 05/09/18 [Rx] Allergies/Adverse Reactions: 3 Allergy/AdvReac Type Severity Reaction Status Date / Time No Known Allergies Allergy Verified 02/11/18 16:19 Date of admission: 05/03/18 03:06 Primary care physician: Mason lCeaning CNP Consults: 05/03/18 03:43 Consult to Fishing Boat Mate [CONS] Routine Reason for SW Consult: Chronic alcohol abuse 05/03/18 05:52 Consult to Critical Care [CONS] Routine Consulting Provider: [facility] Reason for Consult: DKA, alcohol withdrawal Call Completed: Yes 05/07/18 12:28 Consult to PICC team [Consult to Invasive Line Access Team] [CONS] Routine Reason for Consult: replace PG to right arm Line Type: EPIV Discharging clinician: Angelita Christianson Anticipated date of discharge: 05/09/18 - Constitutional Vitals: Temp Pulse Resp BP Pulse Ox 98.4 F 67 16 145/91 95 05/09/18 07:28 05/09/18 07:28 05/09/18 07:28 05/09/18 07:28 05/09/18 07:28 General appearance: Present: A&O X 3, pleasant, no acute distress, answers questions appropriately - Head Head exam: Present: atraumatic, normocephalic - Eye Eye exam: Present: EOMI, sclera anicteric. Absent: conjunctival injection, nystagmus Pupils: Present: normal accommodation - ENT ENT exam: Present: mucous membranes moist, normal exam - Neck Neck exam general surgery: Present: full ROM, normal inspection. Absent: tenderness - Respiratory Respiratory exam: Present: CTAB. Absent: rales, rhonchi, stridor, wheezes - Cardiovascular Cardiovascular exam: Present: RRR, +S1, +S2. Absent: clicks, gallop - GI/Abdominal GI/Abdominal exam: Present: normal bowel sounds, soft. Absent: firm, guarding, tenderness - Extremities Exam Extremities exam: Present: full ROM, warm. Absent: calf tenderness, pedal edema , tenderness - Discharge Instructions Follow Up With: Mason Cleaning CNP [Primary Care Provider] - (Unable to schedule follow up appointment due to office being closed. Please call monday to schedule appointment 7-10 days from date of discharge. )
--- NOTE | 2018-05-09 17:55 | Internal Med Progress Note ---
<Sammy,Angelita - Last Filed: 05/09/18 17:49> Hospitalist Progress Note - Encounter Date of Encounter: 05/09/18 Time of Encounter: 09:20 - Subjective Interval History: Ms. Anderson was seen at bedside this morning. She was comfortable and had no complaints. Her vitals remained stable overnight and she was afebrile. Her potassium was low and it was repleted. She inquired about discharge. Additionally she noted her bilateral blurry vision is still persistent. She has never visited an millinery designer for eye exam and given her long standing diabetes I urged her to follow up with an millinery designer upon discharge. She denied nausea, headache, fever, chills, shortness of breath or chest pain. - Exam Vitals: Temp Pulse Resp BP Pulse Ox 98.2 F 83 16 132/90 96 05/09/18 16:32 05/09/18 16:32 05/09/18 16:32 05/09/18 16:32 05/09/18 16:32 Exam: Gen.: Vitals noted. No acute distress. AAOx3 HEENT: PERRL/EOMI, oropharynx clear, Normocephalic, atraumatic, moist mucus membrane Cardiac: RRR, no murmur, +S1/S2 Pulmonary: CTA bilaterally, no wheezes, rales or rhonchi, equal chest expansion Abdomen: soft, nontender, BS noted, no guarding, no rebound. Extremities: no erythema, nontender, no edema Neuro: A&Ox3, CN II-XII intact, no tremors observed Psych: Appropriate mood and behavior - Assessment and Plan (1) Diabetes mellitus Current Visit: Yes Status: Chronic Assessment and Plan: Poorly control resulting in DKA. Her glucose has remained stable since admission and it is 110 today. She is only on 20 mg at night time at home and will require a change in regimen upon discharge. Plan: Continue 20 mg levemir BID daily Continue sliding scale Continue diabetic diet. (2) Diabetic ketoacidosis Current Visit: Yes Status: Resolved Assessment and Plan: She presented to the ED with anion gap of 33 and was in the ICU until her gap closed. She has history of frequent admissions due to DKA and is not compliant at home with her insulin regimen. She noted her glucose is around 400 at home. She also drinks excessive amount of alcohol worsening her hyperglycemia Plan: Continue 20 mg levemir BID Continue sliding scale insulin She is tolerating diet, continue diabetic diet (3) Alcohol withdrawal Current Visit: Yes Status: Acute Assessment and Plan: Imrpoving CIWA scores, ranged 1 to 10 today but the scoring is very subjective. Day 7 in the hospital. Vitals have remained stable overnight. She is very comfortable in bed and completed her breakfast this morning. No tremors noted today, no new auditory hallucinations since two days ago. Plan: -Continue see what protocol with Ativan as required -Librium per protocol -Continue 20 multivitamin, thiamine, folic acid -Strongly encouraged alcohol cessation (4) Anemia Current Visit: No Status: Acute Assessment and Plan: Hemoglobin is stable. Her hemoglobin yesterday was 10.5 and today is 11.1 and her baseline is 12 to 14. She has no signs of acute bleeding. She denied emesis or hematochezia. MCV is 93 so likely microcytic or poor diet given she drinks excessive amount of alcohol although that would be more of a macrocytic picture. Plan: Continue to monitor, CBC in the morning (5) Hypokalemia Current Visit: No Status: Acute Assessment and Plan: Today her potassium was 2.7. It was repleted with IV potassium and oral potassium. Plan: Continue to monitor, bmp tomorrow (6) Hyperammonemia Current Visit: Yes Status: Resolved Assessment and Plan: Elevated ammonia 122 on admission downtrending to 66 yesterday. Mental status is appropriate, no further auditory hallucinations noted. Liver ultrasound revealed hepatic steatosis, could be the etiology of hyperammonemia. Plan: Continue to monitor for clinical signs for hyperammonemia (7) DVT prophylaxis Current Visit: Yes Status: Acute Assessment and Plan: Continue heparin sq (8) Blurry vision Current Visit: Yes Status: Acute Assessment and Plan: Ms. Osuna noted blurry vision ongoing since admisison. She is unable to elaborate on the vision changes but states she is able to walk without any concern for visual impairment and can text without any visual disturbances. She denies any pain with eye movement. This is likely due to changes in glucose levels from her chronically elevated to normal levels. Her cranial nerves II to XII were intact. She has normally eye contriction to light and accomodation bilaterally. Plan: Continue to monitor Will require outpatient optometry - Time Spent with Patient Total time spent is greater than 50% in coordination of care (as documented) at patient's floor/unit and/or counseling patient: less than 15 minutes Plan of Care Discussed with: patient Internal Medicine: Result - Labs CBC & Chem 7: 05/09/18 04:50 05/09/18 04:50 Labs: Short CBC 05/09/18 Range/Units 04:50 WBC 9.1 (4.3-11.1) K/mcL Hgb 11.1 L (11.5-15.4) g/dL Hct 33.5 L (35.3-44.9) % Plt Count 182 (140-400) K/mcL Neutrophils # 3.5 (1.6-8.9) K/mcL BMP 05/09/18 04:50 Sodium 140 Potassium 2.7 L Chloride 104 Carbon Dioxide 26 BUN 7 Creatinine 0.35 L Glucose 127 H Calcium 9.0 Consult Discharge Plan - Plan Referrals: Mason Cleaning, ASSISTANT PROGRAM MANAGER [Primary Care Provider] - (Unable to schedule follow up appointment due to office being closed. Please call monday to schedule appointment 7-10 days from date of discharge. ) Prescriptions: Chlordiazepoxide [Librium] 25 mg PO DAILY 2 Days #2 capsule Insulin Glargine,Hum.rec.anlog [Basaglar Kwikpen U-100] 20 unit SQ BID 15 Days # 6 insuln.pen <Jorge Alberto Kinney - Last Filed: 05/09/18 19:46> Hospitalist Progress Note - Encounter Date of Encounter: 05/09/18 - Exam Vitals: Temp Pulse Resp BP Pulse Ox 98.2 F 93 16 128/89 96 05/09/18 19:07 05/09/18 19:07 05/09/18 19:07 05/09/18 19:07 05/09/18 19:07 - Assessment and Plan (1) Anemia Current Visit: No Status: Acute (2) Alcohol withdrawal Current Visit: Yes Status: Acute (3) Diabetes mellitus Current Visit: Yes Status: Chronic (4) Hypokalemia Current Visit: No Status: Acute (5) Diabetic ketoacidosis Current Visit: Yes Status: Resolved (6) Hyperammonemia Current Visit: Yes Status: Resolved (7) DVT prophylaxis Current Visit: Yes Status: Acute (8) Blurry vision Current Visit: Yes Status: Acute - Time Spent with Patient Total time spent is greater than 50% in coordination of care (as documented) at patient's floor/unit and/or counseling patient: Internal Medicine: Result - Labs CBC & Chem 7: 05/09/18 04:50 05/09/18 04:50 Labs: Short CBC 05/09/18 Range/Units 04:50 WBC 9.1 (4.3-11.1) K/mcL Hgb 11.1 L (11.5-15.4) g/dL Hct 33.5 L (35.3-44.9) % Plt Count 182 (140-400) K/mcL Neutrophils # 3.5 (1.6-8.9) K/mcL BMP 05/09/18 04:50 Sodium 140 Potassium 2.7 L Chloride 104 Carbon Dioxide 26 BUN 7 Creatinine 0.35 L Glucose 127 H Calcium 9.0 - Attending Attestation I examined this patient and my medical decision-making was reviewed with the Resident Physician on 05/09/18. I agree with the documented findings, disposition and treatment plan as described except to the extent set forth below. Ms Anderson is currently admitted for DKA and ETOH withdrawal. She remains moderate to high risk due to potential for worsening clinical status. Ms Anderson is having some blurry vision. No fever or chills. No CP or SOB. No cough. Still with some shakiness. Exam alert Comfortable at this time Mucus membranes dry Heart reg No wheeze Abd soft No edema Moves all extremities No tremor now I/P 1. DKA resolved. 2. Etoh withdrawal 3. Blurry vision most likely due to blood glucose fluctuations. Further diagnoses and plan as above. Anticipate d/c tomorrow. <Sammy,Angelita - Last Filed: 05/09/18 17:49> (1) Diabetes mellitus Qualifiers: Diabetes mellitus type: type 2 Diabetes mellitus fci insulin use: with fci use Diabetes mellitus complication status: with hyperglycemia Qualified Code(s): E11.65 - Type 2 diabetes mellitus with hyperglycemia; Z79.4 - long-term (current) use of insulin (2) Diabetic ketoacidosis Qualifiers: Diabetes mellitus type: type 2 Diabetes mellitus complication detail: without coma Qualified Code(s): E11.10 - Type 2 diabetes mellitus with ketoacidosis without coma (3) Alcohol withdrawal Qualifiers: Complication of substance-induced condition: with delirium Qualified Code(s) : F10.231 - Alcohol dependence with withdrawal delirium (4) Anemia Qualifiers: Anemia type: unspecified type Qualified Code(s): D64.9 - Anemia, unspecified <Jorge Alberto Kinney - Last Filed: 05/09/18 19:46> (1) Anemia Qualifiers: Anemia type: unspecified type Qualified Code(s): D64.9 - Anemia, unspecified (2) Alcohol withdrawal Qualifiers: Complication of substance-induced condition: with delirium Qualified Code(s) : F10.231 - Alcohol dependence with withdrawal delirium (3) Diabetes mellitus Qualifiers: Diabetes mellitus type: type 2 Diabetes mellitus fci insulin use: with 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
[2018-05-10 01:38] LABS: Basophils # 0.1 K/mcL (0.0-0.2); Basophils % 1.2 %; Eosinophils # 0.2 K/mcL (0.0-0.6); Hematocrit 33.3 % (35.3-44.9); Hemoglobin 11.3 g/dL (11.5-15.4); Immature Granulocytes % 4.8 % (0-4); Lymphocytes # 3.5 K/mcL (0.6-4.6); Lymphocytes % 33.6 %; Mean Corpuscular HGB Conc 33.9 g/dL (31.6-35.5); Mean Corpuscular Hemoglobin 30.9 pg (28.0-33.3); Mean Platelet Volume 9.9 fL (9.4-12.4); Monocytes # 1.6 K/mcL (0.0-1.3); Monocytes % 15.8 %; Neutrophils # 4.4 K/mcL (1.6-8.9); Nucleated Red Blood Cells 0.2 /100 WBC (0); Platelet Count 208 K/mcL (140-400); Red Blood Count 3.66 M/mcL (3.82-4.97); Red Cell Distribution Width 14.6 % (11.5-14.5); Segmented Neutrophils % 42.6 %
[2018-05-10 02:05] LABS: BUN/Creatinine Ratio 18 (6-26); Blood Urea Nitrogen 6 mg/dL (6-20); Calcium 9.2 mg/dL (8.6-10.3); Carbon Dioxide 23 mEq/L (23-29); Chloride 102 mEq/L (98-107); Glucose 175 mg/dL (70-105); Osmolality,Calculated 282 (280-300); Potassium 3.4 mEq/L (3.5-5.1); Sodium 135 mEq/L (136-145); eGFR For Non-African Americans > 60 (> 60)
[2018-05-10] MEDS: *HR* Heparin 5,000 UNIT/ML VIAL SQ SCH ×2 (04:18→18:42)
[2018-05-10] MEDS: Insulin LISPRO 300 UNITS/3 ML VIAL SQ SCH ×6 (08:43→18:41)
[2018-05-10] MEDS: Thiamine (B-1) 100 MG TABLET PO SCH (08:43)
[2018-05-10] MEDS: Lisinopril 20 MG TABLET PO SCH (08:44)
[2018-05-10] MEDS: Multivit/Ca/Min/Fe/FA 1 TAB TABLET PO SCH (08:44)
[2018-05-10] MEDS: Insulin DETEMIR 100 UNIT/ML X5UNITS SQ SCH (08:44)
[2018-05-10] MEDS: Folic Acid 1 MG TABLET PO SCH (08:44)
[2018-05-10] MEDS: Magnesium Oxide 400 MG TABLET PO SCH (08:44)
--- NOTE | 2018-05-10 10:11 | Discharge Summary ---
<Jorge Alberto Kinney - Last Filed: 05/10/18 13:43> Date of Encounter: 05/10/18 - Discharge Diagnosis (1) Anemia Status: Acute Qualifiers: Anemia type: unspecified type Qualified Code(s): D64.9 - Anemia, unspecified (2) Alcohol withdrawal Status: Resolved Qualifiers: Complication of substance-induced condition: with delirium Qualified Code(s ): F10.231 - Alcohol dependence with withdrawal delirium (3) Diabetes mellitus Status: Chronic Qualifiers: Diabetes mellitus type: type 2 Diabetes mellitus long term care pharmacist insulin use: with residential use Diabetes mellitus complication status: with hyperglycemia Qualified Code(s): E11.65 - Type 2 diabetes mellitus with hyperglycemia; Z79.4 - manager intermediate (current) use of insulin (4) Hypokalemia Status: Resolved (5) Diabetic ketoacidosis Status: Resolved Qualifiers: Diabetes mellitus type: type 2 Diabetes mellitus complication detail: without coma Qualified Code(s): E11.10 - Type 2 diabetes mellitus with ketoacidosis without coma (6) Hyperammonemia Status: Resolved (7) DVT prophylaxis Status: Resolved (8) Blurry vision Status: Acute (9) Tobacco abuse Priority: Secondary Status: Chronic Hospital course: Ms. Anderson is a 38 year old female - Time Spent with Patient Total time spent providing and/or coordinating discharge services: 38min - Discharge Medications Prescriptions: Chlordiazepoxide [Librium] 25 mg PO DAILY 2 Days #2 capsule Insulin Glargine,Hum.rec.anlog [Basaglar Kwikpen U-100] 20 unit SQ BID 15 Days # 6 insuln.pen Home Medications: Pantoprazole Sodium [Protonix] 40 mg PO DAILY 02/10/18 [History] Lisinopril 30 mg PO DAILY 05/03/18 [History] Chlordiazepoxide [Librium] 25 mg PO DAILY 2 Days #2 capsule 05/09/18 [Rx] Insulin Glargine,Hum.rec.anlog [Basaglar Kwikpen U-100] 20 unit SQ BID 15 Days # 6 insuln.pen 05/09/18 [Rx] Allergies/Adverse Reactions: 3 Allergy/AdvReac Type Severity Reaction Status Date / Time No Known Allergies Allergy Verified 02/11/18 16:19 Date of admission: 05/03/18 03:06 Primary care physician: Mason Cleaning CNP Consults: 05/03/18 03:43 Consult to Service Desk Lead [CONS] Routine Reason for SW Consult: Chronic alcohol abuse 05/03/18 05:52 Consult to Critical Care [CONS] Routine Consulting Provider: Pulm Crit Care & Sleep Brittany Reason for Consult: DKA, alcohol withdrawal Call Completed: Yes 05/07/18 12:28 Consult to PICC team [Consult to Invasive Line Access Team] [CONS] Routine Reason for Consult: replace PG to right arm Line Type: EPIV - Constitutional Vitals: Temp Pulse Resp BP Pulse Ox 98.2 F 87 16 129/90 94 05/10/18 11:50 05/10/18 11:50 05/10/18 11:50 05/10/18 11:50 05/10/18 11:50 - Patient Status Disposition: Home, Self-Care Condition: Good - Discharge Instructions Follow Up With: Mason Cleaning CNP [Primary Care Provider] - (Unable to schedule follow up appointment due to office being closed. Please call monday to schedule appointment 7-10 days from date of discharge. ) - Attending Attestation I examined this patient and my medical decision-making was reviewed with the Resident Physician on 05/10/18. I agree with the documented findings, disposition and treatment plan as described except to the extent set forth below. Ms Anderson has been admitted for acute DKA and ETOH withdrawal. Her sugars are now better controlled. She is still having blurry vision - mostly when reading close not far. She is afebrile and ready for discharge home. Exam Alert Comfortable Mucus membranes dry Heart reg and not tachy No wheeze Abd soft No edema Plan D/C home today. Follow up with PCP. <Angelita Christianson - Last Filed: 05/10/18 15:11> - NOTES TO OUTPATIENT PROVIDER Notes to Outpatient Provider: Ms. Anderson is a 38 year old female presented to the ED due to nausea and emesis. She was noted to have glucose of 397 with A1c of 17.2. She reported not taking her insulin as prescribed and has history of chronic alcohol use. She was admitted in the ICU for DKA protocol and was transferred to regular floor. She was treated for alcohol withdrawal and to adequately titrate her glucose. She complained of blurry vision a few days ago. It is associated when looking at close objects but no changes when looking far away. She is having no motor impairment. Her cranial nerves II-XII were intact. She has never followed with an jewelry drilling machine operator or opthomalogist outpatient and needs close follow up given she has long standing uncontrolled diabetes. Orders not resulted at time of discharge: Pending orders 05/10/18 09:57 Magnesium Stat Date of Encounter: 05/10/18 Time of Encounter: 07:45 - Discharge Diagnosis (1) Diabetic ketoacidosis Priority: Primary Status: Resolved Qualifiers: Diabetes mellitus type: type 2 Diabetes mellitus complication detail: without coma Qualified Code(s): E11.10 - Type 2 diabetes mellitus with ketoacidosis without coma (2) Diabetes mellitus Priority: Secondary Status: Chronic Qualifiers: Diabetes mellitus type: type 2 Diabetes mellitus residential insulin use: with residential use Diabetes mellitus complication status: with hyperglycemia Qualified Code(s): E11.65 - Type 2 diabetes mellitus with hyperglycemia; Z79.4 - USP (current) use of insulin (3) Alcohol withdrawal Priority: Secondary Status: Resolved Qualifiers: Complication of substance-induced condition: with delirium Qualified Code(s ): F10.231 - Alcohol dependence with withdrawal delirium (4) Anemia Priority: Secondary Status: Acute Qualifiers: Anemia type: unspecified type Qualified Code(s): D64.9 - Anemia, unspecified (5) Hyperammonemia Priority: Secondary Status: Resolved (6) Blurry vision Priority: Secondary Status: Acute (7) DVT prophylaxis Priority: Secondary Status: Resolved Hospital course: Ms. Turner is a 38 year old female with history of diabetes, alcohol abuse and hypertension who presented to the ED for several days of worsening nausea and occasional episodes of vomiting that felt to her like previous episodes of DKA. Patient reported non compliance with insulin and reported only taking her long-acting insulin at night. She also reported that she neglects to regularly check her blood sugars. She also reported chronic alcohol use stating that she drinks a 5th of liquor x3 a week. Patient reports last drinking the day before her admission. Patient presented initially with an anion gap of 33. Likely due to medication noncompliance. Patient received a total of 3 L in the emergency department, continue IV fluid hydration and insulin infusion per protocol. Potassium replacement initiated. BMP every 4 hours. Lactic acid elevated on admission. No evidence of infection. EKG normal. CIWA protocol ordered and supplemental vitamins (thiamine and folic acid) initiated. CT showed hiatal hernia and fatty liver. Patient's ammonia level was elevated at 122, but lactulose was not given due to electrolyte abnormalities and patient was NPO. She was transferred to ICU for further evaluation. She was observed in ICU for 4 days before being transferred to the floor. Patient was discovered to have mild left upper extremity swelling with ecchymosis in the left antecubital area. Patient stated that it was related to location of IV placement. Investigation of LUE negative for DVT, superficial LUE thrombosis in cephalic vein. No infectious process suspected patient experienced DTs on the floor and was treated with ativan and librium. Patient discharged home in stable condition. She complained of blurry vision when focusing closely and had no vision issues when looking far away. Her Cranial nerves II to XII were intact. She had good consensual constriction and light response to both eyes bilaterally. It is likely due to decrease in glucose. She has never followed up with an office coordinator and needs outpatient follow up. She was instructed to f/u with PCP in 1 week and will need to be seen by office coordinator after discharge. Patient counseled for alcohol cessation as well as importance of tight blood glucose control. Discharge discussed with: patient - Time Spent with Patient Total time spent providing and/or coordinating discharge services: Less than 30 minutes Date of admission: 05/03/18 03:06 Primary care physician: Mason Cleaning CNP Consults: 05/03/18 03:43 Consult to Service Desk Lead [CONS] Routine Reason for SW Consult: Chronic alcohol abuse 05/03/18 05:52 Consult to Critical Care [CONS] Routine Consulting Provider: Pulm Crit Care & Sleep Brittany Reason for Consult: DKA, alcohol withdrawal Call Completed: Yes 05/07/18 12:28 Consult to PICC team [Consult to Invasive Line Access Team] [CONS] Routine Reason for Consult: replace PG to right arm Line Type: EPIV Discharging clinician: Angelita Christianson Anticipated date of discharge: 05/10/18 - Constitutional Vitals: Temp Pulse Resp BP Pulse Ox 98.3 F 83 15 138/97 93 05/10/18 07:12 05/10/18 07:12 05/10/18 07:12 05/10/18 07:12 05/10/18 07:12 General appearance: Present: A&O X 3, pleasant, no acute distress, answers questions appropriately Exam: Gen.: Vitals noted. No acute distress. AAOx3 HEENT: PERRL/EOMI, oropharynx clear, Normocephalic, atraumatic, moist mucus membrane Cardiac: RRR, no murmur, +S1/S2 Pulmonary: CTA bilaterally, no wheezes, rales or rhonchi, equal chest expansion Abdomen: soft, nontender, BS noted, no guarding, no rebound. Extremities: no erythema, nontender, no edema Neuro: A&Ox3, CN II-XII intact, no tremors observed Psych: Appropriate mood and behavior - Head Head exam: Present: atraumatic, normocephalic - Eye Eye exam: Present: EOMI. Absent: conjunctival injection, nystagmus, scleral icterus - Respiratory Respiratory exam: Present: CTAB. Absent: rales, rhonchi, wheezes - Cardiovascular Cardiovascular exam: Present: RRR, +S1, +S2. Absent: clicks - GI/Abdominal GI/Abdominal exam: Present: normal bowel sounds, soft. Absent: firm, rigid, tenderness - Extremities Exam Extremities exam: Present: full ROM, normal inspection, warm. Absent: pedal edema, tenderness - Neurological Exam Neurological exam: Present: alert, oriented X3 - Psychiatric Psychiatric exam: Present: normal affect, normal mood - Skin Skin exam: Present: dry, intact, warm - Patient Status Functional capacity at discharge: independent ambulation Overall status at discharge: patient is progressing back to baseline - Diet and Activity Activity: as per physical therapy Diet: diabetic diet
[2018-05-10 11:51] VITALS: BP 129/90
== END 2018-05-10 20:02 | disposition home or self-care (01) | DRG 420 ==
LOC: SUATTDRO 03:06 → ICNU 03:06 → 3BNU 05-04 14:17
PROVIDERS: ADMIT Pediatrics; ATTEND Internal Medicine

== ENCOUNTER 2018-05-19 22:42 | Inpatient (IN) ==
[2018-05-20] MEDS ORDERED: *HR* LORazepam 2 MG/ML VIAL IVP PRN ×5 (01:29→16:08)
[2018-05-20] MEDS ORDERED: D5% in 0.45% NACL w KCl 20 MEQ/1,000 ML MLS IVC PRN (01:34)
[2018-05-20] MEDS ORDERED: *HR* Dextrose 50 % in Water (Syg) 50 ML SYRINGE IVP PRN ×3 (01:34→16:08)
[2018-05-20] MEDS ORDERED: D5% in 0.45% NACL 1,000 ML IVC PRN (01:34)
[2018-05-20] MEDS ORDERED: Insulin Regular, Human 100 UNIT/ML IV PRN (01:34)
[2018-05-20] MEDS ORDERED: 0.45 % Sodium Chloride w/KCl 20 MEQ/1,000 ML MLS IVC PRN (01:45)
[2018-05-20] MEDS ORDERED: Insulin Human Regular 100 UNIT in 0.9 % Sodium Chloride 100 ML IVC SCH (01:45)
[2018-05-20] MEDS ORDERED: Pantoprazole 40 MG VIAL IVP SCH (01:49)
[2018-05-20] MEDS ORDERED: GI Cocktail 40 ML EACH PO ONE (01:49)
--- NOTE | 2018-05-20 01:55 | Internal Med History&Physical ---
Addendum entered and electronically signed by Eladio Mars MD 05/20/18 20:54: I saw and evaluated the patient. I reviewed the residents note, performed my own physical examination and agree with findings and plan as documented in the residents note. Patient seen and examined on 05/20/18. Patient presents wit DKA and history of alcoholism. Continue DKA and CIWA protocol. Continue to monitor closely. Patient resting in hospital bed. Original Note: Date of Encounter: 05/20/18 Time of Encounter: 01:50 Internal Medicine - H&P: HPI Chief complaint: Chest pain Admitted From: Hospital to Hospital Transfer Plans for Post Hospital Care: Home History of present illness: Ms. Anderson is a 38 year old female was a transfer from [facility] emergency room after presenting with chief complaint of chest pain, nausea, vomiting. This started in the morning. She described her chest pain that is substernal without radiation and worse when she takes a deep breath. On with this patient had difficulty breathing. She denied coughing, sputum production. Patient vomited multiple times. Patient was here a few weeks ago for DKA. She reports she takes 20 units of Levemir twice a day. She does not check her point of her glucose regularly. Reports polydipsia, polyuria, lightheadedness. He reports compliance with insulin since her last admission. She denies any signs of infection including ear pain, ear discharge, neck pain, eye pain, eye discharge, productive sputum, rash, dysuria, open wounds. EKG at [facility] showed sinus tachycardia without ST-T wave changes. The plan was less than 0.03. Patient was given GI cocktail which resolved her chest pain. She was started on DKA protocol and given IV fluids. Patient also has a history of alcohol abuse and reports withdrawals including DTs in the past. She reports her last drink was last Monday. Her ethanol level was less than 10. She drinks vodka. Past Med Surg Social Fam HX - Past Medical History Medical history: diabetes, GERD, hypertension Additional medical history: pancreatitis Psychiatric history: anxiety, depression, other - Past Surgical History Surgical History: other Additional surgical history: tonsillectomy - Social History Smoking Status: Current every day smoker Smokeless Tobacco Status: No Alcohol use: occasionally Drug use: none - Family History Father Living Status: Still Living Hx Family Cardiac Disorders: Yes (HTN) Hx Family Respiratory Disorders: No Hx Family Cancer: Yes Hx Family GI Disorders: No Hx Family Endocrine Disorder: No Hx Family Neuromuscular Disorders: No Hx Family Neurologic Disorders: No Hx Family HEENT Disorders: No Hx Family Autoimmune Disorders: No Internal Medicine - H&P: Meds Lisinopril 30 mg PO DAILY 05/03/18 [History] Insulin Glargine,Hum.rec.anlog [Basaglar Kwikpen U-100] 20 unit SQ BID 15 Days #6 insuln.pen 05/09/18 [Rx] Allergy/AdvReac Type Severity Reaction Status Date / Time No Known Allergies Allergy Verified 05/19/18 20:48 All Systems PM: A 10-system review of systems was performed and is negative for pertinent findings except as documented above in the HPI. Review of systems: Constitutional: Denies fever, chills HEENT: Denies headache, trauma, blurry vision, eye discharge, ear pain, ear discharge neck pain, sore throat, rhinorrhea Heart: For chest pain, denies palpitations, LE edema Lungs: Denies shortness of breath cough Abdomen: Denies abdominal pain, diarrhea reports nausea vomiting MSK: Denies back pain, falls, joint pain Kidney: Denies dysuria, hematuria Skin: Denies rash, ulcers Neuro: Denies numbness and tingling Psych: denies axniety, depression - Constitutional Vitals: Temp Pulse Resp BP Pulse Ox 97.9 F 126 22 155/104 99 05/20/18 01:30 05/20/18 01:30 05/20/18 01:30 05/20/18 01:30 05/20/18 01:30 Exam: General: pleasant, without distress HEENT: Head atraumatic, normocephalic, EOMI, PERRL, absent ear discharge or trauma, Moist Mucous Membranes, uvula midline Neck: nontender to palpation, absent lymphadenopathy, Cardiovascualr: This tachycardia with no murmur, absent gallops or rubs, absent pedal edema, radial pulses 2 out of 4 Lungs: Clear to auscultation bilaterally, not in respiratory distress Abdomen: Soft nontender, nondistended positive bowel sounds, absent hepatomegaly Skin: warm and dry, absent rash, absent open wounds and nodules MSK: absent clubbing, cyanosis, joints without swelling Neuro: Cranial nerves II through XII intact, UE and LE sensation equal bilaterally, UE and LEstrength 5/5, alert oriented 3, Psych: Poor insight and judgment, anxious Internal Med - H&P Results - Labs CBC & Chem 7: 05/20/18 01:58 05/20/18 01:58 - Assessment and plan (1) DKA (diabetic ketoacidosis) Current Visit: Yes Status: Acute Assessment and plan: Anion gap 42 glucose 888 started on dka protocol at [facility] last glucsoe was 543 no signs of infection patient has hx of non-compliance last A1c 17.2 stat bmp Qualifiers: Diabetes mellitus type: type 2 Diabetes mellitus complication detail: without coma Qualified Code(s): E11.10 - Type 2 diabetes mellitus with ketoacidosis without coma (2) GERD (gastroesophageal reflux disease) Current Visit: Yes Status: Acute Assessment and plan: patient reported chest pain on admission trop negative EKG sinus tachycardia with ST-T wave changes this was relieved by GI cocktail likely 2nd to hx of alcohol use IV protonix Qualifiers: Esophagitis presence: esophagitis presence not specified Qualified Code(s): K21.9 - Gastro-esophageal reflux disease without esophagitis (3) Alcohol abuse Current Visit: Yes Status: Chronic Assessment and plan: hx of alcohol abuse patient's last drink was Monday she is tachycardic, has hand tremors alert oriented x3 ciwa protocol (4) Hypertension Current Visit: Yes Status: Chronic Assessment and plan: continue home medication lisinopril Qualifiers: Hypertension type: essential hypertension Qualified Code(s): I10 - Essential (primary) hypertension (5) Leukocytosis Current Visit: Yes Status: Acute Assessment and plan: predominantly neutrophils likely 2nd to stress as patient does not show sings of infection. urinalysis negative lactic acid 5.3 hilary 2nd to dka repeat lactic acid cxr negative Qualifiers: Leukocytosis type: unspecified Qualified Code(s): D72.829 - Elevated white blood cell count, unspecified - Time Spent With Patient Total time spent is greater than 50% in coordination of care (as documented) at patient's floor/unit and/or counseling patient:
[2018-05-20] MEDS: *HR* Heparin 5,000 UNIT/ML VIAL SQ SCH ×2 (02:02→14:48)
[2018-05-20] MEDS: *HR* Promethazine 25 MG/ML VIAL IVP PRN ×4 (02:04→21:32)
[2018-05-20 02:18] LABS: Basophils # 0.3 K/mcL (0.0-0.2); Basophils % 1.3 %; Eosinophils % 0.1 %; Hematocrit 40.1 % (35.3-44.9); Hemoglobin 12.9 g/dL (11.5-15.4); Immature Granulocytes % 2.1 % (0-4); Lymphocytes % 11.9 %; Mean Corpuscular HGB Conc 32.2 g/dL (31.6-35.5); Mean Corpuscular Hemoglobin 31.2 pg (28.0-33.3); Mean Corpuscular Volume 96.9 fL (83.0-100.0); Mean Platelet Volume 11.5 fL (9.4-12.4); Monocytes # 1.4 K/mcL (0.0-1.3); Monocytes % 5.8 %; Neutrophils # 19.5 K/mcL (1.6-8.9); Platelet Count 248 K/mcL (140-400); Red Blood Count 4.14 M/mcL (3.82-4.97); Red Cell Distribution Width 13.6 % (11.5-14.5); Segmented Neutrophils % 78.8 %
[2018-05-20] MEDS: Insulin Human Regular 100 UNIT in 0.9 % Sodium Chloride 100 ML IVC SCH ×2 (02:25→12:00)
[2018-05-20 02:39] LABS: BUN/Creatinine Ratio 19 (6-26); Blood Urea Nitrogen 16 mg/dL (6-20); Calcium 9.1 mg/dL (8.6-10.3); Carbon Dioxide 5 mEq/L (23-29); Chloride 97 mEq/L (98-107); Chol/HDL Ratio 4.3 (0-4.9); Cholesterol 267 mg/dL (< 200); Glucose 557 mg/dL (70-105); HDL Cholesterol 62 mg/dL (40-59); Osmolality,Calculated 307 (280-300); Phosphorous 3.2 mg/dL (2.7-4.5); Potassium 5.3 mEq/L (3.5-5.1); Sodium 135 mEq/L (136-145); Triglycerides 533 mg/dL (< 150); eGFR For Non-African Americans > 60 (> 60)
[2018-05-20 06:28] LABS: BUN/Creatinine Ratio 19 (6-26); Blood Urea Nitrogen 13 mg/dL (6-20); Calcium 8.5 mg/dL (8.6-10.3); Carbon Dioxide 13 mEq/L (23-29); Chloride 108 mEq/L (98-107); Glucose 179 mg/dL (70-105); Osmolality,Calculated 291 (280-300); Potassium 4.1 mEq/L (3.5-5.1); Sodium 138 mEq/L (136-145); eGFR For Non-African Americans > 60 (> 60)
--- NOTE | 2018-05-20 08:38 | Internal Med Progress Note ---
<Anna Zapata - Last Filed: 05/20/18 16:50> Hospitalist Progress Note - Exam Vitals: Temp Pulse Resp BP Pulse Ox 98.5 F 105 17 103/70 97 05/20/18 12:00 05/20/18 14:00 05/20/18 14:00 05/20/18 14:00 05/20/18 14:00 - Time Spent with Patient Total time spent is greater than 50% in coordination of care (as documented) at patient's floor/unit and/or counseling patient: Internal Medicine: Result - Labs CBC & Chem 7: 05/20/18 01:58 05/20/18 10:05 Labs: Short CBC 05/20/18 Range/Units 01:58 WBC 24.8 H (4.3-11.1) K/mcL Hgb 12.9 (11.5-15.4) g/dL Hct 40.1 (35.3-44.9) % Plt Count 248 (140-400) K/mcL Neutrophils # 19.5 H (1.6-8.9) K/mcL BMP 05/20/18 05/20/18 05/20/18 01:58 06:05 10:05 Sodium 135 L D 138 135 L Potassium 5.3 H 4.1 3.5 Chloride 97 L 108 H 109 H Carbon Dioxide 5 L* 13 L 18 L BUN 16 13 13 Creatinine 0.86 0.67 0.59 L Glucose 557 H* 179 H 85 Calcium 9.1 8.5 L 8.2 L Consult Discharge Plan - Plan Referrals: NONE,PCP [Primary Care Provider] - - Attending Attestation I examined this patient and my medical decision-making was reviewed with the Resident Physician Dr Jackson. I agree with the documented findings, disposition and treatment plan as described except to the extent set forth below/addl deta ils below. Ms Anderson has a pmhx DM with episodes of DKA, HTN, routine etoh use who presented to [facility] with complaint of nausea, emesis, heart burn and chest pain. She was found to be in DKA. Insists she ahs been taking prescribed Levemir but does not check bs at home. She received gi cocktail and chest pain/nausea resolved. She was transferred to [facility] and in ICU with gap in 30s on insulin drip which is since resolved. Awake, no current nausea or emesis. no abd pain. epigastric pain and radiates up to sternum. no palpitations, sob. no diarrhea. + hand tremors and feeling as if she is withdrawing from etoh. states last drink was monday which would put her outside the window for w/d. Denies hallucinations or seizures with w/d in past. gen- alert, awake,appears stated age eyes- pupils equal round cv- tachy rate 110s on tele and reg rhythm, normal s1,s2, no murmurs appreciated lungs- ctabl, no wheezing, rhonchi or crackles, normal resp effort abd- soft, non tender, non distended, + bs neuro- AAOx3 DKA ,cause uk at this time, may be due to compliance or perhaps bs were running high on current regimen and it was uk bc she does not ever check them at home, may be related to etoh use -ruling out infectious etiology- at this time none apparent: ua neg, cxr neg, no wounds, no diarrhea -gap now closed, bicarb 18, can transition off insulin gtt, begin to eat, SSI + half her home levemir and will cont to adjust -monitoring of lytes HTN, Bp normotensive, drop to hypotension with home lisinopril this monring Hypotension very unfortunately team was not notified by nursing staff of change in blood pressures this morning. Review of documented BPs range from 80/48 to 90/59 with a documented pressure of 65/40 -i have discussed this situation with ICU nurse for the day and was informed I was not notified of BP changes due to map being >65 and it is not believed 65/40 reading was accurate. I was informed it's icu protocol to go off of maps not systolic readings and i requested to be updated to sbps <90 to help assess for drops in blood pressure that could be indicative of, for example, sepsis. -lisinopril discontinued -IVF 250 cc bolus, no fever, cont to monitor for leukocytosis, if develops fever will send blood cultures Chest pain, suspect reflux the way that she describes it and relief with GI cocktail -trop neg, ekg without acute ischemic changes -cont tele -PPI -given her Bp changes today, tachy and O2 requirement will check a CTA chest and rule out PE and dissection Alcohol Abuse patient's last drink was Monday ciwa protocol , thiamine folate multi vitamin <Marlene Jackson - Last Filed: 05/20/18 17:05> Hospitalist Progress Note - Encounter Date of Encounter: 05/20/18 Time of Encounter: 08:30 - Subjective Interval History: Patient seen and examined. Patient states shes having heartburn with chest pain and nausea. States she feels short of breath. Denies emesis. Denies abdominal pain. Denies any other complaints. Denies urinary or bowel changes. Denies swelling. - Exam Vitals: Temp Pulse Resp BP Pulse Ox 98.9 F 124 22 114/81 96 05/20/18 04:00 05/20/18 06:00 05/20/18 06:00 05/20/18 06:00 05/20/18 06:00 Exam: General: Normal body habitus. Alert and oriented x3. No acute distress. Head: atraumatic, normocephalic. Eye: pupils equal and round. Sclera anicteric. EOMI. Neck: supple. Trachea midline. Lungs: CTAB. No rhonchi, rales, or wheezing. Cardiovascular: Normal S1 & S2. No rubs or gallops. No JVD. Pulse regular. Abdomen: Normal bowel sounds. Mild diffuse tenderness to palpation. No guarding, no rigidity, no rebound. Extremities: No joint swelling, edema, or clubbing. Nontender. Skin: warm, dry, and intact. - Assessment and Plan (1) DKA (diabetic ketoacidosis) Current Visit: Yes Status: Acute Assessment and Plan: History of diabetes. History of medication noncompliance. Recent admission on 05/03 for DKA. Discharged with home insulin 20units levemir BID. Presented with chest pain, N/V. Glucose 888, anion gap 42. Last A1c 17.2. Etiology unknown. Possibly medication noncompliance. No evidence of infection. Started on DKA protocol at [facility]. Today, anion gap closed. Started diabetic diet. Transitioned insulin drip to SQ: 10 units basal BID + mod SSI. Transfer from ICU to when vacancy in . (2) Chest pain Current Visit: Yes Status: Acute Assessment and Plan: Patient presented with chest pain and N/V. Likely secondary to acid reflux. History of GERD and alcohol abuse. Trop negative. EKG sinus tachycardia. No ischemic changes. CXR was negative. Was relieved by GI cocktail. Continue IV protonix. Started Maalox prn today due to continued complaint of heartburn. Check CTA to rule out PE/dissection. (3) Leukocytosis Current Visit: Yes Status: Acute Assessment and Plan: Predominantly neutrophils. Likely secondary to stress. No sign of infection. Urinalysis negative Lactic acid 5.3, likely secondary to DKA. Repeat lactic acid was normal. CXR negative. (4) Hypotension Current Visit: No Status: Acute Assessment and Plan: History of HTN. Was hypotensive today after home Lisinopril. IVF bolus 250cc. Hold home Lisinopril. Continue to monitor BP. (5) Alcohol abuse Current Visit: Yes Status: Chronic Assessment and Plan: Hx of alcohol abuse. Last drink on 05/16, 3 days before admission. EtOH <10. Thiamine/folate/multivitamin. [facility] protocol. DVT Prophylaxis: heparin SQ - Time Spent with Patient Total time spent is greater than 50% in coordination of care (as documented) at patient's floor/unit and/or counseling patient: Internal Medicine: Result - Labs CBC & Chem 7: 05/20/18 01:58 05/20/18 10:05 Labs: Short CBC 05/20/18 Range/Units 01:58 WBC 24.8 H (4.3-11.1) K/mcL Hgb 12.9 (11.5-15.4) g/dL Hct 40.1 (35.3-44.9) % Plt Count 248 (140-400) K/mcL Neutrophils # 19.5 H (1.6-8.9) K/mcL BMP 05/20/18 05/20/18 01:58 06:05 Sodium 135 L D 138 Potassium 5.3 H 4.1 Chloride 97 L 108 H Carbon Dioxide 5 L* 13 L BUN 16 13 Creatinine 0.86 0.67 Glucose 557 H* 179 H Calcium 9.1 8.5 L <Marlene Jackson - Last Filed: 05/20/18 17:05> (1) DKA (diabetic ketoacidosis) Qualifiers: Diabetes mellitus type: type 2 Diabetes mellitus complication detail: without coma Qualified Code(s): E11.10 - Type 2 diabetes mellitus with ketoacidosis without coma (3) Leukocytosis Qualifiers: Leukocytosis type: unspecified Qualified Code(s): D72.829 - Elevated white blood cell count, unspecified (4) Hypotension Qualifiers: Hypotension type: hypotension due to hypovolemia Qualified Code(s): I95.89 - Other hypotension; E86.1 - Hypovolemia
[2018-05-20] MEDS ORDERED: Lisinopril 20 MG TABLET PO SCH (09:00)
[2018-05-20 10:35] LABS: BUN/Creatinine Ratio 22 (6-26); Blood Urea Nitrogen 13 mg/dL (6-20); Calcium 8.2 mg/dL (8.6-10.3); Carbon Dioxide 18 mEq/L (23-29); Chloride 109 mEq/L (98-107); Glucose 85 mg/dL (70-105); Osmolality,Calculated 279 (280-300); Potassium 3.5 mEq/L (3.5-5.1); Sodium 135 mEq/L (136-145); eGFR For Non-African Americans > 60 (> 60)
[2018-05-20] MEDS ORDERED: D5% in Water 1,000 ML IVC PRN ×2 (11:59→16:08)
[2018-05-20] MEDS ORDERED: Dextrose Gel 15 GM/37.5 ML TUBE PO PRN ×4 (11:59→16:08)
[2018-05-20] MEDS ORDERED: Insulin DETEMIR 100 UNIT/ML X5UNITS SQ SCH (12:15)
[2018-05-20] MEDS ORDERED: Mag Hydrox/Al Hydrox/Simeth 30 ML UDC PO PRN ×2 (13:28→16:08)
[2018-05-20] MEDS ORDERED: 0.9 % Sodium Chloride 250 ML IVC ONE (16:28)
[2018-05-20] MEDS ORDERED: Insulin LISPRO 300 UNITS/3 ML VIAL SQ SCH ×3 (16:30→21:00)
[2018-05-20] MEDS ORDERED: Isovue-370 500 ML INFUS..BTL IV ONE (16:33)
[2018-05-20] MEDS: Insulin LISPRO 300 UNITS/3 ML VIAL SQ SCH (16:40)
[2018-05-20] MEDS: Thiamine (B-1) 100 MG, Folic Acid 1 MG, MVI, adult with vitamin K 10 ML in 0.9 % Sodi... IVPB SCH (17:43)
[2018-05-20] MEDS ORDERED: Thiamine (B-1) 100 MG, Folic Acid 1 MG, MVI, adult with vitamin K 10 ML in 0.9 % Sodi... IVPB SCH (18:00)
--- NOTE | 2018-05-20 19:13 | Event Note ---
Date of Encounter: 05/20/18 Time of Encounter: 19:11 Notified by nursing of need to call radiology. Contacted by Dr Evans of radiology with report of small + RLL and lingula pulm artery PEs on CTA, verbally discussed that he sees no evidence of aortic dissection. No evidence of right heart strain. DC heparin sq, begin therapeutic lovenox dosing, check doppler LEs and echocardiogram. She remains afebrile, Bp now 100/67 on room air and not tachycardic. RN updated to plan.
[2018-05-20] MEDS: *HR* Enoxaparin 80 MG/0.8 ML SYRINGE SQ SCH (19:27)
[2018-05-20] MEDS: Insulin DETEMIR 100 UNIT/ML X5UNITS SQ SCH (19:27)
[2018-05-20 19:41] LABS: BUN/Creatinine Ratio 19 (6-26); Blood Urea Nitrogen 10 mg/dL (6-20); Calcium 8.8 mg/dL (8.6-10.3); Carbon Dioxide 20 mEq/L (23-29); Chloride 103 mEq/L (98-107); Glucose 151 mg/dL (70-105); Osmolality,Calculated 274 (280-300); Sodium 131 mEq/L (136-145); eGFR For Non-African Americans > 60 (> 60)
[2018-05-20] MEDS: *HR* LORazepam 2 MG/ML VIAL IVP PRN (21:32)
[2018-05-20] MEDS ORDERED: *HR* Heparin 5,000 UNIT/ML VIAL SQ SCH (22:00)
[2018-05-21] MEDS: *HR* Promethazine 25 MG/ML VIAL IVP PRN ×3 (01:22→10:35)
[2018-05-21] MEDS: Thiamine (B-1) 100 MG, Folic Acid 1 MG, MVI, adult with vitamin K 10 ML in 0.9 % Sodi... IVPB SCH (01:28)
[2018-05-21 04:25] LABS: Basophils # 0.1 K/mcL (0.0-0.2); Basophils % 0.9 %; Eosinophils # 0.1 K/mcL (0.0-0.6); Eosinophils % 1.3 %; Hematocrit 38.3 % (35.3-44.9); Hemoglobin 12.8 g/dL (11.5-15.4); Immature Granulocytes % 0.7 % (0-4); Lymphocytes # 2.9 K/mcL (0.6-4.6); Lymphocytes % 42.4 %; Mean Corpuscular HGB Conc 33.4 g/dL (31.6-35.5); Mean Corpuscular Hemoglobin 31.1 pg (28.0-33.3); Mean Corpuscular Volume 93.2 fL (83.0-100.0); Mean Platelet Volume 10.4 fL (9.4-12.4); Monocytes # 0.3 K/mcL (0.0-1.3); Monocytes % 4.4 %; Neutrophils # 3.4 K/mcL (1.6-8.9); Platelet Count 154 K/mcL (140-400); Red Blood Count 4.11 M/mcL (3.82-4.97); Red Cell Distribution Width 13.8 % (11.5-14.5); Segmented Neutrophils % 50.3 %
[2018-05-21 04:30] LABS: BUN/Creatinine Ratio 15 (6-26); Blood Urea Nitrogen 7 mg/dL (6-20); Calcium 8.6 mg/dL (8.6-10.3); Carbon Dioxide 19 mEq/L (23-29); Chloride 103 mEq/L (98-107); Glucose 171 mg/dL (70-105); Osmolality,Calculated 280 (280-300); Potassium 3.6 mEq/L (3.5-5.1); Sodium 134 mEq/L (136-145); eGFR For Non-African Americans > 60 (> 60)
[2018-05-21] MEDS: *HR* LORazepam 2 MG/ML VIAL IVP PRN ×3 (05:29→19:40)
[2018-05-21] MEDS: *HR* Enoxaparin 80 MG/0.8 ML SYRINGE SQ SCH ×2 (05:45→18:03)
[2018-05-21] MEDS ORDERED: Pantoprazole 40 MG VIAL IVP SCH (06:30)
--- NOTE | 2018-05-21 07:46 | Internal Med Progress Note ---
<Anna Zapata - Last Filed: 05/21/18 13:11> Hospitalist Progress Note - Exam Vitals: Temp Pulse Resp BP Pulse Ox 98.8 F 88 16 120/84 100 05/21/18 08:00 05/21/18 10:00 05/21/18 10:00 05/21/18 10:00 05/21/18 10:00 - Time Spent with Patient Total time spent is greater than 50% in coordination of care (as documented) at patient's floor/unit and/or counseling patient: Internal Medicine: Result - Labs CBC & Chem 7: 05/21/18 03:59 05/21/18 03:59 Labs: Short CBC 05/21/18 Range/Units 03:59 WBC 6.8 D (4.3-11.1) K/mcL Hgb 12.8 (11.5-15.4) g/dL Hct 38.3 (35.3-44.9) % Plt Count 154 (140-400) K/mcL Neutrophils # 3.4 (1.6-8.9) K/mcL BMP 05/20/18 05/21/18 19:11 03:59 Sodium 131 L 134 L Potassium 4.0 3.6 Chloride 103 103 Carbon Dioxide 20 L 19 L BUN 10 7 Creatinine 0.53 L 0.48 L Glucose 151 H 171 H Calcium 8.8 8.6 - Impressions Impressions Chest CTA 05/20/18 16:33 IMPRESSION: 1. Small pulmonary emboli within branches of the right lower lobe and lingular pulmonary arteries. No evidence of right heart strain. 2. Linear areas of atelectasis and/or scarring in both lungs. No definite evidence of pneumonia or other acute pulmonary abnormality. Findings were given to Dr. Simon on 05/20/2018 at 7 p.m. D/ / Jarocho Guzman MD / Jarocho Guzman MD Interpreting Provider: Jarocho Guzman MD Echocardiogram 05/21/18 07:00 Impressions: LVEF 60-65%. Normal LV chamber size, wall thickness and function. Mild left ventricular diastolic dysfunction. RV:LV ratio less than 1.0. Normal right ventricular structure and function. No evidence of pulmonary hypertension. Consult Discharge Plan - Plan Referrals: NONE,PCP [Primary Care Provider] - - Attending Attestation I examined this patient and my medical decision-making was reviewed with the Resident Physician Dr Gill. I agree with the documented findings, disposition and treatment plan as described except to the extent set forth below/addl details below. Ms Anderson has a pmhx DM with episodes of DKA, HTN, routine etoh use who presented to [facility] with complaint of nausea, emesis, heart burn and chest pain. She was found to be in DKA. Insists she ahs been taking prescribed Levemir but does not check bs at home. She received gi cocktail and chest pain/nausea resolved. She was transferred to [facility] and in ICU with gap in 30s on insulin drip which is since resolved. She had cont substernal chest pain and CTA revelaed right sided small LL and lingula PEs, started on lovenox Awake, no current nausea or emesis. no abd pain. no current chest pain. denies hx of blood clots, family hx, recent long travel, was recently hospitalized, denies immobility at home. + cramps in calfs over recent weeks, no calf swelling. No current sob, but sob with exertion. denies fevers, chills. gen- alert, awake,appears stated age cv- reg rate and reg rhythm, normal s1,s2, no murmurs appreciated, no le edema lungs- ctabl, no wheezing, rhonchi or crackles, normal resp effort on ra msk- calf size equal, neg home. abd- soft, non tender, non distended, + bs neuro- AAOx3 DKA ,cause uk, may be due to compliance or perhaps bs were running high on current regimen and it was uk bc she does not ever check them at home, may be related to etoh use -ruling out infectious etiology- at this time none apparent: ua neg, cxr neg, no wounds, no diarrhea, CTA chest no infectious process -bs at goal on levemir 10 units BID, will cont to monitor SSI requirements and adjust levemir as needed -she has glucometer and supplies at home for accu checks she just was not doing it HTN, Bp normotensive, drop to hypotension with home lisinopril 05/21 Now normotensive -leukocytosis resolved, this bp drop does not appear to be sepsis pciture -con to hold home lisinopril -given bp drops and chest pain CTA done and showed small PEs but no evidence heart strain, checking echo, do not at this time believe bp drop related to pe, verbally discussed with radiology and no apparent aoritc dissection, -- more likely medication related at this time -cont to monitor Chest pain, likely 2/2 acute RLL and R lingula PEs Acute PEs, at this time appears unprovoked, though recen hospital admission -trop neg, ekg without acute ischemic changes -CTA without evidence heart strain, will check echo and bl le dopplers -resident team will obtain history re vte ppx last admission -cont therapeutic lovenox dosing GERD- PPI Alcohol Abuse patient's last drink was Monday ciwa protocol , thiamine folate multi vitamin <Shu Gill - Last Filed: 05/21/18 14:25> Hospitalist Progress Note - Encounter Date of Encounter: 05/21/18 Time of Encounter: 07:46 - Subjective Interval History: Pt in ICU for DKA and etoh withdrawal on CIWA protocol. Received ativan overnight for anxiety, CIWA score 1 this morning. States that she feels nauseated and anxious, encouraged her to ask RN for prescribed medications - phenergen and ativan - as needed. Pt was able to eat breakfast. Received 6 doses sliding scale this morning for sugar of 188. Continues to be SOB with exertion and mildly while at rest, explained to pt that she is being treated for pulmonary embolus which is likely causing her SOB. Will continue to treat with lovenox, keep pt on CIWA protocol. Pt receiving 10mg Levemir BID with high sliding scale correction. Will monitor sugars today and make changes as appropriate to regimen as needed. Plan for d/c out of ICU to telemetry today. - Exam Vitals: Temp Pulse Resp BP Pulse Ox 98.4 F 87 16 118/83 98 05/21/18 03:52 05/21/18 06:00 05/21/18 06:00 05/21/18 06:00 05/21/18 06:00 Exam: General: A&O x 3. No acute distress. Well developed, well nourished. Head: atraumatic, normocephalic. ENT: No conjunctival injection, no scleral icterus. PERRLA. EOMI. Oropharynx non- erythematous. mucous membranes moist. Pulm: Lungs CTAB A/P. No wheezes, rales, ronchi. Cardio: RRR no m/r/g. Chest not tender to palpation. Abd: Soft, non-distended. Normoactive bowel sounds. Non-tender to palpation. No guarding. Non rigid. Bruising present below umbilicus consistent with where lovenox injections are being administered. Extremities: Radial pulses 2+ franny, dorsalis pedis/posterior tibialis 2+ franny. No LE edema. No cyanosis, clubbing. Mild tremor present with extension of UE, no asterixis present with F/E of hands. Skin: warm, dry, intact. No rashes. Psych: Appropriate mood and affect. Answers questions appropriately. Cooperative with exam. Seems anxious. - Assessment and Plan (1) GERD (gastroesophageal reflux disease) Current Visit: Yes Status: Acute Assessment and Plan: IV protonix, transition to PO meds as part of discharge planning - continue maalox prn as needed (2) Leukocytosis Current Visit: Yes Status: Resolved Assessment and Plan: -WBC 6.8 - UA negative, CXR normal - lactic 1.6 (3) Alcohol abuse Current Visit: Yes Status: Chronic Assessment and Plan: Hx of alcohol abuse, last drink 05/16, 3 days [employer] EtOH <10 Thiamine/folate/MV CIWA protocol plan to continue librium at d/c -recommend outpt substance abuse counseling (4) Hypotension Current Visit: No Status: Resolved Assessment and Plan: Resolved, vitals have been 130s/80s - hold home lisinopril - continue to monitor (5) Diabetic ketoacidosis Current Visit: No Status: Resolved Assessment and Plan: Gap closed, potassium 3.6, 10mg BID levemir, with high sliding scale in place, hypoglycemia protocol in place, pt eating and drinking. - plan to transfer to telemetry today - recommend diabetes counseling DVT Prophylaxis: Lovenox 70mg SQ Q12 - Time Spent with Patient Total time spent is greater than 50% in coordination of care (as documented) at patient's floor/unit and/or counseling patient: less than 15 minutes Plan of Care Discussed with: patient Internal Medicine: Result - Labs CBC & Chem 7: 05/21/18 03:59 10/22/18 03:59 Labs: Short CBC 05/21/18 Range/Units 03:59 WBC 6.8 D (4.3-11.1) K/mcL Hgb 12.8 (11.5-15.4) g/dL Hct 38.3 (35.3-44.9) % Plt Count 154 (140-400) K/mcL Neutrophils # 3.4 (1.6-8.9) K/mcL BMP 05/20/18 05/20/18 05/21/18 10:05 19:11 03:59 Sodium 135 L 131 L 134 L Potassium 3.5 4.0 3.6 Chloride 109 H 103 103 Carbon Dioxide 18 L 20 L 19 L BUN 13 10 7 Creatinine 0.59 L 0.53 L 0.48 L Glucose 85 151 H 171 H Calcium 8.2 L 8.8 8.6 - Impressions Impressions Chest CTA 05/20/18 16:33 IMPRESSION: 1. Small pulmonary emboli within branches of the right lower lobe and lingular pulmonary arteries. No evidence of right heart strain. 2. Linear areas of atelectasis and/or scarring in both lungs. No definite evidence of pneumonia or other acute pulmonary abnormality. Findings were given to Dr. Simon on 05/20/2018 at 7 p.m. D/ / Jarocho Guzman MD / Jarocho Guzman MD Interpreting Provider: Jarocho Guzman MD <Shu Gill - Last Filed: 05/21/18 14:25> (1) GERD (gastroesophageal reflux disease) Qualifiers: Esophagitis presence: esophagitis presence not specified Qualified Code(s): K21.9 - Gastro-esophageal reflux disease without esophagitis (2) Leukocytosis Qualifiers: Leukocytosis type: unspecified Qualified Code(s): D72.829 - Elevated white blood cell count, unspecified (4) Hypotension Qualifiers: Hypotension type: hypotension due to hypovolemia Qualified Code(s): I95.89 - Other hypotension; E86.1 - Hypovolemia (5) Diabetic ketoacidosis Qualifiers: Diabetes mellitus type: type 2 Diabetes mellitus complication detail: without coma Qualified Code(s): E11.10 - Type 2 diabetes mellitus with ketoacidosis without coma
[2018-05-21] MEDS: Insulin LISPRO 300 UNITS/3 ML VIAL SQ SCH ×3 (08:01→20:17)
[2018-05-21] MEDS: Insulin DETEMIR 100 UNIT/ML X5UNITS SQ SCH ×2 (08:01→20:17)
[2018-05-21] MEDS ORDERED: Lisinopril 20 MG TABLET PO SCH (09:00)
[2018-05-21] MEDS ORDERED: *HR* LORazepam 2 MG/ML VIAL IVP PRN ×2 (14:08)
[2018-05-21] MEDS ORDERED: Dextrose Gel 15 GM/37.5 ML TUBE PO PRN ×2 (14:08)
[2018-05-21] MEDS ORDERED: Mag Hydrox/Al Hydrox/Simeth 30 ML UDC PO PRN (14:08)
[2018-05-21] MEDS ORDERED: *HR* Dextrose 50 % in Water (Syg) 50 ML SYRINGE IVP PRN (14:08)
[2018-05-21] MEDS ORDERED: D5% in Water 1,000 ML IVC PRN (14:08)
[2018-05-21] MEDS ORDERED: Thiamine (B-1) 100 MG, Folic Acid 1 MG, MVI, adult with vitamin K 10 ML in 0.9 % Sodi... IVPB SCH (18:00)
[2018-05-22] MEDS: *HR* Promethazine 25 MG/ML VIAL IVP PRN ×3 (01:16→23:07)
[2018-05-22] MEDS: *HR* LORazepam 2 MG/ML VIAL IVP PRN ×4 (04:07→23:06)
[2018-05-22 04:14] LABS: BUN/Creatinine Ratio 9 (6-26); Blood Urea Nitrogen 4 mg/dL (6-20); Calcium 8.7 mg/dL (8.6-10.3); Carbon Dioxide 21 mEq/L (23-29); Chloride 106 mEq/L (98-107); Glucose 232 mg/dL (70-105); Osmolality,Calculated 286 (280-300); Potassium 3.1 mEq/L (3.5-5.1); Sodium 136 mEq/L (136-145); eGFR For Non-African Americans > 60 (> 60)
[2018-05-22] MEDS: *HR* Enoxaparin 80 MG/0.8 ML SYRINGE SQ SCH ×2 (05:30→17:53)
[2018-05-22] MEDS: Insulin LISPRO 300 UNITS/3 ML VIAL SQ SCH ×5 (06:12→20:49)
[2018-05-22] MEDS ORDERED: Pantoprazole 40 MG VIAL IVP SCH (06:30)
[2018-05-22 07:23] LABS: Magnesium 1.8 mg/dL (1.6-2.6)
[2018-05-22] MEDS: Insulin DETEMIR 100 UNIT/ML X5UNITS SQ SCH ×2 (09:59→20:48)
--- NOTE | 2018-05-22 11:24 | Internal Med Progress Note ---
<Jorge Alberto Kinney - Last Filed: 05/22/18 13:57> Hospitalist Progress Note - Exam Vitals: Temp Pulse Resp BP Pulse Ox 98.2 F 97 18 139/108 99 05/22/18 11:28 05/22/18 11:28 05/22/18 11:28 05/22/18 11:28 05/22/18 11:28 - Assessment and Plan (1) Hypokalemia Current Visit: No Status: Acute Assessment and Plan: New today. Replace. (2) High anion gap metabolic acidosis Current Visit: No Status: Resolved (3) Diabetic ketoacidosis Current Visit: No Status: Resolved (4) Pulmonary embolus Current Visit: Yes Status: Acute Assessment and Plan: On Lovenox. Haines NOAC. (5) GERD (gastroesophageal reflux disease) Current Visit: Yes Status: Chronic (6) Alcohol abuse Current Visit: Yes Status: Chronic (7) Hypertension Current Visit: Yes Status: Chronic (8) Tobacco abuse Current Visit: No Status: Chronic (9) Noncompliance with medication regimen Current Visit: Yes Status: Chronic - Time Spent with Patient Total time spent is greater than 50% in coordination of care (as documented) at patient's floor/unit and/or counseling patient: Internal Medicine: Result - Labs CBC & Chem 7: 05/21/18 03:59 05/22/18 03:30 Labs: BMP 05/22/18 03:30 Sodium 136 Potassium 3.1 L Chloride 106 Carbon Dioxide 21 L BUN 4 L Creatinine 0.44 L Glucose 232 H Calcium 8.7 Consult Discharge Plan - Plan Referrals: Maryellen Mcgowan MD [Non-Partnered Physician] - 05/31/18 10:45 am (appt is in [facility]) - Attending Attestation I examined this patient and my medical decision-making was reviewed with the Resident Physician on 05/22/18. I agree with the documented findings, disposition and treatment plan as described except to the extent set forth below. Ms Anderson is currently admitted for acute DKA and PE. She remains moderate to high risk due to potential for worsening clinical status. Ms Anderson feels OK but has had some intermittent nausea. No fever or chills. No further CP or SOB. Tolerating Lovenox. No diarrhea. Exam alert Comfortable at this time Mucus membranes dry Heart reg and not tachy Lungs clear currently Abd soft and nontender at this time No edema Moves all extremities equally. I/P 1. DKA - resolved 2. PE - need to address anticoagulation. She is noncompliant with meds (i.e. insulin) so do not feel Coumadin is a choice. Will haines check NOAC. 3. ETOH abuse and withdrawal Further diagnoses and plan as above. <Uriel Rodgers - Last Filed: 05/22/18 17:52> Hospitalist Progress Note - Encounter Date of Encounter: 05/22/18 Time of Encounter: 10:00 - Subjective Interval History: Patient seen and examined resting comfortably in bed. Patient reports nausea and vomiting this morning, which has improved with Phenergan use. She continues to have elevated blood glucose levels. Patient reports ambulating to the bathroom this morning without difficulty. She remains on Lovenox injections for pulmonary embolism and is awaiting haines check on NOAC - Exam Vitals: Temp Pulse Resp BP Pulse Ox 98.3 F 79 19 123/93 98 05/22/18 07:43 05/22/18 07:43 05/22/18 07:43 05/22/18 07:43 05/22/18 07:43 Exam: General appearance: Present: cooperative, pleasant, no acute distress, answers questions appropriately, Awake - Head Head exam: Present: atraumatic, normocephalic - Eye Eye exam: Present: EOMI, conjuntiva pink, sclera anicteric - ENT ENT exam: Present: mucous membranes moist, normal oropharynx - Neck Neck exam general surgery: Present: supple, trachea midline. Absent: lymphadenopathy - Respiratory Respiratory exam: Present: CTAB. Absent: accessory muscle use, rales, rhonchi, wheezes - Cardiovascular Cardiovascular exam: Present: RRR, +S1, +S2. Absent: diastolic murmur, gallop, rubs, systolic murmur - GI/Abdominal GI/Abdominal exam: Present: normal bowel sounds, soft, no peritoneal signs. Absent: distended, tenderness - Extremities Exam Extremities exam: Present: warm, radial pulses palpable and symmetrical. Absent: calf tenderness, cyanotic, pedal edema - Neurological Exam Neurological exam: Present: CN II-XII intact, oriented X3, no focal deficits. Absent: pronater drift, facial droop, speech deficit - Psychiatric Psychiatric exam: Present: normal affect, normal mood - Skin Skin exam: Present: dry, intact, warm - Assessment and Plan (1) Pulmonary embolus Current Visit: Yes Status: Acute Assessment and Plan: Acute PEs, at this time appears unprovoked, although patient is likely not very mobile due to heavy alcoholism and had recent hospital admission Trop neg, ekg without acute ischemic changes CTA revealed small pulmonary emboli within branches of the right lower lobe and lingular pulmonary arteries, without evidence heart strain, BLE venous ultrasound preliminary report appears negative for thrombus. Cont therapeutic lovenox dosing. She will need to anticoagulation upon discharge but is noncompliant with meds (i.e. insulin) so do not feel Coumadin is a choice. Will haines check NOAC. (2) Diabetic ketoacidosis Current Visit: Yes Status: Resolved Assessment and Plan: DKA may be due to non-compliance or perhaps bs were running high on current regimen and it was unknown bc she does not ever check them at home, or may be r elated to etoh use Ruled out infectious etiology- at this time none apparent: ua neg, cxr neg, no wounds, no diarrhea, CTA chest no infectious process BS at goal on levemir 10 units BID, will cont to monitor SSI requirements and adjust levemir as needed She has glucometer and supplies at home for accu checks she just was not using it (3) Noncompliance with medication regimen Current Visit: Yes Status: Chronic Assessment and Plan: Hemoglobin A1c level 17.2 Patient has glucometer and supplies at home for accu checks she just was not using them She will need to anticoagulation upon discharge but is noncompliant with meds (i.e. insulin) so do not feel Coumadin is a choice. Will haines check NOAC. 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 Continue Thiamine/folate/MV Continue CIWA protocol Plan to continue librium at d/c Recommend outpt substance abuse counseling (5) Alcohol withdrawal Current Visit: No Status: Resolved Assessment and Plan: Ativan per CIWA protocol (6) Hypertension, essential Current Visit: No Status: Chronic Assessment and Plan: Blood pressure stable Resume hold home lisinopril Continue to monitor (7) GERD (gastroesophageal reflux disease) Current Visit: Yes Status: Chronic Assessment and Plan: Stop IV protonix, transition to PO PPI once tolerating PO intake Continue maalox prn as needed DVT Prophylaxis: Lovenox 70mg SQ Q12 - Time Spent with Patient Total time spent is greater than 50% in coordination of care (as documented) at patient's floor/unit and/or counseling patient: Internal Medicine: Result - Labs CBC & Chem 7: 05/21/18 03:59 05/22/18 03:30 Labs: BMP 05/22/18 03:30 Sodium 136 Potassium 3.1 L Chloride 106 Carbon Dioxide 21 L BUN 4 L Creatinine 0.44 L Glucose 232 H Calcium 8.7 - Pulse Oximetry Interpretation Digit-Finger Pulse Oximetry Readin (On RA) - Impressions Impressions Echocardiogram 05/21/18 07:00 Impressions: LVEF 60-65%. Normal LV chamber size, wall thickness and function. Mild left ventricular diastolic dysfunction. RV:LV ratio less than 1.0. Normal right ventricular structure and function. No evidence of pulmonary hypertension. <Jorge Alberto Kinney - Last Filed: 05/22/18 13:57> (3) Diabetic ketoacidosis Qualifiers: Diabetes mellitus type: type 2 Diabetes mellitus complication detail: without coma Qualified Code(s): E11.10 - Type 2 diabetes mellitus with ketoacidosis without coma (4) Pulmonary embolus Qualifiers: Pulmonary embolism type: other Chronicity: acute Acute cor pulmonale presence: without acute cor pulmonale Qualified Code(s): I26.99 - Other pulmonary embolism without acute cor pulmonale (5) GERD (gastroesophageal reflux disease) Qualifiers: Esophagitis presence: esophagitis presence not specified Qualified Code(s): K21.9 - Gastro-esophageal reflux disease without esophagitis (7) Hypertension Qualifiers: Hypertension type: essential hypertension Qualified Code(s): I10 - Essential (primary) hypertension <Uriel Rodgers - Last Filed: 05/22/18 17:52> (1) Pulmonary embolus Qualifiers: Pulmonary embolism type: other Chronicity: acute Acute cor pulmonale presence: without acute cor pulmonale Qualified Code(s): I26.99 - Other pulmonary embolism without acute cor pulmonale (2) Diabetic ketoacidosis Qualifiers: Diabetes mellitus type: type 2 Diabetes mellitus complication detail: without coma Qualified Code(s): E11.10 - Type 2 diabetes mellitus with ketoacidosis without coma (4) Alcohol dependence Qualifiers: Substance use status: in withdrawal Complication of substance-induced condition: uncomplicated Qualified Code(s): F10.230 - Alcohol dependence with withdrawal, uncomplicated (5) Alcohol withdrawal Qualifiers: Complication of substance-induced condition: with delirium Qualified Code(s): F10.231 - Alcohol dependence with withdrawal delirium (7) GERD (gastroesophageal reflux disease) Qualifiers: Esophagitis presence: esophagitis presence not specified Qualified Code(s): K21.9 - Gastro-esophageal reflux disease without esophagitis
[2018-05-22] MEDS ORDERED: Thiamine (B-1) 100 MG, Folic Acid 1 MG, MVI, adult with vitamin K 10 ML in 0.9 % Sodi... IVPB SCH (18:00)
[2018-05-23] MEDS: *HR* Promethazine 25 MG/ML VIAL IVP PRN (04:21)
[2018-05-23] MEDS: *HR* LORazepam 2 MG/ML VIAL IVP PRN ×4 (04:21→21:22)
[2018-05-23 05:37] LABS: Prothrombin Time 10.8 Seconds (9.4-12.1)
[2018-05-23 05:46] LABS: BUN/Creatinine Ratio 15 (6-26); Blood Urea Nitrogen 7 mg/dL (6-20); Carbon Dioxide 22 mEq/L (23-29); Chloride 106 mEq/L (98-107); Glucose 330 mg/dL (70-105); Osmolality,Calculated 291 (280-300); Potassium 3.5 mEq/L (3.5-5.1); Sodium 135 mEq/L (136-145); eGFR For Non-African Americans > 60 (> 60)
[2018-05-23] MEDS: *HR* Enoxaparin 80 MG/0.8 ML SYRINGE SQ SCH (06:27)
[2018-05-23] MEDS: Lisinopril 20 MG TABLET PO SCH (09:00)
[2018-05-23] MEDS: Insulin LISPRO 300 UNITS/3 ML VIAL SQ SCH ×4 (09:01→21:21)
--- NOTE | 2018-05-23 09:14 | Internal Med Progress Note ---
<Shu Gill - Last Filed: 05/23/18 14:13> Hospitalist Progress Note - Encounter Date of Encounter: 05/23/18 Time of Encounter: 09:11 - Subjective Interval History: 38F with PMH ETOH abuse/withdrawal T2DM admitted for DKA. Echo 05/21 shows EF 60-65% with no wall motion abn. Muse checking NOAC as she is noncompliant with meds so coumadin not prudent. ETOH abuse/withdrawal on CIWA. Active PE on lovenox. CIWA score 12 this morning and got 2 of Ativan. Score for auditory hallucinations, anxiety, ARAUJO, sweats, tremors, nausea. - Exam Vitals: Temp Pulse Resp BP Pulse Ox 98.4 F 81 16 135/94 97 05/23/18 06:40 05/23/18 06:40 05/23/18 06:40 05/23/18 06:40 05/23/18 06:40 Exam: General: A&O x 3. No acute distress. Well developed, well nourished. Head: atraumatic, normocephalic. ENT: No conjunctival injection, no scleral icterus. PERRLA. EOMI. Oropharynx non- erythematous. mucous membranes moist. Neuro: No focal deficits, no speech deficit, no facial droop, mentating we ll.Mild tremor in franny UE with extension. Pulm: Lungs CTAB A/P. No wheezes, rales, ronchi. Cardio: RRR no m/r/g. Chest not tender to palpation. Abd: Soft, non-distended. Normoactive bowel sounds. Non-tender to palpation. No guarding. Non rigid. Bruising present in franny LE Extremities: Radial pulses 2+ franny, dorsalis pedis/posterior tibialis 2+ franny. No LE edema. No cyanosis, clubbing. Skin: warm, dry, intact. No rashes. Psych: Appropriate mood and affect. Answers questions appropriately. Cooperative with exam. - Assessment and Plan (1) GERD (gastroesophageal reflux disease) Current Visit: Yes Status: Chronic Assessment and Plan: IV protonix, transition to PO meds as part of discharge planning - continue maalox prn as needed (2) Leukocytosis Current Visit: Yes Status: Resolved Assessment and Plan: -WBC 6.8 - UA negative, CXR normal - lactic 1.6 (3) Alcohol abuse Current Visit: Yes Status: Chronic Assessment and Plan: Hx of alcohol abuse, last drink 05/16, 3 days [employer] EtOH <10 Thiamine/folate/MV CIWA protocol - Score 12 this morning, got 2mg Ativan plan to continue librium at d/c -recommend outpt substance abuse counseling (4) Diabetic ketoacidosis Current Visit: Yes Status: Resolved Assessment and Plan: Resolved DVT Prophylaxis: Lovenox 70mg SQ Q12 - Time Spent with Patient Total time spent is greater than 50% in coordination of care (as documented) at patient's floor/unit and/or counseling patient: less than 15 minutes Plan of Care Discussed with: patient Internal Medicine: Result - Labs CBC & Chem 7: 05/21/18 03:59 05/23/18 05:15 Labs: BMP 05/23/18 05:15 Sodium 135 L Potassium 3.5 Chloride 106 Carbon Dioxide 22 L BUN 7 Creatinine 0.46 L Glucose 330 H Calcium 9.0 - ABG Interpretation ABG results: PT/INR, D-dimer PT 10.8 Seconds (9.4-12.1) 05/23/18 05:15 Consult Discharge Plan - Plan Referrals: Maryellen Mcgowan MD [Non-Partnered Physician] - 05/31/18 10:45 am (appt is in [facility]) Prescriptions: Rivaroxaban [Xarelto] 1 dose PO AD 30 Days #1 pack <Jorge Alberto Kinney - Last Filed: 05/23/18 16:58> Hospitalist Progress Note - Exam Vitals: Temp Pulse Resp BP Pulse Ox 98.2 F 97 16 140/84 98 05/23/18 16:23 05/23/18 16:23 05/23/18 16:23 05/23/18 16:23 05/23/18 16:23 - Assessment and Plan (1) Alcohol dependence Current Visit: No Status: Chronic (2) Hypertension, essential Current Visit: No Status: Chronic (3) Diabetic ketoacidosis Current Visit: Yes Status: Resolved (4) GERD (gastroesophageal reflux disease) Current Visit: Yes Status: Chronic (5) Pulmonary embolus Current Visit: Yes Status: Acute (6) Noncompliance with medication regimen Current Visit: Yes Status: Chronic - Time Spent with Patient Total time spent is greater than 50% in coordination of care (as documented) at patient's floor/unit and/or counseling patient: Internal Medicine: Result - Labs CBC & Chem 7: 05/21/18 03:59 05/23/18 05:15 Labs: BMP 05/23/18 05:15 Sodium 135 L Potassium 3.5 Chloride 106 Carbon Dioxide 22 L BUN 7 Creatinine 0.46 L Glucose 330 H Calcium 9.0 - ABG Interpretation ABG results: PT/INR, D-dimer PT 10.8 Seconds (9.4-12.1) 05/23/18 05:15 - Attending Attestation I examined this patient and my medical decision-making was reviewed with the Resident Physician on 05/23/18. I agree with the documented findings, disp osition and treatment plan as described except to the extent set forth below. Ms Anderson is currently admitted for DKA, ETOH withdrawal and PE. She remains moderate to high risk due to potential for worsening clinical status. Ms Anderson is resting at this time. Still requiring IV Ativan. No fever or chills. Xarelto needs preauthorization. Exam alert comfortable Mucus membranes dry Heart reg No wheeze abd soft No edema I/P 1. DKA - resolved 2. ETOH withdrawal - on CIWA 3. PE - awaiting approval for NOAC. I know that patient is high risk for anticoagulation due to ETOH but high risk for recurrent clot as well. No hx of falls at this time. Do not feel she is a good candidate for coumadin due to her hx of noncompliance and need for monitoring of medication. Further diagnoses and plan as above. <Shu Gill - Last Filed: 05/23/18 14:13> (1) GERD (gastroesophageal reflux disease) Qualifiers: Esophagitis presence: esophagitis presence not specified Qualified Code(s): K21.9 - Gastro-esophageal reflux disease without esophagitis (2) Leukocytosis Qualifiers: Leukocytosis type: unspecified Qualified Code(s): D72.829 - Elevated white blood cell count, unspecified (4) Diabetic ketoacidosis Qualifiers: Diabetes mellitus type: type 2 Diabetes mellitus complication detail: without coma Qualified Code(s): E11.10 - Type 2 diabetes mellitus with ketoacidosis without coma <Jorg eAlberto Kinney - Last Filed: 05/23/18 16:58> (1) Alcohol dependence Qualifiers: Substance use status: in withdrawal Complication of substance-induced condition: uncomplicated Qualified Code(s): F10.230 - Alcohol dependence with withdrawal, uncomplicated (3) Diabetic ketoacidosis Qualifiers: Diabetes mellitus type: type 2 Diabetes mellitus complication detail: without coma Qualified Code(s): E11.10 - Type 2 diabetes mellitus with ketoacidosis without coma (4) GERD (gastroesophageal reflux disease) Qualifiers: Esophagitis presence: esophagitis presence not specified Qualified Code(s): K21.9 - Gastro-esophageal reflux disease without esophagitis (5) Pulmonary embolus Qualifiers: Pulmonary embolism type: other Chronicity: acute Acute cor pulmonale presence: without acute cor pulmonale Qualified Code(s): I26.99 - Other pulmonary embolism without acute cor pulmonale
[2018-05-23] MEDS: Insulin DETEMIR 100 UNIT/ML X5UNITS SQ SCH ×2 (13:07→21:21)
[2018-05-23] MEDS: Folic Acid 1 MG TABLET PO SCH (16:58)
[2018-05-23] MEDS: Thiamine (B-1) 100 MG TABLET PO SCH (16:58)
[2018-05-23] MEDS: Multivit/Ca/Min/Fe/FA 1 TAB TABLET PO SCH (16:58)
[2018-05-23] MEDS: *HR* Rivaroxaban 15 MG TABLET PO SCH (16:58)
[2018-05-24] MEDS: *HR* LORazepam 2 MG/ML VIAL IVP PRN ×3 (01:44→09:32)
[2018-05-24 05:34] LABS: Basophils % 0.6 %; Eosinophils # 0.3 K/mcL (0.0-0.6); Hematocrit 32.3 % (35.3-44.9); Immature Granulocytes % 1.9 % (0-4); Lymphocytes # 2.9 K/mcL (0.6-4.6); Lymphocytes % 39.9 %; Mean Corpuscular HGB Conc 33.4 g/dL (31.6-35.5); Mean Corpuscular Hemoglobin 30.9 pg (28.0-33.3); Mean Corpuscular Volume 92.3 fL (83.0-100.0); Mean Platelet Volume 10.1 fL (9.4-12.4); Monocytes # 0.6 K/mcL (0.0-1.3); Monocytes % 8.9 %; Neutrophils # 3.2 K/mcL (1.6-8.9); Nucleated Red Blood Cells 0.3 /100 WBC (0); Platelet Count 214 K/mcL (140-400); Red Cell Distribution Width 13.7 % (11.5-14.5); Segmented Neutrophils % 44.7 %
[2018-05-24 05:38] LABS: Hemoglobin 10.8 g/dL (11.5-15.4)
[2018-05-24] MEDS: *HR* Rivaroxaban 15 MG TABLET PO SCH ×2 (05:44→17:19)
[2018-05-24 05:50] LABS: BUN/Creatinine Ratio 23 (6-26); Blood Urea Nitrogen 10 mg/dL (6-20); Calcium 9.5 mg/dL (8.6-10.3); Carbon Dioxide 24 mEq/L (23-29); Chloride 102 mEq/L (98-107); Glucose 239 mg/dL (70-105); Osmolality,Calculated 287 (280-300); Sodium 135 mEq/L (136-145); eGFR For Non-African Americans > 60 (> 60)
[2018-05-24] MEDS ORDERED: Insulin LISPRO 300 UNITS/3 ML VIAL SQ SCH (07:48)
[2018-05-24] MEDS: Multivit/Ca/Min/Fe/FA 1 TAB TABLET PO SCH (09:29)
[2018-05-24] MEDS: Folic Acid 1 MG TABLET PO SCH (09:29)
[2018-05-24] MEDS: Thiamine (B-1) 100 MG TABLET PO SCH (09:29)
[2018-05-24] MEDS: Lisinopril 20 MG TABLET PO SCH (09:30)
[2018-05-24] MEDS: Insulin LISPRO 300 UNITS/3 ML VIAL SQ SCH ×2 (09:31→17:25)
[2018-05-24] MEDS: Insulin DETEMIR 100 UNIT/ML X5UNITS SQ SCH ×2 (09:32→20:44)
--- NOTE | 2018-05-24 10:43 | Internal Med Progress Note ---
<Shu Gill Stephanie - Last Filed: 05/24/18 12:42> Hospitalist Progress Note - Encounter Date of Encounter: 05/24/18 Time of Encounter: 07:40 - Subjective Interval History: 38F with PMH ETOH abuse/withdrawal T2DM admitted for DKA. Echo 05/21 shows EF 60-65% with no wall motion abn. CT demonstrated small PEs, was started on Love nox, transitioned to PO Xarelto 15mg BID. Genetic workup for coagulation disorders pending. Plan to transition from IV Ativan to PO Ativan and continue CIWA scoring. Pt received 4mg since yesterday, continues to score for endorsing auditory hallucinations, tremor, nausea, emotional lability. Pt does not have social support in place to maintain sobriety and is high risk for bleed on AC medication. Pt endorses planning to continue insulin, but does not have plan for sobriety. Will maintain inpatient status through today. - Exam Vitals: Temp Pulse Resp BP Pulse Ox 98.0 F 90 20 146/107 96 05/24/18 05:00 05/24/18 07:16 05/24/18 07:16 05/24/18 07:16 05/24/18 07:16 Exam: General: A&O x 3. No acute distress. Well developed, well nourished. Head: atraumatic, normocephalic. ENT: No conjunctival injection, no scleral icterus. PERRLA. EOMI. Oropharynx non- erythematous. mucous membranes moist. Neuro: No focal deficits, no speech deficit, no facial droop, mentating well.Mild tremor in franny UE with extension. Pulm: Lungs CTAB A/P. No wheezes, rales, ronchi. Cardio: RRR no m/r/g. Chest not tender to palpation. Abd: Soft, non-distended. Normoactive bowel sounds. Non-tender to palpation. No guarding. Non rigid. Bruising present in franny LE Extremities: Radial pulses 2+ franny, dorsalis pedis/posterior tibialis 2+ franny. No LE edema. No cyanosis, clubbing. Skin: warm, dry, intact. No rashes. Psych: Appropriate mood and affect. Answers questions appropriately. Cooperative with exam. - Assessment and Plan (1) GERD (gastroesophageal reflux disease) Current Visit: Yes Status: Chronic Assessment and Plan: -maalox prn -prilosec 20mg QD (2) Leukocytosis Current Visit: Yes Status: Resolved Assessment and Plan: resolved (3) Alcohol abuse Current Visit: Yes Status: Chronic (4) Diabetic ketoacidosis Current Visit: Yes Status: Resolved Assessment and Plan: resolved DVT Prophylaxis: Xarelto 15mg BID - Time Spent with Patient Total time spent is greater than 50% in coordination of care (as documented) at patient's floor/unit and/or counseling patient: less than 15 minutes Plan of Care Discussed with: patient Internal Medicine: Result - Labs CBC & Chem 7: 05/24/18 05:00 05/24/18 05:00 Labs: Short CBC 05/24/18 Range/Units 05:00 WBC 7.2 (4.3-11.1) K/mcL Hgb 10.8 L D (11.5-15.4) g/dL Hct 32.3 L (35.3-44.9) % Plt Count 214 (140-400) K/mcL Neutrophils # 3.2 (1.6-8.9) K/mcL BMP 05/24/18 05:00 Sodium 135 L Potassium 4.0 Chloride 102 Carbon Dioxide 24 BUN 10 Creatinine 0.43 L Glucose 239 H Calcium 9.5 - ABG Interpretation ABG results: PT/INR, D-dimer PT 10.8 Seconds (9.4-12.1) 05/23/18 05:15 Consult Discharge Plan - Plan Referrals: Maryellen Mcgowan MD [Non-Partnered Physician] - 05/31/18 10:45 am (appt is in [facility]) Prescriptions: Rivaroxaban [Xarelto] 1 dose PO AD 30 Days #1 pack <Jorge Alberto Kinney - Last Filed: 05/24/18 14:34> Hospitalist Progress Note - Exam Vitals: Temp Pulse Resp BP Pulse Ox 98.0 F 90 20 146/107 96 05/24/18 05:00 05/24/18 07:16 05/24/18 07:16 05/24/18 07:16 05/24/18 07:16 - Assessment and Plan (1) Alcohol dependence Current Visit: No Status: Chronic (2) Hypertension, essential Current Visit: No Status: Chronic (3) Diabetic ketoacidosis Current Visit: Yes Status: Resolved (4) GERD (gastroesophageal reflux disease) Current Visit: Yes Status: Chronic (5) Pulmonary embolus Current Visit: Yes Status: Acute (6) Noncompliance with medication regimen Current Visit: Yes Status: Chronic - Time Spent with Patient Total time spent is greater than 50% in coordination of care (as documented) at patient's floor/unit and/or counseling patient: Internal Medicine: Result - Labs CBC & Chem 7: 05/24/18 05:00 05/24/18 05:00 Labs: Short CBC 05/24/18 Range/Units 05:00 WBC 7.2 (4.3-11.1) K/mcL Hgb 10.8 L D (11.5-15.4) g/dL Hct 32.3 L (35.3-44.9) % Plt Count 214 (140-400) K/mcL Neutrophils # 3.2 (1.6-8.9) K/mcL BMP 05/24/18 05:00 Sodium 135 L Potassium 4.0 Chloride 102 Carbon Dioxide 24 BUN 10 Creatinine 0.43 L Glucose 239 H Calcium 9.5 - ABG Interpretation ABG results: PT/INR, D-dimer PT 10.8 Seconds (9.4-12.1) 05/23/18 05:15 - Attending Attestation I examined this patient and my medical decision-making was reviewed with the Resident Physician on 05/24/18. I agree with the documented findings, disposition and treatment plan as described except to the extent set forth below. Ms Anderson is currently admitted for DKA and acute PE. She remains moderate to high risk due to potential for worsening clinical status. Ms Anderson feels OK. No fever or chills. Still using some IV Ativan. No CP or SOB. Discussed use of anticoagulation with her. Exam alert Comfortable Mucus membranes dry Heart reg and not tachy No wheeze abd soft No edema I/P 1. DKA resolved 2. PE - to go home on Xarelto Further diagnoses and plan as above Discussed risks of anticoagulation with patient and need for med due to PE. Needs alcohol cessation. Will have pharmacy see as well. <Shu Gill - Last Filed: 05/24/18 12:42> (1) GERD (gastroesophageal reflux disease) Qualifiers: Esophagitis presence: esophagitis presence not specified Qualified Code(s): K21.9 - Gastro-esophageal reflux disease without esophagitis (2) Leukocytosis Qualifiers: Leukocytosis type: unspecified Qualified Code(s): D72.829 - Elevated white blood cell count, unspecified (4) Diabetic ketoacidosis Qualifiers: Diabetes mellitus type: type 2 Diabetes mellitus complication detail: without coma Qualified Code(s): E11.10 - Type 2 diabetes mellitus with ketoacidosis without coma <Jorge Alberto Kinney - Last Filed: 05/24/18 14:34> (1) Alcohol dependence Qualifiers: Substance use status: in withdrawal Complication of substance-induced condition: uncomplicated Qualified Code(s): F10.230 - Alcohol dependence with withdrawal, uncomplicated (3) Diabetic ketoacidosis Qualifiers: Diabetes mellitus type: type 2 Diabetes mellitus complication detail: without coma Qualified Code(s): E11.10 - Type 2 diabetes mellitus with ketoacidosis without coma (4) GERD (gastroesophageal reflux disease) Qualifiers: Esophagitis presence: esophagitis presence not specified Qualified Code(s): K21.9 - Gastro-esophageal reflux disease without esophagitis (5) Pulmonary embolus Qualifiers: Pulmonary embolism type: other Chronicity: acute Acute cor pulmonale presence: without acute cor pulmonale Qualified Code(s): I26.99 - Other pulmonary embolism without acute cor pulmonale
[2018-05-25 04:45] LABS: Basophils % 0.4 %; Eosinophils # 0.3 K/mcL (0.0-0.6); Eosinophils % 3.5 %; Hemoglobin 10.1 g/dL (11.5-15.4); Immature Granulocytes % 1.5 % (0-4); Lymphocytes % 31.9 %; Mean Corpuscular HGB Conc 33.7 g/dL (31.6-35.5); Mean Corpuscular Hemoglobin 31.2 pg (28.0-33.3); Mean Corpuscular Volume 92.6 fL (83.0-100.0); Mean Platelet Volume 10.5 fL (9.4-12.4); Monocytes % 10.4 %; Neutrophils # 4.9 K/mcL (1.6-8.9); Platelet Count 256 K/mcL (140-400); Red Blood Count 3.24 M/mcL (3.82-4.97); Red Cell Distribution Width 13.8 % (11.5-14.5); Segmented Neutrophils % 52.3 %
[2018-05-25 05:01] LABS: BUN/Creatinine Ratio 26 (6-26); Blood Urea Nitrogen 11 mg/dL (6-20); Calcium 8.8 mg/dL (8.6-10.3); Carbon Dioxide 21 mEq/L (23-29); Chloride 99 mEq/L (98-107); Glucose 322 mg/dL (70-105); Osmolality,Calculated 290 (280-300); Potassium 3.4 mEq/L (3.5-5.1); Sodium 134 mEq/L (136-145); eGFR For Non-African Americans > 60 (> 60)
[2018-05-25] MEDS: *HR* Rivaroxaban 15 MG TABLET PO SCH ×2 (05:02→16:36)
[2018-05-25] MEDS ORDERED: *HR* LORazepam 2 MG/ML VIAL IVP ONE (05:51)
[2018-05-25 07:55] VITALS: BP 142/106
--- NOTE | 2018-05-25 08:16 | Internal Med Progress Note ---
<Shu Gill - Last Filed: 05/25/18 10:03> Hospitalist Progress Note - Encounter Date of Encounter: 05/25/18 Time of Encounter: 08:09 - Subjective Interval History: 38F with PMH ETOH abuse/withdrawal T2DM admitted for DKA. CT demonstrated small PEs, was started on Lovenox, transitioned to PO Xarelto 15mg BID. Genetic workup for coagulation disorders pending. IV Ativan transitioned to 25mg BID Librium as patient was somnolent when social work tried to assess yesterday. Overnight, Pt received 0.5mg IV Ativan overnight for anxiety, CIWA score 3. BP 148/109 at 0525 yesterday, no additional tx initiated. Glucose 280-168 yesterday on high sliding scale received total of 30units short acting and 20mg BID Levemir. Will change levemir to 25mg BID today. - Exam Vitals: Temp Pulse Resp BP Pulse Ox 98.2 F 99 17 142/106 96 05/25/18 05:25 05/25/18 07:53 05/25/18 07:53 05/25/18 07:53 05/25/18 07:53 Exam: General: A&O x 3. No acute distress. Well developed, well nourished. Head: atraumatic, normocephalic. ENT: No conjunctival injection, no scleral icterus. PERRLA. EOMI. Oropharynx no n- erythematous. mucous membranes moist. Neuro: No focal deficits, no speech deficit, no facial droop, mentating well.Mild tremor in franny UE with extension. Pulm: Lungs CTAB A/P. No wheezes, rales, ronchi. Cardio: RRR no m/r/g. Chest not tender to palpation. Abd: Soft, non-distended. Normoactive bowel sounds. Non-tender to palpation. No guarding. Non rigid. Bruising present in franny LE Extremities: Radial pulses 2+ franny, dorsalis pedis/posterior tibialis 2+ franny. No LE edema. No cyanosis, clubbing. Skin: warm, dry, intact. No rashes. Psych: Appropriate mood and affect. Answers questions appropriately. Cooperative with exam. - Assessment and Plan (1) GERD (gastroesophageal reflux disease) Current Visit: Yes Status: Chronic Assessment and Plan: -maalox prn -prilosec 20mg QD (2) Leukocytosis Current Visit: Yes Status: Resolved Assessment and Plan: resolved (3) Alcohol abuse Current Visit: Yes Status: Chronic Assessment and Plan: Pt has long standing hx of alcohol abuse and several admissions for withdrawal. Last drink [employer] Monday05/16/18 - social work unable to speak with patient yesterday as she was deeply sleeping after IV Ativan - Transitioned IV Ativan to PO Librium 25mg BID - Appreciate social work involvement as pt has no plan in place to maintain sobriety - Continue to monitor (4) Diabetic ketoacidosis Current Visit: Yes Status: Resolved Assessment and Plan: resolved DVT Prophylaxis: Xarelto 15mg BID - Time Spent with Patient Total time spent is greater than 50% in coordination of care (as documented) at patient's floor/unit and/or counseling patient: less than 15 minutes Plan of Care Discussed with: patient Internal Medicine: Result - Labs CBC & Chem 7: 05/25/18 04:03 05/25/18 04:03 Labs: Short CBC 05/25/18 Range/Units 04:03 WBC 9.3 (4.3-11.1) K/mcL Hgb 10.1 L (11.5-15.4) g/dL Hct 30.0 L (35.3-44.9) % Plt Count 256 (140-400) K/mcL Neutrophils # 4.9 (1.6-8.9) K/mcL BMP 05/25/18 04:03 Sodium 134 L Potassium 3.4 L Chloride 99 Carbon Dioxide 21 L BUN 11 Creatinine 0.43 L Glucose 322 H Calcium 8.8 - ABG Interpretation ABG results: PT/INR, D-dimer PT 10.8 Seconds (9.4-12.1) 05/23/18 05:15 Consult Discharge Plan - Plan Instructions: Chlordiazepoxide (By mouth), Thiamine (Vitamin B-1) (By mouth), Folic Acid (By mouth), Multivitamins, Adult Formula (By mouth), Rivaroxaban (By mouth), Chest Pain (DC), Pulmonary Embolism (DC), Pancreatitis (DC), Depression (DC), Diabetes Mellitus Type 2 in Adults (DC), Abuse of Alcohol (DC), Chronic Hypertension (DC), Anemia (GEN), Cigarette Smoking and Your Health, 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) Referrals: Maryellen Mcgowan MD [Non-Partnered Physician] - 05/31/18 10:45 am (appt is in [facility]) Prescriptions: Chlordiazepoxide [Librium] 25 mg PO BID 2 Days #4 capsule Folic Acid 1 mg PO DAILY #30 tablet Insulin Glargine,Hum.rec.anlog [Basaglar Kwikpen U-100] 20 unit SQ BID 15 Days #6 insuln.pen Multivit/Ca/Min/Fe/FA [Thera M Plus] 1 tab PO DAILY #30 tablet Rivaroxaban [Xarelto] 1 dose PO AD 30 Days #1 pack Thiamine HCl [Vitamin B-1] 50 mg PO DAILY #30 tablet <Jorge Alberto Kinney - Last Filed: 05/25/18 13:54> Hospitalist Progress Note - Exam Vitals: Temp Pulse Resp BP Pulse Ox 98.2 F 99 17 142/106 96 05/25/18 05:25 05/25/18 07:53 05/25/18 07:53 05/25/18 07:53 05/25/18 07:53 - Assessment and Plan (1) Alcohol dependence Current Visit: No Status: Chronic (2) Hypertension, essential Current Visit: No Status: Chronic (3) Diabetic ketoacidosis Current Visit: Yes Status: Resolved (4) GERD (gastroesophageal reflux disease) Current Visit: Yes Status: Chronic (5) Pulmonary embolus Current Visit: Yes Status: Acute (6) Noncompliance with medication regimen Current Visit: Yes Status: Chronic (7) Tobacco abuse Current Visit: No Status: Chronic - Time Spent with Patient Total time spent is greater than 50% in coordination of care (as documented) at patient's floor/unit and/or counseling patient: Internal Medicine: Result - Labs CBC & Chem 7: 05/25/18 04:03 05/25/18 04:03 Labs: Short CBC 05/25/18 Range/Units 04:03 WBC 9.3 (4.3-11.1) K/mcL Hgb 10.1 L (11.5-15.4) g/dL Hct 30.0 L (35.3-44.9) % Plt Count 256 (140-400) K/mcL Neutrophils # 4.9 (1.6-8.9) K/mcL BMP 05/25/18 04:03 Sodium 134 L Potassium 3.4 L Chloride 99 Carbon Dioxide 21 L BUN 11 Creatinine 0.43 L Glucose 322 H Calcium 8.8 - ABG Interpretation ABG results: PT/INR, D-dimer PT 10.8 Seconds (9.4-12.1) 05/23/18 05:15 - Attending Attestation See discharge summary of this date. <Shu Gill - Last Filed: 05/25/18 10:03> (1) GERD (gastroesophageal reflux disease) Qualifiers: Esophagitis presence: esophagitis presence not specified Qualified Code(s): K21.9 - Gastro-esophageal reflux disease without esophagitis (2) Leukocytosis Qualifiers: Leukocytosis type: unspecified Qualified Code(s): D72.829 - Elevated white bl ood cell count, unspecified (4) Diabetic ketoacidosis Qualifiers: Diabetes mellitus type: type 2 Diabetes mellitus complication detail: without coma Qualified Code(s): E11.10 - Type 2 diabetes mellitus with ketoacidosis without coma <Jorge Alberto Kinney - Last Filed: 05/25/18 13:54> (1) Alcohol dependence Qualifiers: Substance use status: in withdrawal Complication of substance-induced condition: uncomplicated Qualified Code(s): F10.230 - Alcohol dependence with withdrawal, uncomplicated (3) Diabetic ketoacidosis Qualifiers: Diabetes mellitus type: type 2 Diabetes mellitus complication detail: without coma Qualified Code(s): E11.10 - Type 2 diabetes mellitus with ketoacidosis without coma (4) GERD (gastroesophageal reflux disease) Qualifiers: Esophagitis presence: esophagitis presence not specified Qualified Code(s): K21.9 - Gastro-esophageal reflux disease without esophagitis (5) Pulmonary embolus Qualifiers: Pulmonary embolism type: other Chronicity: acute Acute cor pulmonale presence: without acute cor pulmonale Qualified Code(s): I26.99 - Other pulmonary embolism without acute cor pulmonale
[2018-05-25] MEDS ORDERED: Insulin DETEMIR 100 UNIT/ML X5UNITS SQ SCH (09:00)
[2018-05-25] MEDS: Insulin LISPRO 300 UNITS/3 ML VIAL SQ SCH ×2 (09:06→12:04)
[2018-05-25] MEDS: Thiamine (B-1) 100 MG TABLET PO SCH (09:07)
[2018-05-25] MEDS: Folic Acid 1 MG TABLET PO SCH (09:07)
[2018-05-25] MEDS: Multivit/Ca/Min/Fe/FA 1 TAB TABLET PO SCH (09:08)
[2018-05-25] MEDS: Lisinopril 20 MG TABLET PO SCH (09:08)
--- NOTE | 2018-05-25 10:07 | Discharge Summary ---
<Shu Gill - Last Filed: 05/25/18 10:04> - NOTES TO OUTPATIENT PROVIDER Notes to Outpatient Provider: genetic testing for hypercoagulibility pending, on Xarelto now for PE confirmed by CT. Pt understands if tests come back positive, she may need to be on Xarelto for longer. Cautioned pt that she is at increased bleeding risk and to avoid other things (alcohol) that may increase risk of bleeding. Needs social support to maintain sobriety. Orders not resulted at time of discharge: Pending orders 05/24/18 05:00 Antiphospholipid Ab High Spec AM 0400 Beta-2 Glycoprotein 1 IgG,M,A AM 0400 Factor V Leiden Routine Homocysteine AM 0400 Lupus Anticoagulant Panel AM 0400 05/26/18 04:00 Basic Metabolic Panel AM 0400 CBC [Complete Blood Count] [HEME] AM 0400 Date of Encounter: 05/25/18 Time of Encounter: 10:04 - Discharge Diagnosis (1) GERD (gastroesophageal reflux disease) Priority: Secondary Status: Chronic Assessment and Plan: -maalox prn -prilosec 20mg QD Qualifiers: Esophagitis presence: esophagitis presence not specified Qualified Code(s): K21.9 - Gastro-esophageal reflux disease without esophagitis (2) Leukocytosis Priority: Secondary Status: Resolved Assessment and Plan: Resolved during course of stay Qualifiers: Leukocytosis type: unspecified Qualified Code(s): D72.829 - Elevated white blood cell count, unspecified (3) Alcohol abuse Priority: Primary Status: Chronic Assessment and Plan: Pt has long standing hx of alcohol abuse and several admissions for withdrawal. Last drink [employer] Monday05/16/18 - social work unable to speak with patient yesterday as she was deeply sleeping after IV Ativan - Transitioned IV Ativan to PO Librium 25mg BID - Appreciate social work involvement as pt has no plan in place to maintain sobriety - Continue to monitor (4) Diabetic ketoacidosis Priority: Primary Status: Resolved Assessment and Plan: Resolved during course of stay Qualifiers: Diabetes mellitus type: type 2 Diabetes mellitus complication detail: without coma Qualified Code(s): E11.10 - Type 2 diabetes mellitus with ketoacidosis without coma Hospital course: Ms. Anderson is a 38 year old female with long standing hx of ETOH abuse/withdrawal who presented in DKA with gap >40 and glucose >800. She was admitted to the ICU on DKA and CIWA protocol and transitioned over the course of 24 hours to regular insulin and regular diet after gap closed and potassium was stable. CT revealed small PE, and she was placed on heparin. Pt was transferred to the floor, transitioned to oral Xarelto, and insulin regimen was adjusted to keep blood sugar <150. Over the course of several days, pt was transitioned from IV Ativan for CIWA scores 12-13 to PO Librium 25mg BID with CIWA scoring 2- 3. Genetic tests were ordered and are pending for hypercoagulability disorders a nd PCP was informed that they are still pending. Pt was informed of increased risk of bleeding on Xarelto and to avoid other medications and alcohol which could further increase bleeding risk. Furthermore, pt was informed to the report to the ED/UC if she develops any bleeding which does not cease within 10-15mins with pressure applied. Pt was given an opportunity to ask questions and all of her concerns were addressed. Pt understands need for follow-up, checking her sugars four times per day, and maintaining sobriety. Discharge discussed with: patient Time spent discussing smoking cessation with patient: 3 to 10 minutes - Time Spent with Patient Total time spent providing and/or coordinating discharge services: Less than 30 minutes - Discharge Medications Prescriptions: Chlordiazepoxide [Librium] 25 mg PO BID 2 Days #4 capsule Folic Acid 1 mg PO DAILY #30 tablet Insulin Glargine,Hum.rec.anlog [Basaglar Kwikpen U-100] 20 unit SQ BID 15 Days #6 insuln.pen Multivit/Ca/Min/Fe/FA [Thera M Plus] 1 tab PO DAILY #30 tablet Rivaroxaban [Xarelto] 1 dose PO AD 30 Days #1 pack Thiamine HCl [Vitamin B-1] 50 mg PO DAILY #30 tablet Home Medications: Lisinopril 30 mg PO DAILY 05/03/18 [History] Pantoprazole Sodium [Protonix] 40 mg PO DAILY 05/21/18 [History] Rivaroxaban [Xarelto] 1 dose PO AD 30 Days #1 pack 05/23/18 [Rx] Chlordiazepoxide [Librium] 25 mg PO BID 2 Days #4 capsule 05/25/18 [Rx] Folic Acid 1 mg PO DAILY #30 tablet 05/25/18 [Rx] Insulin Glargine,Hum.rec.anlog [Albertaglanjali Broussard U-100] 20 unit SQ BID 15 Days #6 insuln.pen 05/25/18 [Rx] Multivit/Ca/Min/Fe/FA [Thera M Plus] 1 tab PO DAILY #30 tablet 05/25/18 [Rx] Omeprazole [PriLOSEC] 20 mg PO DAILY@0730 capsule. 05/25/18 [Rx] Thiamine HCl [Vitamin B-1] 50 mg PO DAILY #30 tablet 05/25/18 [Rx] Allergies/Adverse Reactions: Allergy/AdvReac Type Severity Reaction Status Date / Time No Known Allergies Allergy Verified 05/21/18 08:02 Date of admission: 05/20/18 05:42 Primary care physician: PCP NONE Consults: 05/22/18 12:10 Consult to Pattern Ruler [CONS] Routine Reason for SW Consult: Alcoholism/substance abuse - Constitutional Vitals: Temp Pulse Resp BP Pulse Ox 98.2 F 99 17 142/106 96 05/25/18 05:25 05/25/18 07:53 05/25/18 07:53 05/25/18 07:53 05/25/18 07:53 Exam: General: A&O x 3. No acute distress. Well developed, well nourished. Head: atraumatic, normocephalic. ENT: No conjunctival injection, no scleral icterus. PERRLA. EOMI. Oropharynx non- erythematous. mucous membranes moist. Neuro: No focal deficits, no speech deficit, no facial droop, mentating well.Mild tremor in franny UE with extension. Pulm: Lungs CTAB A/P. No wheezes, rales, ronchi. Cardio: RRR no m/r/g. Chest not tender to palpation. Abd: Soft, non-distended. Normoactive bowel sounds. Non-tender to palpation. No guarding. Non rigid. Bruising present in franny LE Extremities: Radial pulses 2+ franny, dorsalis pedis/posterior tibialis 2+ franny. No LE edema. No cyanosis, clubbing. Skin: warm, dry, intact. No rashes. Psych: Appropriate mood and affect. Answers questions appropriately. Cooperative with exam. 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) Follow Up With: Maryellen Mcgowan MD [Non-Partnered Physician] - 05/31/18 10:45 am (appt is in [facility]) - Diet and Activity Activity: increase activity as tolerated Diet: advance to your usual diet <Jorge Alberto Kinney - Last Filed: 05/25/18 13:54> Orders not resulted at time of discharge: Pending orders 05/24/18 05:00 Antiphospholipid Ab High Spec AM 0400 Beta-2 Glycoprotein 1 IgG,M,A AM 0400 Factor V Leiden Routine Homocysteine AM 0400 Lupus Anticoagulant Panel AM 0400 05/26/18 04:00 Basic Metabolic Panel AM 0400 CBC [Complete Blood Count] [HEME] AM 0400 - Discharge Diagnosis (1) Alcohol dependence Priority: Secondary Status: Chronic Qualifiers: Substance use status: in withdrawal Complication of substance-induced condition: uncomplicated Qualified Code(s): F10.230 - Alcohol dependence with withdrawal, uncomplicated (2) Hypertension, essential Priority: Secondary Status: Chronic (3) Diabetic ketoacidosis Priority: Primary Status: Resolved Qualifiers: Diabetes mellitus type: type 2 Diabetes mellitus complication detail: without coma Qualified Code(s): E11.10 - Type 2 diabetes mellitus with ketoa cidosis without coma (4) GERD (gastroesophageal reflux disease) Status: Chronic Qualifiers: Esophagitis presence: esophagitis presence not specified Qualified Code(s): K21.9 - Gastro-esophageal reflux disease without esophagitis (5) Pulmonary embolus Priority: Secondary Status: Acute Qualifiers: Pulmonary embolism type: other Chronicity: acute Acute cor pulmonale presence: without acute cor pulmonale Qualified Code(s): I26.99 - Other pulmonary embolism without acute cor pulmonale (6) Noncompliance with medication regimen Priority: Secondary Status: Chronic (7) Tobacco abuse Priority: Secondary Status: Chronic Hospital course: Ms. Anderson is a 38 year old female - Time Spent with Patient Total time spent providing and/or coordinating discharge services: 38min Date of admission: 05/20/18 05:42 Primary care physician: PCP NONE Consults: 05/22/18 12:10 Consult to Pattern Ruler [CONS] Routine Reason for SW Consult: Alcoholism/substance abuse - Constitutional Vitals: Temp Pulse Resp BP Pulse Ox 98.2 F 99 17 142/106 96 05/25/18 05:25 05/25/18 07:53 05/25/18 07:53 05/25/18 07:53 05/25/18 07:53 - Attending Attestation I examined this patient and my medical decision-making was reviewed with the Resident Physician on 05/25/18. I agree with the documented findings, disposition and treatment plan as described except to the extent set forth below. Ms Anderson has been admitted for acute DKI and acute PE. Her blood sugar has been fairly controlled. She is afebrile and has no CP or respiratory distress. She is ready for discharge home. Exam alert comfortabl Mucus membranes dry Heart reg No wheeze Abd soft Plan D/C home today Again reiterated need to stop ETOH and take insulin. Reiterated risks with being on anticoagulant but that it is needed due to PE. Told some labs are pending and need to follow up with PCP.
[2018-05-25 14:55] LABS: Homocysteine 14 umol/L (<=10)
[2018-05-26 11:39] LABS: Antiphospholipid IgG High Spec 3 GPL (0-14); Antiphospholipid IgM High Spec 5 MPL (0-14)
[2018-05-26 22:42] LABS: FACV Specimen WHOLE BLOOD
[2018-05-27 01:36] LABS: APTT (LE Anticoag) 39 sec (32-48); Diluted Russell Viper Venom 30 sec (33-44); PT (LE-Anticoag) 13.5 sec (12.0-15.5)
[2018-05-27 07:32] LABS: Fac V Leiden R506Q Mut Result NEGATIVE
== END 2018-05-25 17:43 | disposition home or self-care (01) | DRG 420 ==
LOC: ICNU → SUATTDRO 05-20 05:42 → 2NENU 05-21 22:46
PROVIDERS: ADMIT Pediatrics; ATTEND Internal Medicine

== ENCOUNTER 2019-08-19 05:35 | Observation (INO) ==
[2019-08-19] MEDS ORDERED: D5% in 0.45% NACL 1,000 ML IVC PRN (07:41)
[2019-08-19] MEDS ORDERED: Insulin Regular, Human 100 UNIT/ML IV PRN ×2 (07:41)
[2019-08-19] MEDS ORDERED: *HR* Dextrose 50 % in Water (Syg) 50 ML SYRINGE IVP PRN (07:41)
[2019-08-19] MEDS ORDERED: Naloxone 0.4 MG/ML INJ IVP PRN (07:43)
[2019-08-19] MEDS ORDERED: Ondansetron 4 MG/2 ML VIAL IVP PRN (07:43)
[2019-08-19] MEDS ORDERED: Insulin Human Regular 100 UNIT in 0.9 % Sodium Chloride 100 ML IVC SCH (07:45)
[2019-08-19] MEDS: Gabapentin 100 MG CAPSULE PO SCH ×3 (08:29→20:06)
[2019-08-19] MEDS: D5% in 0.45% NACL w KCl 20 MEQ/1,000 ML MLS IVC PRN ×2 (08:29→12:47)
[2019-08-19 09:15] LABS: Estimated Average Glucose 272 mg/dl
[2019-08-19] MEDS: 0.45 % Sodium Chloride w/KCl 20 MEQ/1,000 ML MLS IVC SCH ×3 (09:17→18:11)
[2019-08-19] MEDS: *HR* Promethazine 25 MG/ML VIAL IVP PRN ×3 (09:20→21:32)
[2019-08-19] MEDS ORDERED: Potassium Phosphate 44 MEQ in 0.9 % Sodium Chloride 250 ML IVPB ONE (09:24)
[2019-08-19 09:25] LABS: Magnesium 1.1 mg/dL (1.6-2.6)
[2019-08-19] MEDS: Acetaminophen 325 MG TABLET PO PRN (11:31)
[2019-08-19] MEDS: 0.9 % Sodium Chloride 1,000 ML IVC SCH ×2 (12:00→18:54)
[2019-08-19] MEDS: Ondansetron 4 MG/2 ML VIAL IVP PRN ×3 (12:47→23:50)
[2019-08-19 13:08] LABS: BUN/Creatinine Ratio 16 (6-26); Blood Urea Nitrogen 10 mg/dL (6-20); Calcium 7.9 mg/dL (8.6-10.3); Carbon Dioxide 14 mEq/L (23-29); Chloride 105 mEq/L (98-107); Glucose 166 mg/dL (70-105); Osmolality,Calculated 275 (280-300); Potassium 3.8 mEq/L (3.5-5.1); Sodium 131 mEq/L (136-145); eGFR For African Americans > 60 (> 60); eGFR For Non-African Americans > 60 (> 60)
[2019-08-19] MEDS ORDERED: Insulin DETEMIR 100 UNIT/ML X5UNITS SQ ONE (16:12)
[2019-08-19] MEDS ORDERED: 0.9 % Sodium Chloride 1,000 ML ONE (17:33)
[2019-08-19 17:46] LABS: BUN/Creatinine Ratio 16 (6-26); Blood Urea Nitrogen 8 mg/dL (6-20); Calcium 7.4 mg/dL (8.6-10.3); Carbon Dioxide 16 mEq/L (23-29); Chloride 109 mEq/L (98-107); Glucose 61 mg/dL (70-105); Osmolality,Calculated 274 (280-300); Potassium 4.3 mEq/L (3.5-5.1); Sodium 134 mEq/L (136-145); eGFR For African Americans > 60 (> 60); eGFR For Non-African Americans > 60 (> 60)
[2019-08-19] MEDS ORDERED: 0.9 % Sodium Chloride 1,000 ML IV ONE (17:46)
[2019-08-19] MEDS: Insulin DETEMIR 100 UNIT/ML X5UNITS SQ SCH (21:32)
[2019-08-20] MEDS: Acetaminophen 325 MG TABLET PO PRN (00:06)
[2019-08-20] MEDS: 0.9 % Sodium Chloride 1,000 ML IVC SCH (01:20)
[2019-08-20 01:21] LABS: Basophils % 0.6 %; Eosinophils # 0.1 K/mcL (0.0-0.6); Hematocrit 32.9 % (35.3-44.9); Hemoglobin 11.1 g/dL (11.5-15.4); Immature Granulocytes % 0.6 % (0-4); Lymphocytes # 2.1 K/mcL (0.6-4.6); Lymphocytes % 33.7 %; Mean Corpuscular HGB Conc 33.7 g/dL (31.6-35.5); Mean Corpuscular Hemoglobin 32.7 pg (28.0-33.3); Mean Corpuscular Volume 97.1 fL (83.0-100.0); Mean Platelet Volume 10.2 fL (9.4-12.4); Monocytes # 0.8 K/mcL (0.0-1.3); Monocytes % 12.1 %; Neutrophils # 3.3 K/mcL (1.6-8.9); Platelet Count 129 K/mcL (140-400); Red Blood Count 3.39 M/mcL (3.82-4.97); Red Cell Distribution Width 11.9 % (11.5-14.5); White Blood Count 6.3 K/mcL (4.3-11.1)
[2019-08-20 01:41] LABS: BUN/Creatinine Ratio 18 (6-26); Blood Urea Nitrogen 7 mg/dL (6-20); Carbon Dioxide 17 mEq/L (23-29); Chloride 111 mEq/L (98-107); Glucose 129 mg/dL (70-105); Magnesium 1.4 mg/dL (1.6-2.6); Osmolality,Calculated 280 (280-300); Potassium 3.5 mEq/L (3.5-5.1); Sodium 135 mEq/L (136-145); eGFR For African Americans > 60 (> 60); eGFR For Non-African Americans > 60 (> 60)
[2019-08-20] MEDS ORDERED: Potassium Phosphate 44 MEQ in 0.9 % Sodium Chloride 250 ML IVPB ONE (01:43)
[2019-08-20] MEDS: *HR* Promethazine 25 MG/ML VIAL IVP PRN (03:50)
[2019-08-20] MEDS: *HR* Enoxaparin 40 MG/0.4 ML SYRINGE SQ SCH (05:54)
[2019-08-20] MEDS ORDERED: Dextrose Gel 15 GM/37.5 ML TUBE PO PRN ×2 (08:15)
[2019-08-20] MEDS ORDERED: D5% in Water 1,000 ML IVC PRN (08:15)
[2019-08-20] MEDS: Gabapentin 100 MG CAPSULE PO SCH ×3 (08:29→21:25)
[2019-08-20] MEDS: Insulin LISPRO 300 UNITS/3 ML VIAL SQ SCH ×2 (12:26→18:01)
[2019-08-20] MEDS: Ondansetron 4 MG/2 ML VIAL IVP PRN ×2 (15:13→21:25)
[2019-08-20] MEDS: Insulin DETEMIR 100 UNIT/ML X5UNITS SQ SCH (21:26)
[2019-08-21] MEDS: Acetaminophen 325 MG TABLET PO PRN (01:04)
[2019-08-21 03:13] VITALS: BP 95/70
[2019-08-21] MEDS: *HR* Enoxaparin 40 MG/0.4 ML SYRINGE SQ SCH (04:40)
[2019-08-21 07:08] LABS: Hematocrit 35.4 % (35.3-44.9); Hemoglobin 12.2 g/dL (11.5-15.4); Mean Corpuscular HGB Conc 34.5 g/dL (31.6-35.5); Mean Corpuscular Hemoglobin 32.6 pg (28.0-33.3); Mean Corpuscular Volume 94.7 fL (83.0-100.0); Mean Platelet Volume 10.7 fL (9.4-12.4); Platelet Count 139 K/mcL (140-400); Red Blood Count 3.74 M/mcL (3.82-4.97); Red Cell Distribution Width 12.1 % (11.5-14.5); White Blood Count 5.2 K/mcL (4.3-11.1)
[2019-08-21 07:26] LABS: Phosphorous 1.7 mg/dL (2.7-4.5)
[2019-08-21 07:32] LABS: BUN/Creatinine Ratio 10 (6-26); Blood Urea Nitrogen 4 mg/dL (6-20); Calcium 7.8 mg/dL (8.6-10.3); Carbon Dioxide 22 mEq/L (23-29); Chloride 106 mEq/L (98-107); Glucose 139 mg/dL (70-105); Osmolality,Calculated 285 (280-300); Potassium 3.5 mEq/L (3.5-5.1); Sodium 138 mEq/L (136-145); eGFR For African Americans > 60 (> 60); eGFR For Non-African Americans > 60 (> 60)
[2019-08-21] MEDS: Insulin LISPRO 300 UNITS/3 ML VIAL SQ SCH ×2 (09:27→12:32)
[2019-08-21] MEDS: Gabapentin 100 MG CAPSULE PO SCH (09:27)
== END 2019-08-21 15:12 | disposition home or self-care (01) ==
LOC: CDU → SUATTDRO 07:02 → 2NNU 18:23 → 3ANU 08-20 13:43
PROVIDERS: ADMIT Internal Medicine; ATTEND Internal Medicine